=== PATIENT | female | born 1955 | race Caucasian/White ===

== ENCOUNTER 2017-02-26 08:13 | Observation (INO) | payer MEDICARE, BC, SELFPAY ==
[2017-02-26] VITALS (11 sets, daily range): BP systolic 95–157; BP diastolic 48–92; PULSE 65–83; RESP 18–22; TEMP 35.9–37.1; O2SAT 93–98; BMI 36.5; BMI 36.3
--- NOTE | 2017-02-26 | CT_ITS ---
CT angio chest COMPARISON: None HISTORY: Chest pain radiating to back TECHNIQUE: Multiple axial scans obtained from the thoracic inlet the hemidiaphragms and were performed after rapid injection of IV contrast. Sagittal and coronal reformats were evaluated as well. FINDINGS: The lung temple are well expanded. There is excellent vascular opacification and there is no CT evidence of pulmonary emboli. The lung tmeple are free of active infiltrate. There are calcified granulomata in both lung temple. There is no pleural fluid. There are calcified hilar nodes bilaterally. IMPRESSION: No CT evidence of pulmonary emboli and is no other acute chest pathology identified.
--- NOTE | 2017-02-26 08:29 | XR_ITS ---
XR chest 2V COMPARISON: Portable upright chest 09/11/2016 HISTORY: Chest pain TECHNIQUE: PA and lateral chest FINDINGS: The lung temple are well expanded and appear clear of infiltrate. There are multiple calcified hilar nodes bilaterally in the calcified granulomata in both lung temple. Cardiac size is normal and the vascularity is normal and is no pleural fluid. IMPRESSION: Old granulomatous disease, no acute chest pathology noted
--- NOTE | 2017-02-26 08:43 | CT_ITS ---
CT abdomen pelvis w con COMPARISON: CT scan abdomen pelvis 01/05/2015 HISTORY: Abdominal pain especially right upper quadrant, patient has known gallstones. TECHNIQUE: Multiaxial scans obtained from the hemidiaphragms the pelvic floor and were performed with IV contrast only. Sagittal and coronal reformats were evaluated as well. FINDINGS: The lower lung temple are clear. The liver spleen stomach and pancreas appear grossly normal. The gallbladder is normal in size and there are 2-3 calcified gallstones layering along the dependent wall. There is no pericholecystic fluid noted. The adrenal glands are normal. The kidneys are normal in size and show symmetrical function, there is a small benign-appearing cortical cyst upper pole left kidney measuring 1.8 cm in diameter. Small bowel is normal. I do not definite identify the appendix but there are no pericecal inflammatory changes. There is large amount stool in the cecum and ascending colon and proximal transverse colon. There is been previous hysterectomy. Urinary bladder is partially decompressed, there is no free fluid in the pelvis. IMPRESSION: Cholelithiasis with no obvious inflammatory changes involving the gallbladder, other nonacute findings as described above. There does appear to be some degree of constipation present
--- NOTE | 2017-02-26 08:46 | HMH.EDGENADL ---
ED Disposition Clinical Impression: Chest pain, Hypertension, Hyperlipidemia, Tobacco use Disposition: Still a Patient Condition on Discharge: Good - Critical Care Critical Care Time: No Attestation: On 02/26/17, the high probability of a clinically significant, sudden or life threatening deterioration of the following system(s) required my full and direct attention, intervention and personal management. The time I documented below is in addition to time spent performing reported procedures but includes the following listed in this critical care notation. Medical Decision Making Vital Signs: 02/26/17 08:13 02/26/17 08:15 02/26/17 08:40 Temperature 98.8 F 98.8 F Temperature Source Oral Oral Pulse Rate [Right Brachial] 83 83 81 Respiratory Rate 22 22 20 Blood Pressure [Right Arm] 157/92 157/92 123/76 Blood Pressure Mean [Right Arm] 113 113 91 Blood Pressure Source [Right Arm] Automatic Cuff Automatic Cuff Manual Cuff/ Doppler Blood Pressure Position [Right Arm] Sitting Sitting 02 Sat by Pulse Oximetry 98 98 94 L Oxygen Delivery Method Room Air Room Air Room Air 02/26/17 08:47 02/26/17 09:43 Temperature 98.8 F 98.0 F Temperature Source Oral Oral Pulse Rate [Right Brachial] 83 70 Respiratory Rate 22 18 Blood Pressure [Right Arm] 157/92 119/66 Blood Pressure Mean [Right Arm] 113 83 Blood Pressure Source [Right Arm] Automatic Cuff Automatic Cuff Blood Pressure Position [Right Arm] Sitting Sitting 02 Sat by Pulse Oximetry 98 93 L Oxygen Delivery Method Room Air Room Air - Lab Data Lab Results 02/26/17 08:20: WBC 12.5 H, RBC 4.09 L, Hgb 11.6 L, Hct 36.8 L, MCV 90.0, MCH 28.4, MCHC 31.6 L, RDW 13.2, Plt Count 399, MPV 7.8, Neut % (Auto) 60.8, Lymph % (Auto) 33.1, Maverick % (Auto) 4.0, Eos % (Auto) 1.4, Baso % (Auto) 0.7, Neut # (Auto) 7.6, Lymph # (Auto) 4.1, Maverick # (Auto) 0.5, Eos # (Auto) 0.2, Baso # (Auto) 0.1 02/26/17 08:20: Sodium 139, Potassium 3.7, Chloride 102, Carbon Dioxide 28, Anion Gap 12.7, BUN 15, Creatinine 1.05 H, Estimated Creat Clear 84, Estimated GFR 53 L, Est GFR ( Amer) 65, Glucose 100, Total Bilirubin 0.2, Direct Bilirubin 0.1, AST 17, ALT 21, Alkaline Phosphatase 87, Total Creatine Kinase 91, CK-MB (CK-2) < 0.5, CK-MB (CK-2) Rel Index 0.5, Troponin I < 0.02, Total Protein 7.8, Albumin 3.4, Amylase 65, Lipase 225 02/26/17 08:20: Lactic Acid 0.9 Result diagrams: 02/26/17 08:20 02/26/17 08:20 Orders (Tests/Meds): ED MEDICATIONS Generic Name Dose Route Start Last Admin Trade Name Freq PRN Reason Stop Dose Admin Acetaminophen 650 mg 02/26/17 12:13 02/28/17 02:51 Acetaminophen 325mg Tab PO 03/28/17 12:12 650 mg Q4HP PRN Administration As Needed for Fever or Pain Famotidine 20 mg 02/26/17 21:00 02/27/17 20:26 Pepcid 20mg/2ml Vial IV 03/28/17 20:59 20 mg Q12 HAROLDO Administration Fentanyl Citrate 50 mcg 02/28/17 07:39 Fentanyl 100mcg/2ml Vial IV 03/01/17 07:39 Q3MINP PRN Moderate to Severe Pain Fentanyl Citrate 25 mcg 02/28/17 07:39 Fentanyl 100mcg/2ml Vial IV 03/01/17 07:39 Q3MINP PRN Moderate to Severe Pain Flumazenil 0.2 mg 02/28/17 07:39 Romazicon 0.1mg/Ml 5ml Vial IV 02/28/17 23:00 NEEDED PRN Sedation Heparin Sodium (Porcine) 5,000 unit 02/28/17 07:39 Heparin Sodium 5,000 Units/Ml Vial IV 03/01/17 07:39 NEEDED PRN Emergency Box Claims Associate Lactated Ringer's 1,000 mls @ 50 mls/hr 02/26/17 13:30 02/27/17 18:56 Lactated Ringer's 1000 Ml Bag IV 03/28/17 13:29 50 mls/hr .Q20H HAROLDO Administration Sodium Chloride 1,000 mls @ 25 mls/hr 02/28/17 07:45 02/28/17 10:00 Sod Chloride 0.9% 1000ml Bag IV 03/01/17 07:39 25 mls/hr .Q25H HAROLDO Administration Midazolam HCl 1 mg 02/28/17 07:39 Midazolam 2mg/2ml Vial IV 03/01/17 07:40 Q3MINP PRN Sedation Midazolam HCl 1 mg 02/28/17 07:39 Midazolam 1mg/Ml 5ml Vial IV 03/01/17 07:39
--- NOTE | 2017-02-26 08:49 | ED_ITS ---
ED Disposition Clinical Impression: Chest pain, Hypertension, Hyperlipidemia, Tobacco use Disposition: Still a Patient Condition on Discharge: Good - Critical Care Critical Care Time: No Attestation: On 02/26/17, the high probability of a clinically significant, sudden or life threatening deterioration of the following system(s) required my full and direct attention, intervention and personal management. The time I documented below is in addition to time spent performing reported procedures but includes the following listed in this critical care notation. Medical Decision Making Vital Signs: 02/26/17 08:13 02/26/17 08:15 02/26/17 08:40 Temperature 98.8 F 98.8 F Temperature Source Oral Oral Pulse Rate [Right Brachial] 83 83 81 Respiratory Rate 22 22 20 Blood Pressure [Right Arm] 157/92 157/92 123/76 Blood Pressure Mean [Right Arm] 113 113 91 Blood Pressure Source [Right Arm] Automatic Cuff Automatic Cuff Manual Cuff/ Doppler Blood Pressure Position [Right Arm] Sitting Sitting 02 Sat by Pulse Oximetry 98 98 94 L Oxygen Delivery Method Room Air Room Air Room Air 02/26/17 08:47 02/26/17 09:43 Temperature 98.8 F 98.0 F Temperature Source Oral Oral Pulse Rate [Right Brachial] 83 70 Respiratory Rate 22 18 Blood Pressure [Right Arm] 157/92 119/66 Blood Pressure Mean [Right Arm] 113 83 Blood Pressure Source [Right Arm] Automatic Cuff Automatic Cuff Blood Pressure Position [Right Arm] Sitting Sitting 02 Sat by Pulse Oximetry 98 93 L Oxygen Delivery Method Room Air Room Air - Lab Data Lab Results 02/26/17 08:20: WBC 12.5 H, RBC 4.09 L, Hgb 11.6 L, Hct 36.8 L, MCV 90.0, MCH 28.4, MCHC 31.6 L, RDW 13.2, Plt Count 399, MPV 7.8, Neut % (Auto) 60.8, Lymph % (Auto) 33.1, Jerome % (Auto) 4.0, Eos % (Auto) 1.4, Baso % (Auto) 0.7, Neut # ( Auto) 7.6, Lymph # (Auto) 4.1, Jerome # (Auto) 0.5, Eos # (Auto) 0.2, Baso # (Auto ) 0.1 02/26/17 08:20: Sodium 139, Potassium 3.7, Chloride 102, Carbon Dioxide 28, Anion Gap 12.7, BUN 15, Creatinine 1.05 H, Estimated Creat Clear 84, Estimated GFR 53 L, Est GFR ( Amer) 65, Glucose 100, Total Bilirubin 0.2, Direct Bilirubin 0.1, AST 17, ALT 21, Alkaline Phosphatase 87, Total Creatine Kinase 91 , CK-MB (CK-2) < 0.5, CK-MB (CK-2) Rel Index 0.5, Troponin I < 0.02, Total Protein 7.8, Albumin 3.4, Amylase 65, Lipase 225 02/26/17 08:20: Lactic Acid 0.9 Result diagrams: 02/26/17 08:20 02/26/17 08:20 Orders (Tests/Meds): ED MEDICATIONS Generic Name Dose Route Start Last Admin Trade Name Freq PRN Reason Stop Dose Admin Acetaminophen 650 mg 02/26/17 12:13 02/28/17 02:51 Acetaminophen 325mg Tab PO 03/28/17 12:12 650 mg Q4HP PRN Administration As Needed for Fever or Pain Famotidine 20 mg 02/26/17 21:00 02/27/17 20:26 Pepcid 20mg/2ml Vial IV 03/28/17 20:59 20 mg Q12 HAROLDO Administration Fentanyl Citrate 50 mcg 02/28/17 07:39 Fentanyl 100mcg/2ml Vial IV 03/01/17 07:39 Q3MINP PRN Moderate to Severe Pain Fentanyl Citrate 25 mcg 02/28/17 07:39 Fentanyl 100mcg/2ml Vial IV 03/01/17 07:39 Q3MINP PRN Moderate to Severe Pain Flumazenil 0.2 mg 02/28/17 07:39 Romazicon 0.1mg/Ml 5ml Vial IV 02/28/17 23:00 NEEDED PRN Sedatio
[2017-02-26 08:56] LABS: Hematocrit 36.8 % (37.0-47.0); Hemoglobin 11.6 g/dL (12.2-16.2); Mean Corpuscular HGB Conc 31.6 g/dL (31.8-35.4); Mean Corpuscular Hemoglobin 28.4 pg (27.0-31.2); Red Blood Count 4.09 M/mm3 (4.20-5.40); Red Cell Distribution Width 13.2 % (11.5-17.5); White Blood Count 12.5 K/mm3 (4.8-10.8)
[2017-02-26 08:57] LABS: Basophils # 0.1 K/mm3 (0-0.2); Basophils % 0.7 % (0.1-2.0); Eosinophils # 0.2 K/mm3 (0.0-0.4); Eosinophils % 1.4 % (0.1-12.0); Lymphocytes # 4.1 K/mm3 (0.7-4.5); Lymphocytes % 33.1 K/mm3 (10-50); Mean Platelet Volume 7.8 fl (7.4-10.4); Monocytes # 0.5 K/mm3 (0.1-1.0); Neutrophils # 7.6 K/mm3 (1.8-7.8); Neutrophils % 60.8 % (37.0-80.0); Platelet Count 399 K/mm3 (142-424)
[2017-02-26 09:10] LABS: Amylase 65 U/L (25-125); Anion Gap 12.7 mEq/L (5-15); Blood Urea Nitrogen 15 mg/dL (7-18); CKMB Relative Index 0.5 U/L (0-4.0); Carbon Dioxide 28 mmol/L (21.0-32.0); Chloride 102 mmol/L (98-107); Creatine Kinase 91 U/L (26-192); Creatine Kinase MB < 0.5 mg/ml (0.0-3.6); Creatinine Clearance Estimated 84 mL/min (0-300); Creatinine,Serum 1.05 mg/dL (0.55-1.02); Estimated Glomerular Filt Rate 53 ml/min (>60); GFR (African American) 65 ML/MIN (>60); Glucose 100 mg/dL (74-106); Lipase 225 u/L (73-393); Potassium 3.7 mmoL/L (3.5-5.1); Sodium 139 mmol/L (136-145); Troponin I < 0.02 ng/ml (0.00-0.06)
[2017-02-26 09:43] LABS: Alanine Aminotransferase 21 U/L (12-78); Albumin Level 3.4 gm/dL (3.4-5.0); Alkaline Phosphatase 87 U/L (46-116); Aspartate Amino Transferase 17 U/L (15-37); Bilirubin,Direct 0.1 mg/dL (0.0-0.2); Bilirubin,Total 0.2 mg/dL (0.2-1.0); Total Protein,Serum 7.8 gm/dL (6.4-8.2)
[2017-02-26 10:15] LABS: Lactic Acid 0.9 mmol/L (0.4-2.0)
--- NOTE | 2017-02-26 17:08 | PC.NURSE ---
PATIENT IS A 61 YEAR OLD FEMALE ADMITTED TODAY FOR CHEST PAIN.SHE WAS GIVEN NITRO IN THE ER, AFTER COMING TO FLOOR SHE SAID HER CHEST WAS HURTING AGAIN, I GAVE HER ANOTHER NITRO AND SHE HAS NOT HAD ANY MORE CHEST PAIN. PATIENT IS RESTING IN BED AT THIS TIME , AT BEDSIDE. NO DISTRESS NOTED/ WILL CONTINUE TO MONITOR.
[2017-02-27] VITALS (10 sets, daily range): BP systolic 90–135; BP diastolic 48–72; PULSE 60–80; RESP 18–20; TEMP 36.4–36.8; O2SAT 90–96
[2017-02-27 04:43] LABS: Troponin I < 0.02 ng/ml (0.00-0.06)
--- NOTE | 2017-02-27 06:16 | PC.NURSE ---
pt has c/o chest pain, episgastric discomfort and stomach cramps this shift. she has been nsr on telemetry. v/s have remained stable. pt is c/o a headache this am. medications administered per apr. She is npo at this time for [facility] consult. no other concerns at this time. will continue to monitor.
--- NOTE | 2017-02-27 07:35 | HMH.PHAVTE ---
[facility] Pharmacy VTE Monitoring - Patient Demographics Admission date: 02/27/17 Report Date: 02/27/17 Time: 07:35 Allergies/Adverse Reactions: latex [LATEX] Allergy (Intermediate, Verified 02/26/17 08:49) I-RASH codeine [CODEINE] Allergy (Mild, Verified 02/26/17 08:49) NA-NAUSEA, CHEST PRESSURE tuberculin,PPD,multi-puncture [TUBERCULIN,PPD,MULTI-PUNCTURE] Allergy (Mild, Verified 02/26/17 08:49) POSITIVE REACTOR sulfamethoxazole [From BACTRIM] Allergy (Unknown, Verified 02/26/17 08:49) RASH,VOMITING trimethoprim [From BACTRIM] Allergy (Unknown, Verified 02/26/17 08:49) Height: 1.6 m Weight: 92.986 kg Patient Problems: Current Active Problems Chest pain (Acute) Hypertension (Acute) Hyperlipidemia (Acute) Tobacco use (Acute) - VTE Risk Labs: VTE Related Lab Results Hgb 11.6 g/dL (12.2-16.2) L 02/26/17 08:20 Hct 36.8 % (37.0-47.0) L 02/26/17 08:20 Plt Count 399 K/mm3 (142-424) 02/26/17 08:20 BUN 15 mg/dL (7-18) 02/26/17 08:20 Creatinine 1.05 mg/dL (0.55-1.02) H 02/26/17 08:20 Estimated Creat Clear 84 mL/min (0-300) 02/26/17 08:20 Was VTE Risk Assessment Performed: Yes VTE Risk Level: Very Low Risk - Prophylaxis VTE Prophylaxis Ordered?: Yes Types of VTE Prophylaxis: TEDS Knee High Location of Applied Device: Bilateral Lower Extremeties - VTE Diagnosis Confirmed Treatment or plan recommended: Continue Current Treatment
--- NOTE | 2017-02-27 08:03 | PC.NURSE ---
REPORT HANDED OF TO VICKIE
--- NOTE | 2017-02-27 08:25 | HMH.CARDCON2 ---
History of Present Illness Consult date: 02/27/17 Requesting physician: Luis Eckert Consult reason: chest pain Chief complaint: chest pain, palpitations History of present illness: 61-year-old white female with history of hypertension, hyperlipidemia and long-term tobacco use admitted to hospital through the ER for recurrent chest pain. Patient relates recent progressive episodes of chest discomfort and palpitations to the point that they are waking her from sleep at night. Last night symptoms were worse in intensity frequency and duration which prompted EMS call and transport to the hospital. Patient did receive nitroglycerin ?3 en route with questionable relief versus symptoms abating on their own. Patient does have exertional shortness of breath. She denies diaphoresis, nausea or vomiting. She does have known gallstones for many years without problems. Troponins have returned normal. EKG is sinus and unremarkable. Cardiology consulted for evaluation recommendations. She did receive an aspirin last evening. She does take PPI on a regular basis without evidence of reflux symptoms. Review of Systems - *Cardiovascular Reports chest pain, Reports shortness of breath with activity - *Respiratory Reports shortness of breath with activity [facility] History Medical History: Reports:: Atrial Fibrillation, Hyperlipidemia, Hypertension Denies:: Cancer, Diabetes Mellitus Type 1, Diabetes Mellitus Type 2, MRSA Laterality Cases: Left: Other Other Surgeries: Yes: Hysterectomy-Total, Tubal Ligation, Other. No: Pacemaker Amputation: No Fractures: Yes (ORIF left wrist) - *Social History Educational Level: Completed High School Smoking Status: Current every day smoker Tobacco Type: cigarettes # Packs/Day (cigarettes): 2 Alcohol Intake: never Occupational Status: other - Psychiatric History Expresses thoughts of harming self/others: None Suicide Plan Description: No Plan Meds Home Medications Medication Instructions Recorded Confirmed Type Carvedilol [Coreg 12.5mg 12.5 mg PO DAILY 02/26/17 02/26/17 History Tablet] Lisinopril [Lisinopril 20mg Tab] 20 mg PO DAILY 02/26/17 02/26/17 History Pantoprazole Sodium [Protonix 20mg 20 mg PO DAILY 02/26/17 02/26/17 History Tab] Allergies Allergy/AdvReac Type Severity Reaction Status Date / Time latex [LATEX] Allergy Intermediate I-RASH Verified 02/26/17 08:49 codeine [CODEINE] Allergy Mild NA-NAUSEA, Verified 02/26/17 08:49 CHEST PRESSURE tuberculin,PPD,multi-puncture Allergy Mild POSITIVE Verified 02/26/17 08:49 [TUBERCULIN,PPD,MULTI-PUNCTURE] REACTOR sulfamethoxazole Allergy Unknown RASH,VOMITI Verified 02/26/17 08:49 [From BACTRIM] NG trimethoprim [From BACTRIM] Allergy Unknown Verified 02/26/17 08:49 Exam Vital signs and Labs for Last 24 Hours: Temp Pulse Resp BP Pulse Ox 98.2 F 80 18 91/50 94 L 02/27/17 04:50 02/27/17 04:50 02/27/17 04:50 02/27/17 04:50 02/27/17 04:50 Laboratory Results - last 24 hr 02/27/17 04:10: Troponin I < 0.02 I & O for Last 24 hours: Intake & Output 02/24/17 02/25/17 02/26/17 02/27/17 11:59 11:59 11:59 11:59 Intake Total 660 / 660 Balance 660 / 660 Weight 205 lb - *Routine Neck Exam Absent: JVD, carotid bruit - *Routine Respiratory Exam Present: CTA bilaterally - *Routine Cardiovascular Exam Present: RRR. Absent: murmur, gallop, rubs - *Routine Extremities Exam Present: full ROM. Absent: edema - *Routine Neurological Exam Present: alert, oriented X3, moving all extremities Results 02/26/17 08:20 02/26/17 08:20 Cardiac Enzymes 02/27/17 Range/Units 04:10 Troponin I < 0.02 (0.00-0.06) ng/ml Intake and Output 02/26/17 02/27/17 02/27/17 19:59 03:59 11:59 Intake Total 660 / 660 Balance 660 / 660 Intake: Intake, Oral Amount 400 / 400 Intake, Total IV Amount 260 / 260 0.9 % Sodium Chloride 1,000 ml 2
--- NOTE | 2017-02-27 08:30 | P.CONS_ITS ---
History of Present Illness Consult date: 02/27/17 Requesting physician: Luis Eckert Consult reason: chest pain Chief complaint: chest pain, palpitations History of present illness: 61-year-old white female with history of hypertension, hyperlipidemia and long- term tobacco use admitted to hospital through the ER for recurrent chest pain. Patient relates recent progressive episodes of chest discomfort and palpitations to the point that they are waking her from sleep at night. Last night symptoms were worse in intensity frequency and duration which prompted EMS call and transport to the hospital. Patient did receive nitroglycerin ?3 en route with questionable relief versus symptoms abating on their own. Patient does have exertional shortness of breath. She denies diaphoresis, nausea or vomiting. She does have known gallstones for many years without problems. Troponins have returned normal. EKG is sinus and unremarkable. Cardiology consulted for evaluation recommendations. She did receive an aspirin last evening. She does take PPI on a regular basis without evidence of reflux symptoms. Review of Systems - *Cardiovascular Reports chest pain, Reports shortness of breath with activity - *Respiratory Reports shortness of breath with activity [facility] History Medical History: Reports:: Atrial Fibrillation, Hyperlipidemia, Hypertension Denies:: Cancer, Diabetes Mellitus Type 1, Diabetes Mellitus Type 2, MRSA Laterality Cases: Left: Other Other Surgeries: Yes: Hysterectomy-Total, Tubal Ligation, Other. No: Pacemaker Amputation: No Fractures: Yes (ORIF left wrist) - *Social History Educational Level: Completed High School Smoking Status: Current every day smoker Tobacco Type: cigarettes # Packs/Day (cigarettes): 2 Alcohol Intake: never Occupational Status: other - Psychiatric History Expresses thoughts of harming self/others: None Suicide Plan Description: No Plan Meds Home Medications Medication Instructions Recorded Confirmed Type Carvedilol [Coreg 12.5mg 12.5 mg PO DAILY 02/26/17 02/26/17 History Tablet] Lisinopril [Lisinopril 20mg Tab] 20 mg PO DAILY 02/26/17 02/26/17 History Pantoprazole Sodium [Protonix 20mg 20 mg PO DAILY 02/26/17 02/26/17 History Tab] Allergies Allergy/AdvReac Type Severity Reaction Status Date / Time latex [LATEX] Allergy Intermediate I-RASH Verified 02/26/17 08:49 codeine [CODEINE] Allergy Mild NA-NAUSEA, Verified 02/26/17 08:49 CHEST PRESSURE tuberculin,PPD,multi-puncture Allergy Mild POSITIVE Verified 02/26/17 08:49 [TUBERCULIN,PPD,MULTI-PUNCTURE] REACTOR sulfamethoxazole Allergy Unknown RASH,VOMITI Verified 02/26/17 08:49 [From BACTRIM] NG trimethoprim [From BACTRIM] Allergy Unknown Verified 02/26/17 08:49 Exam Vital signs and Labs for Last 24 Hours: Temp Pulse Resp BP Pulse Ox 98.2 F 80 18 91/50 94 L 02/27/17 04:50 02/27/17 04:50 02/27/17 04:50 02/27/17 04:50 02/27/17 04:50 Laboratory Results - last 24 hr 02/27/17 04:10: Troponin I < 0.02 I & O for Last 24 hours: Intake & Output 02/24/17 02/25/17 02/26/17 02/27/17 11:59 11:59 11:59 11:59 Intake Total 660 / 660 Balance 660 / 660 Weight 205 lb - *Routine Neck Exam Absent: JVD, carotid bruit - *Routine Respiratory Exam Present: CTA b
--- NOTE | 2017-02-27 09:05 | US_ITS ---
US gallbladder Ordering Physician: Luis Eckert MD Patient Age: 61 years: Female HISTORY: ITS.REASON: abd pain/abn ct chest pain. Abdominal pain. TECHNIQUE: Ultrasound right upper quadrant COMPARISON :Previous ultrasound 06/23/2014 RUQ FINDINGS . Pancreas unremarkable. Liver.. Mild fatty changes. No biliary ductal dilatation. No focal lesions. Gallbladder. Multiple gallstones. No gallstones are more evident with the largest measuring up to 1.1 cm. Other small gallstones are seen towards neck of gallbladder. No GB wall thickening. No inflammatory changes. Septation towards neck of gallbladder. Right kidney. 10.3 cm length with no hydronephrosis nor mass. Common duct upper normal diameter measuring 5.2 mm IMPRESSION: Cholelithiasis is again evident. Multiple gallstones. No gallbladder wall thickening. Common duct upper normal diameter
--- NOTE | 2017-02-27 09:09 | HMH.HP ---
*Admission Date: 02/27/17 *Chief complaint: chest pain *History of present illness: pt with acute chest pain with progressive sx over the last few days - pt was seen in the ed with chest pain and abn ct - 4:00 this morning she was awakened with retrosternal sharp chest pain radiating to the left costal margin area, she tried to go back to sleep and the pain intensified and started radiating to the right side subcostal area and the back. She is a smoker with chronic shortness of breath and cough, she denies worsening of the symptoms. He denies having fever or chills green sputum or hemoptysis. She denied having abdominal pain nausea vomiting or diarrhea.61-year-old white female with history of hypertension, hyperlipidemia and long-term tobacco use admitted to hospital through the ER for recurrent chest pain. Patient relates recent progressive episodes of chest discomfort and palpitations to the point that they are waking her from sleep at night. Last night symptoms were worse in intensity frequency and duration which prompted EMS call and transport to the hospital. Patient did receive nitroglycerin ?3 en route with questionable relief versus symptoms abating on their own. Patient does have exertional shortness of breath. She denies diaphoresis, nausea or vomiting. She does have known gallstones for many years without problems. Troponins have returned normal. EKG is sinus and unremarkable. Cardiology consulted for evaluation recommendations. She did receive an aspirin last evening. She does take PPI on a regular basis without evidence of reflux symptoms. Review of Systems [facility] History I have reviewed the patient's past medical history: Yes Medical History: Reports:: Atrial Fibrillation, Hyperlipidemia, Hypertension Denies:: Cancer, Diabetes Mellitus Type 1, Diabetes Mellitus Type 2, MRSA Laterality Cases: Left: Other Other Surgeries: Yes: Hysterectomy-Total, Tubal Ligation, Other. No: Pacemaker Amputation: No Fractures: Yes (ORIF left wrist) - *Social History Educational Level: Completed High School Smoking Status: Current every day smoker Tobacco Type: cigarettes # Packs/Day (cigarettes): 2 Alcohol Intake: never Occupational Status: other - Psychiatric History Expresses thoughts of harming self/others: None Suicide Plan Description: No Plan Review of Systems - Review of Systems Review of systems:: pertinent systems reviewed and negative unless documented below - Constitutional Denies headache(s), Denies weakness - Eyes Denies change in vision - ENT Denies neck pain, Denies sore throat - *Cardiovascular Reports chest pain at rest, Reports chest pain with activity, Reports shortness of breath, Denies rapid, pounding, or irregular heartbeat - *Respiratory Reports shortness of breath, Denies cough - *Gastrointestinal Reports nausea, Reports vomiting, Denies black, tarry stools - *Musculoskeletal Denies joint pain, Denies joint swelling - Integumentary/Breasts Denies rash - *Neurologic Denies seizure-like activity Meds Home Medications Medication Instructions Recorded Confirmed Type Carvedilol [Coreg 12.5mg 12.5 mg PO DAILY 02/26/17 02/26/17 History Tablet] Lisinopril [Lisinopril 20mg Tab] 20 mg PO DAILY 02/26/17 02/26/17 History Pantoprazole Sodium [Protonix 20mg 20 mg PO DAILY 02/26/17 02/26/17 History Tab] Allergies Allergy/AdvReac Type Severity Reaction Status Date / Time latex [LATEX] Allergy Intermediate I-RASH Verified 02/26/17 08:49 codeine [CODEINE] Allergy Mild NA-NAUSEA, Verified 02/26/17 08:49 CHEST PRESSURE tuberculin,PPD,multi-puncture Allergy Mild POSITIVE Verified 02/26/17 08:49 [TUBERCULIN,PPD,MULTI-PUNCTURE] REACTOR sulfamethoxazole Allergy Unknown RASH,VOMITI Verified 02/26/17 08:49 [From BACTRIM] NG trimethoprim [From BACTRIM] Allergy Unknown Verified 02/26/17 08:49 Exam Vital signs and Labs for Last 24 Hours: Temp Pulse Resp B
--- NOTE | 2017-02-27 09:12 | P.HP_ITS ---
*Admission Date: 02/27/17 *Chief complaint: chest pain *History of present illness: pt with acute chest pain with progressive sx over the last few days - pt was seen in the ed with chest pain and abn ct - 4:00 this morning she was awakened with retrosternal sharp chest pain radiating to the left costal margin area, she tried to go back to sleep and the pain intensified and started radiating to the right side subcostal area and the back. She is a smoker with chronic shortness of breath and cough, she denies worsening of the symptoms. He denies having fever or chills green sputum or hemoptysis. She denied having abdominal pain nausea vomiting or diarrhea.61-year-old white female with history of hypertension, hyperlipidemia and long-term tobacco use admitted to hospital through the ER for recurrent chest pain. Patient relates recent progressive episodes of chest discomfort and palpitations to the point that they are waking her from sleep at night. Last night symptoms were worse in intensity frequency and duration which prompted EMS call and transport to the hospital. Patient did receive nitroglycerin ?3 en route with questionable relief versus symptoms abating on their own. Patient does have exertional shortness of breath. She denies diaphoresis, nausea or vomiting. She does have known gallstones for many years without problems. Troponins have returned normal. EKG is sinus and unremarkable. Cardiology consulted for evaluation recommendations. She did receive an aspirin last evening. She does take PPI on a regular basis without evidence of reflux symptoms. Review of Systems [facility] History I have reviewed the patient's past medical history: Yes Medical History: Reports:: Atrial Fibrillation, Hyperlipidemia, Hypertension Denies:: Cancer, Diabetes Mellitus Type 1, Diabetes Mellitus Type 2, MRSA Laterality Cases: Left: Other Other Surgeries: Yes: Hysterectomy-Total, Tubal Ligation, Other. No: Pacemaker Amputation: No Fractures: Yes (ORIF left wrist) - *Social History Educational Level: Completed High School Smoking Status: Current every day smoker Tobacco Type: cigarettes # Packs/Day (cigarettes): 2 Alcohol Intake: never Occupational Status: other - Psychiatric History Expresses thoughts of harming self/others: None Suicide Plan Description: No Plan Review of Systems - Review of Systems Review of systems:: pertinent systems reviewed and negative unless documented below - Constitutional Denies headache(s), Denies weakness - Eyes Denies change in vision - ENT Denies neck pain, Denies sore throat - *Cardiovascular Reports chest pain at rest, Reports chest pain with activity, Reports shortness of breath, Denies rapid, pounding, or irregular heartbeat - *Respiratory Reports shortness of breath, Denies cough - *Gastrointestinal Reports nausea, Reports vomiting, Denies black, tarry stools - *Musculoskeletal Denies joint pain, Denies joint swelling - Integumentary/Breasts Denies rash - *Neurologic Denies seizure-like activity Meds Home Medications Medication Instructions Recorded Confirmed Type Carvedilol [Coreg 12.5mg 12.5 mg PO DAILY 02/26/17 02/26/17 History Tablet] Lisinopril [Lisinopril 20mg Tab] 20 mg PO DAILY 02/26/17 02/26/17 History Pantoprazole Sodium [Protonix 20mg 20 mg PO DAILY 02/26/17 02/26/17 History Tab] Allergies Allergy/AdvReac Type Severity Reaction Status Date / Time latex [LATEX] Allergy Intermediate I-RASH Verified 02/26/17 08:49
--- NOTE | 2017-02-27 09:45 | CA_ITS ---
PROCEDURE: 2-D M-mode and color Doppler study INDICATIONS FOR THE TEST: Chest painX COPDX Heart Murmur Tobacco SmokingX Palpitations Fatigue Syncope Edema Hypertension Diabetes Mellitus Rheumatic Fever SOB DOEXObesityXHyperlipidemia Family History HD Additional History PATIENT INFORMATION HEIGHT:63 WEIGHT:205 GENDER: Female B/P:91/51 2-D/M-MODE INTERPRETATION: 2-D MEASUREMENTS OBSERVED VALUES IN CMS Right Ventricular Dimension (RVDd) 2.0 Interventricular Septum (Thickness)(IVsd) .8 Left Ventricular Internal Dimensions(LVIDd) 5.7 Left Ventricular Posterior Wall (Thickness)(LVPWd) 1.0 Aortic Root 3.2 Aortic Cusp Separation 1.7 Left Atrial Dimensions (LAD) 3.3 2D 1. Technically difficult study because of the patient's factor and poor acrostic Windows. 2. Left atrium is mildly enlarged, left ventricle is normal size, there is mild concentric left ventricular hypertrophy, visually estimated ejection fraction 55% with no obvious regional wall motion abnormality. 3. The right atrium and right ventricle are normal size and contractility. 4. The aortic valve is minimally thickened and fibrosed. 5. The mitral and tricuspid valve are grossly normal. 6. The pulmonic valve is poorly visualized. 7. No significant pericardial effusion noted. DOPPLER INTERROGATION: Doppler interrogation of the aortic, mitral and tricuspid valvular presence of mild mitral and tricuspid regurgitation, calculated right ventricular systolic pressure 38 mmHg consistent with mild pulmonary hypertension, grade 1 diastolic dysfunction seen without tissue Doppler evidence of raised left atrial pressure. CONCLUSION: 1. Mildly enlarged left atrium, normal left ventricular size, mild concentric left ventricular hypertrophy, visually estimated ejection fraction 55% with no obvious regional wall motion abnormality, grade 1 diastolic dysfunction seen without tissue Doppler evidence of raised left atrial pressure. 2. Mild mitral and tricuspid regurgitation, calculated right ventricular systolic pressure is 38 mmHg consistent with mild pulmonary hypertension. 3. No significant pericardial effusion noted.
[2017-02-28] VITALS (21 sets, daily range): BP systolic 98–146; BP diastolic 46–73; PULSE 58–80; RESP 13–24; TEMP 36.1–36.9; O2SAT 90–99
--- NOTE | 2017-02-28 | IR_ITS ---
CARDIAC CATHETERIZATION DATE OF CATHETERIZATION:02/28/2017 11:48 AM PROCEDURES: 1. Left heart catheterization 2. Left ventriculogram 3. Selective coronary angiogram INDICATION FOR TEST: 1. OSMAN score III 2. Risk factors for coronary artery disease 3. Cholelithiasis with preoperative evaluation Informed consent was obtained prior to the procedure. COMPLICATIONS: None ESTIMATED BLOOD LOSS: Less than 10 ml. TECHNIQUE: One percent lidocaine used to anesthetize the right anterior aspect of the wrist. The right radial artery was accessed via the Seldinger technique. A 6 [place] sheath was placed in the right radial artery. 2.5 mg of verapamil, 800 mcg of nitroglycerin and 5000 U Heparin were given through the arterial sheath. The trap catheter was also used to perform left heart catheterization and left ventriculography. At the end of the procedure the patient was transferred to the post-op holding area in stable condition for arterial sheath removal. ANGIOGRAPHIC RESULTS: 1. The left main artery normal 2. The left anterior descending artery proximally and mid vessel is normal 3. The circumflex artery is a dominant vessel and has mid vessel 20 and 30% nonflow limiting stenoses 4. The right coronary artery is a nondominant yet still large vessel and has a mid vessel smooth 20-30% stenosis 5. The PHAM ventriculogram reveals hyperdynamic at 70% 6. The left ventricular end-diastolic pressure moderately to severely elevated at 30 mmHg IMPRESSION: 1. Mild nonflow limiting coronary artery disease 2. Slightly hyperdynamic ventricle consistent with hypertensive heart disease 3. Moderate to severely elevated LVEDP consistent with moderate to severe diastolic dysfunction PLAN: 1. Patient is a low risk from a cardiac standpoint to proceed with cholecystectomy 2. Patient's dyspnea stems from diastolic heart failure therefore she would benefit from negative inotropes such as diltiazem or verapamil combined with beta blockers. 3. Diuretics would also benefit patient's dyspnea by decreasing EDP 4. Risk factor modification
--- NOTE | 2017-02-28 07:36 | PC.NURSE ---
REPORT GIVEN TO Waldo PATEL
--- NOTE | 2017-02-28 08:07 | PC.NURSE ---
PT RESTING IN BED. V/S HAVE REMAINED STABLE. PT HAS REMAINED NSR ON TELEMETRY. SHE HAS C/O EPIGASTRIC PAIN AND A HEADACHE. SHE REMAINS NPO AT THIS TIME FOR HEART CATH THIS AM. PT HAS AMBULATED TO BATHROOM WITH ASSISTANCE. NO OTHER CONCERNS AT THIS TIME. WILL CONTINUE TO MONITOR.
--- NOTE | 2017-02-28 10:22 | HMH.ACPN ---
Internal Medicine - PN: Subj *Date: 02/28/17 *Time: 10:22 Interval history: still with episodes of pain - cath today and surg consult Exam Vital signs and Labs for Last 24 Hours: Temp Pulse Resp BP Pulse Ox 98.5 F 68 20 125/59 95 02/28/17 07:55 02/28/17 07:55 02/28/17 07:55 02/28/17 07:55 02/28/17 07:55 I & O for Last 24 hours: Intake & Output 02/25/17 02/26/17 02/27/17 02/28/17 11:59 11:59 11:59 11:59 Intake Total 1140 / 1140 360 / 360 Balance 1140 / 1140 360 / 360 Weight 205 lb 202 lb 6 oz - Constitutional no acute distress - *Routine HEENT Exam Head: Present: normocephalic Eye: Present: EOMI, PERRL. Absent: scleral injection ENT: Present: mucous membranes dry - *Routine Neck Exam Present: supple - *Routine Respiratory Exam Absent: respiratory distress - *Routine Cardiovascular Exam Present: RRR, murmur - *Routine Abdominal Exam Present: soft - *Routine Extremities Exam Absent: cyanosis - *Routine Skin Exam Present: intact - *Routine Neurological Exam Present: alert, oriented X3, CN II-XII intact - Routine Psychiatric Exam Present: normal affect Assessment and Plan (1) Cholelithiasis Current visit: Yes Status: Acute Qualifiers: Cholangitis presence: without cholangitis Biliary obstruction: without biliary obstruction Category: Medical Code(s): K80.20 - Calculus of gallbladder without cholecystitis without obstruction
[2017-02-28 11:45] LABS: Lipase 167 u/L (73-393)
--- NOTE | 2017-02-28 11:46 | PC.NURSE ---
PT RETURNED FROM [facility]ER LOOM CONTROL, STABLE, TRACELET IN PLACE NO SWELLING OR BLEEDING NOTED AT THIS TIME AT SITE. VSS, PT PLACED ON 2 L NC DUE TO 02 FALLING INTO THE UPPER 80S. ONCE O2 PLACED RECOVERED TO 94. WILL CONTINUE TO MONITOR
[2017-02-28 11:49] LABS: Alanine Aminotransferase 20 U/L (12-78); Albumin Level 2.9 gm/dL (3.4-5.0); Albumin/Globulin Ratio 0.7 (1.1-1.8); Alkaline Phosphatase 78 U/L (46-116); Amylase 50 U/L (25-125); Anion Gap 8.8 mEq/L (5-15); Aspartate Amino Transferase 20 U/L (15-37); Bilirubin,Total 0.2 mg/dL (0.2-1.0); Blood Urea Nitrogen 9 mg/dL (7-18); Calcium 8.7 mg/dL (8.5-10.1); Carbon Dioxide 29 mmol/L (21.0-32.0); Chloride 106 mmol/L (98-107); Creatinine Clearance Estimated 94 mL/min (0-300); Creatinine,Serum 0.92 mg/dL (0.55-1.02); Estimated Glomerular Filt Rate 62 ml/min (>60); GFR (African American) 75 ML/MIN (>60); Globulin 3.9 gm/dl (1.3-3.2); Glucose 89 mg/dL (74-106); Potassium 3.8 mmoL/L (3.5-5.1); Sodium 140 mmol/L (136-145); Total Protein,Serum 6.8 gm/dL (6.4-8.2)
--- NOTE | 2017-02-28 12:31 | HMH.GSCON ---
*Admission Date: 02/27/17 *Chief complaint: Atypical chest pain; epigastric pain *History of present illness: This is a 61-year-old female seen in consultation from Dr. Eckert for evaluation regarding possible gallbladder disease. She has recently been admitted for evaluation and management of chest pain. Earlier today she underwent cardiac catheterization. The patient did not require stents and she is deemed to be in need of medical management with regard to seemingly mild to moderate disease. She has a long history of gallstones and reevaluation with regard to this during this hospitalization confirmed multiple gallstones of multiple sizes. No evidence of inflammation or biliary obstruction was noted. She also has a history of gastritis and has been on a proton pump inhibitor with some improvement in her symptoms. She describes pain in the epigastric region. She describes this pain as sharp . Radiation to the back but no right or left-sided pain. No association with food. No jaundice. Review of Systems Review of Systems - Constitutional Denies anorexia - Eyes Denies change in vision - ENT Denies dizziness - *Cardiovascular Reports chest pain - *Respiratory Denies cough - *Gastrointestinal Reports abdominal pain (epigastric), Denies change in stools, Denies cramping, Denies vomiting - *Genitourinary Denies abnormal vaginal bleeding - *Musculoskeletal Denies deformity - *Neurologic Denies headache(s), Denies loss of vision, Denies seizure-like activity, Denies weakness - Psychiatric Denies anxiety - Endocrine Denies increased thirst - Hematologic/Lymphatic Denies easy bleeding - Allergic/Immunologic Denies throat swelling [facility] History Medical History: Reports:: Atrial Fibrillation, Hyperlipidemia, Hypertension Denies:: Cancer, Diabetes Mellitus Type 1, Diabetes Mellitus Type 2, MRSA Laterality Cases: Left: Other Other Surgeries: Yes: Hysterectomy-Total, Tubal Ligation, Other. No: Pacemaker Amputation: No Fractures: Yes (ORIF left wrist) - *Social History Educational Level: Attended High School Smoking Status: Current every day smoker Tobacco Type: cigarettes # Packs/Day (cigarettes): 2 Alcohol Intake: never Occupational Status: other - Psychiatric History Expresses thoughts of harming self/others: None Suicide Plan Description: No Plan Meds Home Medications Medication Instructions Recorded Confirmed Type Pantoprazole Sodium [Protonix 20mg 20 mg PO DAILY 02/26/17 02/26/17 History Tab] Black Cohosh 40 mg PO DAILY 02/27/17 02/27/17 History Calcium Carbonate 1,200 mg PO DAILY 02/27/17 02/27/17 History Carvedilol [Carvedilol 6.25mg Tab] 6.25 mg PO BID 02/27/17 02/27/17 History Lisinopril [Zestril 5mg 5 mg PO DAILY 02/27/17 02/27/17 History Tablet] Lovastatin 10 mg PO HS 02/27/17 02/27/17 History Allergies Allergy/AdvReac Type Severity Reaction Status Date / Time latex [LATEX] Allergy Intermediate I-RASH Verified 02/26/17 08:49 codeine [CODEINE] Allergy Mild NA-NAUSEA, Verified 02/26/17 08:49 CHEST PRESSURE tuberculin,PPD,multi-puncture Allergy Mild POSITIVE Verified 02/26/17 08:49 [TUBERCULIN,PPD,MULTI-PUNCTURE] REACTOR sulfamethoxazole Allergy Unknown RASH,VOMITI Verified 02/26/17 08:49 [From BACTRIM] NG trimethoprim [From BACTRIM] Allergy Unknown Verified 02/26/17 08:49 Exam Vital signs and Labs for Last 24 Hours: Temp Pulse Resp BP Pulse Ox 97.2 F L 61 20 119/59 98 02/28/17 12:00 02/28/17 12:00 02/28/17 12:00 02/28/17 12:00 02/28/17 12:00 Laboratory Results - last 24 hr 02/28/17 11:30: Sodium 140, Potassium 3.8, Chloride 106, Carbon Dioxide 29, Anion Gap 8.8, BUN 9 D, Creatinine 0.92, Estimated Creat Clear 94, Estimated GFR 62, Est GFR ( Amer) 75, Glucose 89, Calcium 8.7, Total Bilirubin 0.2, AST 20, ALT 20, Alkaline Phosphatase 78, Total Protein 6.8, Albumin 2.9 L, Globulin 3.9 H, Albumin/Globuli
--- NOTE | 2017-02-28 12:34 | P.CONS_ITS ---
*Admission Date: 02/27/17 *Chief complaint: Atypical chest pain; epigastric pain *History of present illness: This is a 61-year-old female seen in consultation from Dr. Eckert for evaluation regarding possible gallbladder disease. She has recently been admitted for evaluation and management of chest pain. Earlier today she underwent cardiac catheterization. The patient did not require stents and she is deemed to be in need of medical management with regard to seemingly mild to moderate disease. She has a long history of gallstones and reevaluation with regard to this during this hospitalization confirmed multiple gallstones of multiple sizes. No evidence of inflammation or biliary obstruction was noted. She also has a history of gastritis and has been on a proton pump inhibitor with some improvement in her symptoms. She describes pain in the epigastric region. She describes this pain as sharp . Radiation to the back but no right or left-sided pain. No association with food. No jaundice. Review of Systems Review of Systems - Constitutional Denies anorexia - Eyes Denies change in vision - ENT Denies dizziness - *Cardiovascular Reports chest pain - *Respiratory Denies cough - *Gastrointestinal Reports abdominal pain (epigastric), Denies change in stools, Denies cramping, Denies vomiting - *Genitourinary Denies abnormal vaginal bleeding - *Musculoskeletal Denies deformity - *Neurologic Denies headache(s), Denies loss of vision, Denies seizure-like activity, Denies weakness - Psychiatric Denies anxiety - Endocrine Denies increased thirst - Hematologic/Lymphatic Denies easy bleeding - Allergic/Immunologic Denies throat swelling [facility] History Medical History: Reports:: Atrial Fibrillation, Hyperlipidemia, Hypertension Denies:: Cancer, Diabetes Mellitus Type 1, Diabetes Mellitus Type 2, MRSA Laterality Cases: Left: Other Other Surgeries: Yes: Hysterectomy-Total, Tubal Ligation, Other. No: Pacemaker Amputation: No Fractures: Yes (ORIF left wrist) - *Social History Educational Level: Attended High School Smoking Status: Current every day smoker Tobacco Type: cigarettes # Packs/Day (cigarettes): 2 Alcohol Intake: never Occupational Status: other - Psychiatric History Expresses thoughts of harming self/others: None Suicide Plan Description: No Plan Meds Home Medications Medication Instructions Recorded Confirmed Type Pantoprazole Sodium [Protonix 20mg 20 mg PO DAILY 02/26/17 02/26/17 History Tab] Black Cohosh 40 mg PO DAILY 02/27/17 02/27/17 History Calcium Carbonate 1,200 mg PO DAILY 02/27/17 02/27/17 History Carvedilol [Carvedilol 6.25mg Tab] 6.25 mg PO BID 02/27/17 02/27/17 History Lisinopril [Zestril 5mg 5 mg PO DAILY 02/27/17 02/27/17 History Tablet] Lovastatin 10 mg PO HS 02/27/17 02/27/17 History Allergies Allergy/AdvReac Type Severity Reaction Status Date / Time latex [LATEX] Allergy Intermediate I-RASH Verified 02/26/17 08:49 codeine [CODEINE] Allergy Mild NA-NAUSEA, Verified 02/26/17 08:49 CHEST PRESSURE tuberculin,PPD,multi-puncture Allergy Mild POSITIVE Verified 02/26/17 08:49 [TUBERCULIN,PPD,MULTI-PUNCTURE] REACTOR sulfamethoxazole Allergy Unknown RASH,VOMITI Verified 02/26/17 08:49 [From BACTRIM] NG trimethoprim [From BACTRIM] Allergy Unknown Verified
--- NOTE | 2017-02-28 14:02 | HMH.CARDPN2 ---
Subjective PN (PG) Date: 02/28/17 Time: 14:02 Interval history: Pt scheduled for cardiac cath today. PN Exam ([facility]) Vital signs: Temp Pulse Resp BP Pulse Ox 97.0 F L 80 20 120/69 98 02/28/17 13:45 02/28/17 13:45 02/28/17 13:45 02/28/17 13:45 02/28/17 13:45 A/P Progress Note ([facility]) (1) Chest pain Status: Acute Assessment and plan: Cardiac cath showed non-flow limiting CAD with hyperdynamic EF. BP is controlled on home coreg and lisinopril meds and would continue that regimen. OK for cholecystectomy from cardiology standpoint if needed. Current Visit: Yes (2) Hyperlipidemia Status: Acute Current Visit: Yes (3) Hypertension Status: Acute Current Visit: Yes (4) Tobacco use Status: Acute Current Visit: Yes
--- NOTE | 2017-02-28 14:05 | P.PN_ITS ---
Subjective PN (PG) Date: 02/28/17 Time: 14:02 Interval history: Pt scheduled for cardiac cath today. PN Exam ([facility]) Vital signs: Temp Pulse Resp BP Pulse Ox 97.0 F L 80 20 120/69 98 02/28/17 13:45 02/28/17 13:45 02/28/17 13:45 02/28/17 13:45 02/28/17 13:45 A/P Progress Note ([facility]) (1) Chest pain Status: Acute Assessment and plan: Cardiac cath showed non-flow limiting CAD with hyperdynamic EF. BP is controlled on home coreg and lisinopril meds and would continue that regimen. OK for cholecystectomy from cardiology standpoint if needed. Current Visit: Yes (2) Hyperlipidemia Status: Acute Current Visit: Yes (3) Hypertension Status: Acute Current Visit: Yes (4) Tobacco use Status: Acute Current Visit: Yes
--- NOTE | 2017-02-28 15:12 | PC.NURSE ---
Pt resting in bed, vss, traclet removed, no swelling or bleeding noted at site, 2x2 and tegederm placed over site, n/v noted, MD aware, pt states she has pain in back as before, MD aware, no new orders at this time. vss, plan for scope tomorrow. will continue to monitor
--- NOTE | 2017-02-28 15:58 | HMH.DCSUM ---
General - General Admission date: 02/27/17 Discharge date: 02/28/17 HPI HPI: This is a 61-year-old female seen in consultation from Dr. Eckert for evaluation regarding possible gallbladder disease. She has recently been admitted for evaluation and management of chest pain. Earlier today she underwent cardiac catheterization. The patient did not require stents and she is deemed to be in need of medical management with regard to seemingly mild to moderate disease. She has a long history of gallstones and reevaluation with regard to this during this hospitalization confirmed multiple gallstones of multiple sizes. No evidence of inflammation or biliary obstruction was noted. She also has a history of gastritis and has been on a proton pump inhibitor with some improvement in her symptoms. She describes pain in the epigastric region. She describes this pain as sharp . Radiation to the back but no right or left-sided pain. No association with food. No jaundice. Review of Systems Objective Vital signs: Temp Pulse Resp BP Pulse Ox 97.2 F L 61 13 122/67 95 02/28/17 15:15 02/28/17 15:15 02/28/17 15:15 02/28/17 15:15 02/28/17 14:15 no acute distress - *Routine HEENT Exam Head: Present: normocephalic Eye: Present: EOMI, PERRL ENT: Present: mucous membranes moist - *Routine Neck Exam Present: supple - *Routine Respiratory Exam Absent: respiratory distress - *Routine Cardiovascular Exam Present: murmur - *Routine Abdominal Exam Present: soft, tenderness. Absent: rebound, guarding, organomegaly - *Routine Extremities Exam Absent: cyanosis - *Routine Skin Exam Present: intact - *Routine Neurological Exam Present: alert, oriented X3, CN II-XII intact - Routine Psychiatric Exam Present: normal affect Hospital Course Hospital Course: pt with card consult with possible angina - see report and had cath which showed no stents needed at this time and she has abd pain with gall stones and seen by surg and will be followed as op Results Labs on day of discharge: Labs from last 24 hours 02/28/17 02/28/17 11:30 11:30 Sodium 140 Potassium 3.8 Chloride 106 Carbon Dioxide 29 Anion Gap 8.8 BUN 9 D Creatinine 0.92 Estimated Creat Clear 94 Estimated GFR 62 Est GFR ( Amer) 75 Glucose 89 Calcium 8.7 Total Bilirubin 0.2 AST 20 ALT 20 Alkaline Phosphatase 78 Total Protein 6.8 Albumin 2.9 L Globulin 3.9 H Albumin/Globulin Ratio 0.7 L Amylase 50 Lipase 167 DS: Diagnosis - Discharge Diagnosis (1) Cholelithiasis Status: Deleted (2) Chest pain Status: Acute (3) Hypertension Status: Acute (4) Hyperlipidemia Status: Acute (5) Tobacco use Status: Acute Meds Home Medications Medication Instructions Recorded Confirmed Type Pantoprazole Sodium [Protonix 20mg 20 mg PO DAILY 02/26/17 02/26/17 History Tab] Black Cohosh 40 mg PO DAILY 02/27/17 02/27/17 History Calcium Carbonate 1,200 mg PO DAILY 02/27/17 02/27/17 History Carvedilol [Carvedilol 6.25mg Tab] 6.25 mg PO BID 02/27/17 02/27/17 History Lisinopril [Zestril 5mg 5 mg PO DAILY 02/27/17 02/27/17 History Tablet] Lovastatin 10 mg PO HS 02/27/17 02/27/17 History Allergies Allergy/AdvReac Type Severity Reaction Status Date / Time latex [LATEX] Allergy Intermediate I-RASH Verified 02/26/17 08:49 codeine [CODEINE] Allergy Mild NA-NAUSEA, Verified 02/26/17 08:49 CHEST PRESSURE tuberculin,PPD,multi-puncture Allergy Mild POSITIVE Verified 02/26/17 08:49 [TUBERCULIN,PPD,MULTI-PUNCTURE] REACTOR sulfamethoxazole Allergy Unknown RASH,VOMITI Verified 02/26/17 08:49 [From BACTRIM] NG trimethoprim [From BACTRIM] Allergy Unknown Verified 02/26/17 08:49 Discharge Plan - Patient Discharge Instructions ACTIVITY: Continue current activity DIET: continue same diet Additional Instructions: see dr larsen
--- NOTE | 2017-02-28 16:02 | P.DS_ITS ---
General - General Admission date: 02/27/17 Discharge date: 02/28/17 HPI HPI: This is a 61-year-old female seen in consultation from Dr. Eckert for evaluation regarding possible gallbladder disease. She has recently been admitted for evaluation and management of chest pain. Earlier today she underwent cardiac catheterization. The patient did not require stents and she is deemed to be in need of medical management with regard to seemingly mild to moderate disease. She has a long history of gallstones and reevaluation with regard to this during this hospitalization confirmed multiple gallstones of multiple sizes. No evidence of inflammation or biliary obstruction was noted. She also has a history of gastritis and has been on a proton pump inhibitor with some improvement in her symptoms. She describes pain in the epigastric region. She describes this pain as sharp . Radiation to the back but no right or left-sided pain. No association with food. No jaundice. Review of Systems Objective Vital signs: Temp Pulse Resp BP Pulse Ox 97.2 F L 61 13 122/67 95 02/28/17 15:15 02/28/17 15:15 02/28/17 15:15 02/28/17 15:15 02/28/17 14:15 no acute distress - *Routine HEENT Exam Head: Present: normocephalic Eye: Present: EOMI, PERRL ENT: Present: mucous membranes moist - *Routine Neck Exam Present: supple - *Routine Respiratory Exam Absent: respiratory distress - *Routine Cardiovascular Exam Present: murmur - *Routine Abdominal Exam Present: soft, tenderness. Absent: rebound, guarding, organomegaly - *Routine Extremities Exam Absent: cyanosis - *Routine Skin Exam Present: intact - *Routine Neurological Exam Present: alert, oriented X3, CN II-XII intact - Routine Psychiatric Exam Present: normal affect Hospital Course Hospital Course: pt with card consult with possible angina - see report and had cath which showed no stents needed at this time and she has abd pain with gall stones and seen by surg and will be followed as op Results Labs on day of discharge: Labs from last 24 hours 02/28/17 02/28/17 11:30 11:30 Sodium 140 Potassium 3.8 Chloride 106 Carbon Dioxide 29 Anion Gap 8.8 BUN 9 D Creatinine 0.92 Estimated Creat Clear 94 Estimated GFR 62 Est GFR ( Amer) 75 Glucose 89 Calcium 8.7 Total Bilirubin 0.2 AST 20 ALT 20 Alkaline Phosphatase 78 Total Protein 6.8 Albumin 2.9 L Globulin 3.9 H Albumin/Globulin Ratio 0.7 L Amylase 50 Lipase 167 DS: Diagnosis - Discharge Diagnosis (1) Cholelithiasis Status: Deleted (2) Chest pain Status: Acute (3) Hypertension Status: Acute (4) Hyperlipidemia Status: Acute (5) Tobacco use Status: Acute Meds Home Medications Medication Instructions Recorded Confirmed Type Pantoprazole Sodium [Protonix 20mg 20 mg PO DAILY 02/26/17 02/26/17 History Tab] Black Cohosh 40 mg PO DAILY 02/27/17 02/27/17 History Calcium Carbonate 1,200 mg PO DAILY 02/27/17 02/27/17 History Carvedilol [Carvedilol 6.25mg Tab] 6.25 mg PO BID 02/27/17 02/27/17 History
--- NOTE | 2017-03-02 10:52 | PC.NURSE ---
post procedure call made, pt states she is doing well, has f/u appt. denies any questions/concerns at this time
== END 2017-02-28 16:42 | disposition home or self-care (01) ==
LOC: ER 11:08 → 2ND 13:11
PROVIDERS: Internal Medicine; Admitting Provider Family Medicine; Emergency Provider Emergency Medicine; Visit Provider Emergency Medicine
DX: E78.5 Hyperlipidemia, unspecified; Z72.0 Tobacco use; I11.9 Hypertensive heart disease without heart failure; K80.20 Calculus of gallbladder without cholecystitis without obstruction; I25.10 Atherosclerotic heart disease of native coronary artery without angina pectoris; I48.91 Unspecified atrial fibrillation
CPT/HCPCS: 36415; 71046; 71275; 74177; 76705; 80048; 80053; 80076; 82150; 82550; 82553; 83605; 83690; 84484; 85025; 87040; 93005; 93041; 93306; 93458; 96365; 96366; 96375; 99152; 99283; C1725; C1760; C1769; G0378; J1644; J2270; J2405; Q9967

== ENCOUNTER 2017-03-05 03:03 | Emergency (ER) | payer MEDICARE, BC, SELFPAY ==
[2017-03-05 03:05] VITALS: BP 137/80; PULSE 69; RESP 18; TEMP 36.7; O2SAT 93; BMI 36.3
--- NOTE | 2017-03-05 03:36 | HMH.EDEAR ---
ED Disposition Clinical Impression: Tinnitus Qualifiers: Laterality: left Qualified Code(s): H93.12 - Tinnitus, left ear Disposition: Home, Self-Care Condition on Discharge: Fair Instructions: DI for Tinnitus Additional Instructions: Call your primary care provider and your ears nose throat physician on Monday to arrange further evaluation and treatment. Prescriptions: Nortriptyline HCl [Pamelor] 50 mg PO HS #10 cap Referrals: Luis Eckert MD [Primary Care Provider] - - Critical Care Critical Care Time: No Attestation: On , the high probability of a clinically significant, sudden or life threatening deterioration of the following system(s) required my full and direct attention, intervention and personal management. The time I documented below is in addition to time spent performing reported procedures but includes the following listed in this critical care notation. Medical Decision Making Vital Signs: 03/05/17 03:05 Temperature 98.1 F Temperature Source Oral Pulse Rate [Left Radial] 69 Respiratory Rate 18 Blood Pressure [Right Arm] 137/80 Blood Pressure Mean [Right Arm] 99 Blood Pressure Source [Right Arm] Automatic Cuff Blood Pressure Position [Right Arm] Sitting 02 Sat by Pulse Oximetry 93 L Oxygen Delivery Method Room Air - John Inquiry Pt receiving controlled substance: No Medical Decision Making Narrative: My reading indicates that nortriptyline is the most effective pharmacologic treatment, 50 mg nightly. The patient is agreeable to trying this. I have strongly advised her to follow-up with her primary care provider and her ear nose and throat physician for further evaluation and treatment. Ear HPI - General Chief complaint: Ear Stated complaint: Ringing in left ear Mode of Arrival: Ambulatory Limitations: No Limitations Description of Symptoms (Recalled from ER Triage Doc. by RN): left ear ringing - History of Present Illness HPI Narrative: The patient complains of tinnitus in her left ear. It has been going on for 5 months. It has been constant for at least 2 months. She says after going to bed tonight it got worse and awaken her from sleep and therefore she comes to the emergency room. She denies ear pain, vertigo, vomiting, numbness or weakness, headaches, visual disturbance, or pulsatile tinnitus. She is chronically dizzy at all times, but it does not sound vertiginous. No ear discharge. No fever. No current URI symptoms. She does not take aspirin. She has seen an ear nose and throat doctor about this a couple of months ago. She says she had her hearing tested. She says that he told her it was due to her jaw dislocating and recommended that she have treatment for that. - Related Data Home Medications Medication Instructions Recorded Confirmed Pantoprazole Sodium [Protonix 20mg 20 mg PO DAILY 02/26/17 03/05/17 Tab] Black Cohosh 40 mg PO DAILY 02/27/17 03/05/17 Calcium Carbonate 1,200 mg PO DAILY 02/27/17 03/05/17 Carvedilol [Carvedilol 6.25mg Tab] 6.25 mg PO BID 02/27/17 03/05/17 Lisinopril [Zestril 5mg 5 mg PO DAILY 02/27/17 03/05/17 Tablet] Lovastatin 10 mg PO HS 02/27/17 03/05/17 Albuterol Sulfate [Albuterol 1 each INHALATION Q4HP PRN 03/05/17 03/05/17 0.083% 2.5mg/3mL neb] Hydrocodone/Acetaminophen [Lorcet 1 each PO Q6HP PRN 03/05/17 03/05/17 5-325 mg Tablet] Previous Rx's Medication Instructions Recorded ondansetron HCl 4 mg tablet 4 mg PO Q8H PRN 5 Days #15 tab 03/03/17 Nortriptyline HCl [Pamelor] 50 mg PO HS #10 cap 03/05/17 Allergies Allergy/AdvReac Type Severity Reaction Status Date / Time latex [LATEX] Allergy Intermediate I-RASH Verified 03/05/17 03:18 codeine [CODEINE] Allergy Mild NA-NAUSEA, Verified 03/05/17 03:18 CHEST PRESSURE tuberculin,PPD,multi-puncture Allergy Mild POSITIVE Verified 03/05/17 03:18 [TUBERCULIN,PPD,MULTI-PUNCTURE] REACTOR sulfamethoxazole Allergy Unknown RASH,VOMITI Moose
[2017-03-05 04:27] VITALS: BP 137/78; PULSE 82; RESP 16; TEMP 36.7; O2SAT 98
== END 2017-03-05 04:27 | disposition home or self-care (01) ==
PROVIDERS: Emergency Provider Emergency Medicine; PCP Emergency Medicine
DX: H93.12 Tinnitus, left ear (principal); I48.2 Chronic atrial fibrillation; F17.210 Nicotine dependence, cigarettes, uncomplicated; I10 Essential (primary) hypertension; Z86.14 Personal history of Methicillin resistant Staphylococcus aureus infection; Z95.0 Presence of cardiac pacemaker; Z88.6 Allergy status to analgesic agent; Z88.7 Allergy status to serum and vaccine; Z91.040 Latex allergy status
CPT/HCPCS: 99282

== ENCOUNTER → 2017-03-06 11:58 | Outpatient (CLI) | payer MEDICARE, SELFPAY ==
--- NOTE | 2017-03-06 12:04 | CT_ITS ---
EXAM: CT LUNG LOW DOSE WO CONTRAST ORDERING PHYSICIAN: Ke Lafleur MD ------ COMPARISON: EXAM: CT LUNG LOW DOSE WO CONTRAST COMPARISON: Recent CTA chest 02/26/2017 performed through the ER HISTORY: 61-year-old Currently smoker. Smokes 2 packs a days for 32 years = 64 pack-year history smoking No current symptoms. Diagnosis code z 71.6 RADIATION DOSE: CTDI vol(CT dose Index-volume) = 2.94mGy DLP (Dose Length Product) = 101.74 mGy-cm FINDINGS: Lung nodules survey: No suspicious or significant appearing lung nodules are identified Indeterminate/Non-actionable Nodules(Category2): Linear Density related to linear atelectasis and/or scarring the region of minor fissure is seen best on sagittal image [id number] with this there is slight additional 15 and nodularity were it abuts the pleura & mediastinum, medially is seen on image 41. It since this was not evident on 02/26/2017 it appears reflect a recent process or. The airways leading to this area unremarkable. Follow-up in one year would be adequate Benign nodules(Category1). . There are scattered calcified granuloma seen throughout the lung temple bilaterally which are clearly benign features. These all measure less than 7 mm in size. LUNG PARENCHYMA Emphysema: Only scant scant centrilobular emphysematous changes. Only question some minor interstitial coarsening which could reflect extremely early fibrotic changes but unimpressive. Negligible At this point Airways disease: Central airways upper normal thickness . No significant pleural findings nor lesions. . Mild Degenerative changes in the spine with degenerative disc space narrowing of the mid T-spine. OTHER ANATOMIC REGIONS Lymph Nodes: Numerous densely calcified hilar nodes reflecting granulomatous disease. These Most evident at left long. No significant hilar no mediastinal adenopathy otherwise. [id number] precarinal lymph node largest measuring 13.5 mm x 7.5 mm. Not of concern. Heart appears normal in size otherwise unremarkable. No significant coronary artery artery calcification. It minor mild atherosclerotic calcification at the lateral margin of the normal caliber aortic arch.. Uppermost abdomen unremarkable. Adrenals normal -------- IMPRESSION:--------- 1. Lung RADS Category: 1 Benign-appearing features.. Follow-up LDCT in 1 year adequate ... Scattered benign calcified granulomas throughout the lung. ... Only other change is Linear atelectasis, and possible linear scarring scarring mid right lung,, near course of minor fissure which has become apparent since a CTA chest from last week 02/26/2017.. Follow-up one year adequate here RECOMMENDATIONS:*12 month LDCT follow-up TECHNIQUE: The exam was performed on a [employer] [address] scanner using 3.0 mGy CTDI. A low dose helical CT CHEST was performed on a multi-detector scanner The LDCT was performed in a facility that meets the criteria for the screening program. Data regarding this exam was submitted to ACR which is an approved registry. The order for this exam indicates that it came as a result of a lung cancer screening counseling shard decision-making visit that included all the elements required of such a visit including smoking cessation. The radiologist interpreting this exam meets the CMS criteria for the LDCT lung cancer screening program. The exam is reported using the Lung-RADS classification scale and reported to the ACR registry. NOTE: This study was performed for the specific purposes of lung cancer screening and is not an alternative to diagnostic chest CT.
== END ==
PROVIDERS: PCP Emergency Medicine; Visit Provider Internal Medicine
DX: F17.210 Nicotine dependence, cigarettes, uncomplicated (principal)

== ENCOUNTER → 2017-07-18 10:10 | Outpatient (POV) | payer MEDICARE, BC, SELFPAY | PROVIDERS: Visit Provider Otolaryngology | DX: Z00.00 Encounter for general adult medical examination without abnormal findings (principal) ==

== ENCOUNTER → 2017-08-10 14:00 | Outpatient (CLI) | payer MEDICARE, BC, SELFPAY ==
[2017-08-10 15:01] VITALS: PULSE 70
[2017-08-10 15:20] VITALS: BP 103/71; PULSE 85; RESP 16; O2SAT 92
[2017-08-10 15:35] VITALS: BP 137/74; PULSE 118; RESP 26; O2SAT 93
== END ==
PROVIDERS: PCP Emergency Medicine; Visit Provider Internal Medicine
DX: R06.09 Other forms of dyspnea (principal); J42 Unspecified chronic bronchitis
CPT/HCPCS: 94060; 94618; 94640; 94726; 94729

== ENCOUNTER → 2017-10-10 13:17 | Outpatient (POV) | payer MEDICARE, BC, SELFPAY | PROVIDERS: PCP Emergency Medicine; Visit Provider Internal Medicine | DX: Z00.00 Encounter for general adult medical examination without abnormal findings (principal) ==

== ENCOUNTER → 2018-06-14 16:40 | Outpatient (CLI) | payer MEDICARE, BC, SELFPAY ==
[2018-06-14 17:28] LABS: Basophils # 0.1 K/mm3 (0-0.2); Basophils % 0.6 % (0.1-2.0); Eosinophils # 0.2 K/mm3 (0.0-0.4); Eosinophils % 2.2 % (0.1-12.0); Hematocrit 34.7 % (37.0-47.0); Hemoglobin 11.3 g/dL (12.2-16.2); Lymphocytes # 2.6 K/mm3 (0.7-4.5); Lymphocytes % 30.8 % (10-50); Mean Corpuscular HGB Conc 32.4 g/dL (31.8-35.4); Mean Corpuscular Hemoglobin 28.5 pg (27.0-31.2); Mean Corpuscular Volume 87.9 fl (81-99); Mean Platelet Volume 7.9 fl (7.4-10.4); Monocytes # 0.4 K/mm3 (0.1-1.0); Monocytes % 4.9 % (1.7-9.3); Neutrophils # 5.1 K/mm3 (1.8-7.8); Neutrophils % 61.6 % (37.0-80.0); Platelet Count 451 K/mm3 (142-424); Red Blood Count 3.95 M/mm3 (4.20-5.40); Red Cell Distribution Width 13.6 % (11.5-17.5); White Blood Count 8.4 K/mm3 (4.8-10.8)
[2018-06-14 19:34] LABS: Alanine Aminotransferase 31 U/L (12-78); Albumin Level 3.3 gm/dL (3.4-5.0); Albumin/Globulin Ratio 0.8 (1.1-1.8); Alkaline Phosphatase 84 U/L (46-116); Anion Gap 14.9 mEq/L (5-15); Aspartate Amino Transferase 18 U/L (15-37); Bilirubin,Total 0.3 mg/dL (0.2-1.0); Blood Urea Nitrogen 7 mg/dL (7-18); Carbon Dioxide 25 mmol/L (21.0-32.0); Chloride 106 mmol/L (98-107); Chol/HDL Ratio 5.8 (1-3.5); Cholesterol 185 mg/dL (140-200); Creatinine,Serum 0.81 mg/dL (0.55-1.02); Estimated Glomerular Filt Rate 72 ml/min (>60); Free T4 (Free Thyroxine) 1.17 ng/dl (0.76-1.46); GFR (African American) 87 ML/MIN (>60); Globulin 4.1 gm/dl (1.3-3.2); Glucose 96 mg/dL (74-106); HDL Cholesterol 32 mg/dL (29-89); LDL Cholesterol 110 mg/dL (0-130); Potassium 3.9 mmoL/L (3.5-5.1); Sodium 142 mmol/L (136-145); Thyroid Stimulating Hormone 0.76 uIU/ml (0.358-3.740); Total Protein,Serum 7.4 gm/dL (6.4-8.2); Triglycerides 215 mg/dL (30-200); VLDL Cholesterol 43 mg/dL (0-40)
[2018-06-16 20:40] LABS: Vitamin D 25 Hydroxy 29.4 ng/mL (30.0-100.0)
== END ==
PROVIDERS: Visit Provider Nurse Practitioner Family
DX: I10 Essential (primary) hypertension (principal); E55.9 Vitamin D deficiency, unspecified; F17.210 Nicotine dependence, cigarettes, uncomplicated
CPT/HCPCS: 80053; 80061; 82652; 84439; 84443; 85025

== ENCOUNTER 2018-07-26 11:21 | Inpatient (IN) ==
--- NOTE | 2018-07-26 11:28 | Emergency Department Note ---
ED Disposition Clinical Impression: Sick sinus syndrome, Syncope and collapse Disposition: Still a Patient Condition on Discharge: Serious Referrals: Luis Eckert MD [Primary Care Provider] - Time of Disposition: 11:59 - Critical Care Critical Care Time: No Attestation: On , the high probability of a clinically significant, sudden or life threatening deterioration of the following system(s) required my full and direct attention, intervention and personal management. The time I documented below is in addition to time spent performing reported procedures but includes the following listed in this critical care notation. Medical Decision Making - Medical Records Medical records reviewed: Yes: I reviewed the patient's medical records. - John Inquiry Pt receiving controlled substance: No John was queried for this patient: No Vital Signs: 07/26/18 11:31 Temperature 98.4 F Temperature Source Oral Pulse Rate [Right Radial] 75 Respiratory Rate 18 Blood Pressure [Right Arm] 110/49 L Blood Pressure Mean [Right Arm] 69 Blood Pressure Source [Right Arm] Automatic Cuff Blood Pressure Position [Right Arm] Sitting 02 Sat by Pulse Oximetry 96 Oxygen Delivery Method Room Air - Lab Data Lab results reviewed: Yes: I reviewed the patient's lab results. Lab Results 07/26/18 11:50: WBC 10.1, RBC 4.21, Hgb 11.2 L, Hct 36.3 L, MCV 86.3, MCH 26.6 L , MCHC 30.8 L, RDW 13.5, Plt Count 463 H, MPV 7.0 L, Neut % (Auto) 58.6, Lymph % (Auto) 34.4, [place] % (Auto) 5.0, Eos % (Auto) 1.5, Baso % (Auto) 0.6, Neut # (Auto) 5.9, Lymph # (Auto) 3.5, [place] # (Auto) 0.5, Eos # (Auto) 0.2, Baso # (Auto) 0.1 07/26/18 11:50: Sodium 139, Potassium 4.3, Chloride 103, Carbon Dioxide 29, Anion Gap 11.3, BUN 10, Creatinine 1.05 H, Estimated Creat Clear 85, Estimated GFR 53 L, Est GFR ( Amer) 64, Glucose 95, Calcium 9.5, Total Bilirubin 0.3, AST 22, ALT 30, Alkaline Phosphatase 91, Troponin I < 0.02, Total Protein 8.2, Albumin 3.3 L, Globulin 4.9 H, Albumin/Globulin Ratio 0.7 L Result diagrams: 07/26/18 11:50 07/26/18 11:50 Orders (Tests/Meds): ED MEDICATIONS Generic Name Dose Route Start Last Admin Trade Name Freq PRN Reason Stop Dose Admin Sodium Chloride 1,000 mls @ 999 mls/hr 07/26/18 13:10 07/26/18 13:11 Sod Chlor 0.9% 1000ml Bag IV 07/26/18 14:10 999 mls/hr .Q1H1M ONE Administration Discontinued Medications Generic Name Dose Route Start Last Admin Trade Name Freq PRN Reason Stop Dose Admin Sodium Chloride 1,000 mls @ 500 mls/hr 07/26/18 11:45 Sod Chlor 0.9% 1000ml Bag IV 07/26/18 13:44 .Q2H HAROLDO ORDERS Category Date Time Status Consult to Cardiology [CONS] Routine Cons 07/26/18 11:38 Active - ECG Data Tracing #1 normal, though displayed marked sri on monitor... Cards came to see her immediately ECG initial impression date: 07/26/18 ECG initial impression time: 11:55 ECG normal with no acute: arrhythmias, ischemia, conduction abnormalities, chamber hypertrophy Normal Sinus Rhythm: Yes - Physician Consults Physician Consulted: ana laura/alec Time: 11:30 Comment/Response: loop recorder was interrogated. 8 second pauses. Needs pacemaker General Adult HPI - General Stated complaint: fainted and hit head Time Seen by Provider: 07/26/18 11:26 Mode of Arrival: Ambulatory Source of Information: Patient Limitations: No Limitations - History of Present Illness HPI narrative: syncope reported - Related Data Home Medications Medication Instructions Recorded Confirmed Black Cohosh 40 mg PO DAILY 02/27/17 07/26/18 Calcium Carbonate 1,200 mg PO DAILY 02/27/17 07/26/18 Previous Rx's Medication Instructions Recorded fluticasone propionate 50 1 spray INTRANASAL DAILY #9.9 g 06/14/18 mcg/actuation nasal spray,suspension lisinopril 5 mg tablet 5 mg PO DAILY #90 tab 06/14/18 lovastatin 10 mg tablet 10 mg PO HS #90 tab 06/14/18 meclizine 25 mg tablet 25 mg PO TID #90 tab 06/14/18 pantoprazole 40 mg tablet,delayed 40 mg PO DAILY #90 tab 06/14/18 release Promethazine HCl [Phenergan 25mg 25 mg PO Q6H PRN #20 tab 07/11/18 tab] metoprolol succinate ER 50 mg 50 mg PO .Night #30 tab 07/26/18 tablet,extended release 24 hr Allergies Allergy/AdvReac Type Severity Reaction Status Date / Time latex [LATEX] Allergy Intermediate I-RASH Verified 07/26/18 10:21 codeine [CODEINE] Allergy Mild NA-NAUSEA, Verified 07/26/18 10:21 CHEST PRESSURE tuberculin,PPD,multi-puncture Allergy Mild POSITIVE Verified 07/26/18 10:21 [TUBERCULIN,PPD,MULTI-PUNCTURE] REACTOR sulfamethoxazole Allergy Unknown RASH,VOMITI Verified 07/26/18 10:21 [From BACTRIM] NG trimethoprim [From BACTRIM] Allergy Unknown Verified 07/26/18 10:21 [facility] History - Hepatitis A Screen Attestation statement:: This patient has been screened for Hepatitis A risk factors. I have reviewed the patient's past medical history: Yes Medical History: Reports:: Atrial Fibrillation, Chronic Obstructive Pulmonary Disease (COPD), Gastroesophageal Reflux Disease(GERD), Hyperlipidemia, Hypertension Denies:: Cancer, Diabetes Mellitus Type 1, Diabetes Mellitus Type 2, Internal Pacemaker, Lung Disease, MRSA, Seizures Laterality Cases: Other Surgeries: Yes: Colonoscopy, Hysterectomy-Total, Tubal Ligation, Other. No: Pacemaker Amputation: No Fractures: Yes (ORIF left wrist) Comment: loop recorder placement, 2019 - Social History Smoking Status: Current every day smoker Tobacco Type: cigarettes # Packs/Day (cigarettes): 1 Alcohol Intake: never Alcohol Intake Frequency:: other Substance Use Type: denies use Occupational Status: other Housing: house Household Members: spouse Family Hx:: Coronary Artery Disease ROS Obtained: Yes All systems reviewed & no additional complaints - Constitutional Constitutional: Denies fever(s) - Eyes Eyes: Reports blurry vision, Reports change in vision - Cardiovascular Cardiovascular: Denies chest pain, Denies chest pain at rest, Denies diaphoresis, Denies dyspnea, Reports lightheadedness - Respiratory Respiratory: No chest congestion, No cough, No dyspnea - Gastrointestinal Gastrointestingal: Denies: abdominal pain - Musculoskeletal Musculoskeletal: Denies joint pain, Denies joint stiffness, Denies joint swelling - Integumentary/Breasts Skin/Breast: Denies rash, Denies skin pain - Neurologic Neurologic: Denies abnormal gait, Denies numbness, Denies tingling/numbness/burning sensations, Reports syncope, Denies vertigo - Hematologic/Lymphatic Henatologic/Lymphatic: Denies easy bleeding Physical Exam - General General appearance: alert, in no apparent distress - Head Head exam: atraumatic, normocephalic, normal inspection - Eye Eye exam: Present: normal appearance, PERRL, EOMI - ENT ENT exam: Present: normal exam, normal oropharynx, mucous membranes moist, TM's normal bilaterally, normal external ear exam - Neck Neck exam: Present: normal inspection, full ROM, trachea midline. Absent: meningismus, lymphadenopathy - Chest Chest inspection: Present: normal inspection, symmetric chest wall rise. Absent: tenderness - Respiratory Respiratory exam: Present: normal lung sounds bilaterally. Absent: respiratory distress - Cardiovascular Cardiovascular exam: Present: regular rate, normal rhythm. Absent: JVD - Abdominal Exam Abdominal exam: Present: soft, normal bowel sounds. Absent: distention, tenderness, guarding - Extremities Exam Extremities exam: Present: normal inspection, full ROM, normal capillary refill. Absent: calf tenderness - Back Exam Back exam: Present: normal inspection - Neurological Exam Neurological exam: Present: alert, oriented X3, CN II-XII intact - Psychiatric Psychiatric exam: Present: normal affect, normal mood - Skin Skin exam: Present: warm, dry, intact, normal color
[2018-07-26 12:12] LABS: Basophils # 0.1 K/mm3 (0-0.2); Basophils % 0.6 % (0.1-2.0); Eosinophils # 0.2 K/mm3 (0.0-0.4); Eosinophils % 1.5 % (0.1-12.0); Hematocrit 36.3 % (37.0-47.0); Hemoglobin 11.2 g/dL (12.2-16.2); Lymphocytes # 3.5 K/mm3 (0.7-4.5); Lymphocytes % 34.4 % (10-50); Mean Corpuscular HGB Conc 30.8 g/dL (31.8-35.4); Mean Corpuscular Volume 86.3 fl (81-99); Monocytes # 0.5 K/mm3 (0.1-1.0); Neutrophils # 5.9 K/mm3 (1.8-7.8); Neutrophils % 58.6 % (37.0-80.0); Platelet Count 463 K/mm3 (142-424); Red Blood Count 4.21 M/mm3 (4.20-5.40); Red Cell Distribution Width 13.5 % (11.5-17.5); White Blood Count 10.1 K/mm3 (4.8-10.8)
[2018-07-26 12:26] LABS: Alanine Aminotransferase 30 U/L (12-78); Albumin Level 3.3 gm/dL (3.4-5.0); Albumin/Globulin Ratio 0.7 (1.1-1.8); Alkaline Phosphatase 91 U/L (46-116); Anion Gap 11.3 mEq/L (5-15); Aspartate Amino Transferase 22 U/L (15-37); Bilirubin,Total 0.3 mg/dL (0.2-1.0); Blood Urea Nitrogen 10 mg/dL (7-18); Calcium 9.5 mg/dL (8.5-10.1); Carbon Dioxide 29 mmol/L (21.0-32.0); Chloride 103 mmol/L (98-107); Globulin 4.9 gm/dl (1.3-3.2); Glucose 95 mg/dL (74-106); Sodium 139 mmol/L (136-145); Total Protein,Serum 8.2 gm/dL (6.4-8.2)
--- NOTE | 2018-07-26 13:09 | Consult Report ---
History of Present Illness Consult date: 07/26/18 Requesting physician: Luis Eckert Chief complaint: Syncope Additional Medical History:: 1. Hypertension A. Echo, 02/2017, difficult study, mild LAE, normal LV size with mild concentric LVH and LVEF of 55% without regional wall motion abnormality. Aortic valve minimally thickened and fibrosed, mitral and tricuspid valve normal, pulmonic valve poorly visualized with RVSP of 38 mmHg. No significant pe ricardial effusion. 2. Hyperlipidemia 3. Coronary artery disease A. Left heart catheterization, 02/2017 for progressive angina ANGIOGRAPHIC RESULTS: 1. The left main artery normal 2. The left anterior descending artery proximally and mid vessel is normal 3. The circumflex artery is a dominant vessel and has mid vessel 20 and 30% nonflow limiting stenoses 4. The right coronary artery is a nondominant yet still large vessel and has a mid vessel smooth 20-30% stenosis 5. The PHAM ventriculogram reveals hyperdynamic at 70% 6. The left ventricular end-diastolic pressure moderately to severely elevated at 30 mmHg IMPRESSION: 1. Mild nonflow limiting coronary artery disease 2. Slightly hyperdynamic ventricle consistent with hypertensive heart disea se 3. Moderate to severely elevated LVEDP consistent with moderate to severe diastolic dysfunction PLAN: 1. Patient is a low risk from a cardiac standpoint to proceed with cholecystectomy 2. Patient's dyspnea stems from diastolic heart failure therefore she would benefit from negative inotropes such as diltiazem or verapamil combined with beta blockers. 3. Diuretics would also benefit patient's dyspnea by decreasing EDP 4. Risk factor modification 4. History of palpitations/tachycardia A. Medtronic loop recorder previously showing episodes of PVCs 5. Syncope with ILR interrogation showing pauses up to 9 seconds, 07/2018 6. Tobacco use/COPD History of present illness: 62-year-old white female with history as noted above was seen in the office earlier today. Patient had complained of palpitations and weakness for which she was on beta-lonny therapy. Symptoms had persisted despite carvedilol therapy and it was elected to try and switch her to metoprolol therapy today. After the patient left the office she went to the pharmacy to obtain the new medication and passed out. She had symptoms of weakness and ringing in her ears prior to passing out. She did not suffer any lacerations. She was brought to the ER for further evaluation. Interrogation of her Medtronic loop recorder showed several episodes of pauses in the last couple of weeks up to 9 seconds, including today. Pt has a home transmitter but the device has not been connected to the system since her last download in 07/06/2018. Patient will be admitted with plans for permanent pacemaker insertion tomorrow. Beta-lonny therapy will be held. [facility] History Medical History: Reports:: Atrial Fibrillation, Chronic Obstructive Pulmonary Disease (COPD), Gastroesophageal Reflux Disease(GERD), Hyperlipidemia, Hypertension Denies:: Cancer, Diabetes Mellitus Type 1, Diabetes Mellitus Type 2, Internal Pacemaker, Lung Disease, MRSA, Seizures *Have you ever received a pneumonia vaccine?: Yes *Have you received a flu vaccine this season?: Yes Laterality Cases: Left: Other Other Surgeries: Yes: Colonoscopy, Hysterectomy-Total, Tubal Ligation, Other. No: Pacemaker Amputation: No Fractures: Yes (ORIF left wrist) - *Social History Smoking Status: Current every day smoker Tobacco Type: cigarettes # Packs/Day (cigarettes): 1 Alcohol Intake: never Alcohol Intake Frequency:: other Substance Use Type: denies use *Occupational Status:: other Housing: house Household Members: spouse *Travel in the last 8 weeks: None - Psychiatric History Expresses thoughts of harming self/others: None Suicide Plan Description: No Plan Family Hx:: Coronary Artery Disease Meds Home Medications Medication Instructions Recorded Confirmed Type Black Cohosh 40 mg PO DAILY 02/27/17 07/26/18 History Calcium Carbonate 1,200 mg PO DAILY 02/27/17 07/26/18 History fluticasone propionate 50 1 spray INTRANASAL DAILY #9.9 g 06/14/18 07/26/18 Rx mcg/actuation nasal spray,suspension lisinopril 5 mg tablet 5 mg PO DAILY #90 tab 06/14/18 07/26/18 Rx lovastatin 10 mg tablet 10 mg PO HS #90 tab 06/14/18 07/26/18 Rx meclizine 25 mg tablet 25 mg PO TID #90 tab 06/14/18 07/26/18 Rx pantoprazole 40 mg tablet,delayed 40 mg PO DAILY #90 tab 06/14/18 07/26/18 Rx release Promethazine HCl [Phenergan 25mg 25 mg PO Q6H PRN #20 tab 07/11/18 07/26/18 Rx tab] metoprolol succinate ER 50 mg 50 mg PO .Night #30 tab 07/26/18 07/26/18 Rx tablet,extended release 24 hr Allergies Allergy/AdvReac Type Severity Reaction Status Date / Time latex [LATEX] Allergy Intermediate I-RASH Verified 07/26/18 10:21 codeine [CODEINE] Allergy Mild NA-NAUSEA, Verified 07/26/18 10:21 CHEST PRESSURE tuberculin,PPD,multi-puncture Allergy Mild POSITIVE Verified 07/26/18 10:21 [TUBERCULIN,PPD,MULTI-PUNCTURE] REACTOR sulfamethoxazole Allergy Unknown RASH,VOMITI Verified 07/26/18 10:21 [From BACTRIM] NG trimethoprim [From BACTRIM] Allergy Unknown Verified 07/26/18 10:21 Review of Systems - *Cardiovascular Reports fainting, Denies chest pain, Denies shortness of breath with activity - *Respiratory Denies shortness of breath, Denies shortness of breath with activity - *Gastrointestinal Denies abdominal pain, Denies nausea, Denies vomiting - *Genitourinary Denies blood in urine - *Musculoskeletal Denies joint pain, Denies back pain - *Neurologic Reports dizziness, Reports fainting, Reports weakness Exam Vital signs and Labs for Last 24 Hours: Temp Pulse Resp BP Pulse Ox 98.4 F 75 18 110/49 L 96 07/26/18 11:31 07/26/18 11:31 07/26/18 11:31 07/26/18 11:31 07/26/18 11:31 Laboratory Results - last 24 hr 07/26/18 11:50: WBC 10.1, RBC 4.21, Hgb 11.2 L, Hct 36.3 L, MCV 86.3, MCH 26.6 L , MCHC 30.8 L, RDW 13.5, Plt Count 463 H, MPV 7.0 L, Neut % (Auto) 58.6, Lymph % (Auto) 34.4, [place] % (Auto) 5.0, Eos % (Auto) 1.5, Baso % (Auto) 0.6, Neut # (Auto) 5.9, Lymph # (Auto) 3.5, [place] # (Auto) 0.5, Eos # (Auto) 0.2, Baso # (Auto) 0.1 07/26/18 11:50: Sodium 139, Potassium 4.3, Chloride 103, Carbon Dioxide 29, Anion Gap 11.3, BUN 10, Creatinine 1.05 H, Estimated Creat Clear 85, Estimated GFR 53 L, Est GFR ( Amer) 64, Glucose 95, Calcium 9.5, Total Bilirubin 0.3, AST 22, ALT 30, Alkaline Phosphatase 91, Troponin I < 0.02, Total Protein 8.2, Albumin 3.3 L, Globulin 4.9 H, Albumin/Globulin Ratio 0.7 L I & O for Last 24 hours: Intake & Output 07/24/18 07/25/18 07/26/18 07/27/18 11:59 11:59 11:59 11:59 Weight 211 lb - *Routine HEENT Exam Head: Present: normocephalic Eye: Present: EOMI, PERRL ENT: Present: mucous membranes moist - *Routine Neck Exam Present: supple. Absent: JVD, carotid bruit - *Routine Respiratory Exam Present: CTA bilaterally. Absent: accessory muscle use, rales, rhonchi, wheezes - *Routine Cardiovascular Exam Present: RRR. Absent: murmur, gallop, rubs - *Routine Abdominal Exam Present: soft. Absent: tenderness, distended, guarding - *Routine Extremities Exam Absent: edema, calf tenderness - *Routine Neurological Exam Present: alert, oriented X3, moving all extremities Assessment and Plan (1) Sick sinus syndrome Current visit: Yes Status: Acute Category: Medical Code(s): I49.5 - Sick sinus syndrome (2) Syncope and collapse Current visit: Yes Status: Acute Category: Medical Code(s): R55 - Syncope and collapse (3) Hyperlipidemia Current visit: No Status: Chronic Qualifiers: Hyperlipidemia type: mixed hyperlipidemia Qualified Code(s): E78.2 - Mixed hyperlipidemia Category: Medical Code(s): E78.5 - Hyperlipidemia, unspecified (4) Hypertension Current visit: No Status: Chronic Qualifiers: Hypertension type: essential hypertension Qualified Code(s): I10 - Essential (primary) hypertension Category: Medical Code(s): I10 - Essential (primary) hypertension (5) Tobacco use Current visit: No Status: Chronic Category: Medical Code(s): Z72.0 - Tobacco use - Assessment and plan all Dx Assessment and Plan for all problems:: 1. Hold beta-lonny for now with plans to reinstitute after pacer insertion due to palpitations and history of tachycardia (?paroxysmal atrial fibrillation) 2. Plan for permanent pacemaker insertion tomorrow or sooner if needed. 3. Recommend bed rest and PRN atropine or dobutamine gtt for sustained bradycardia/recurrent pauses.
--- NOTE | 2018-07-26 20:02 | History & Physical Report ---
*Admission Date: 07/26/18 *Chief complaint: syncope *History of present illness: this pt presented to the ed -pt had syncopal episode - and had loop recorder which showed significant pauses and pt will need pacemaker and was admitted pt was seen by card 2-year-old white female with history as noted above was seen in the office earlier today. Patient had complained of palpitations and weakness for which she was on beta-lonny therapy. Symptoms had persisted despite carvedilol therapy and it was elected to try and switch her to metoprolol therapy today. After the patient left the office she went to the pharmacy to obtain the new medication and passed out. She had symptoms of weakness and ringing in her ears prior to passing out. She did not suffer any lacerations. She was brought to the ER for further evaluation. Interrogation of her Medtronic loop recorder showed several episodes of pauses in the last couple of weeks up to 9 seconds, including today. Pt has a home transmitter but the device has not been connected to the system since her last download in 07/06/2018. Patient will be admitted with plans for permanent pacemaker insertion tomorrow. Beta-lonny therapy will be held. [facility] History I have reviewed the patient's past medical history: Yes Medical History: Reports:: Atrial Fibrillation, Chronic Obstructive Pulmonary Disease (COPD), Gastroesophageal Reflux Disease(GERD), Hyperlipidemia, Hypertension Denies:: Cancer, Diabetes Mellitus Type 1, Diabetes Mellitus Type 2, Internal Pacemaker, Lung Disease, MRSA, Seizures *Have you ever received a pneumonia vaccine?: Yes *Have you received a flu vaccine this season?: Yes Other Medical History: Reports: Arthritis Laterality Cases: Left: Other Other Surgeries: Yes: Colonoscopy, Hysterectomy-Total, Tubal Ligation, Other. No: Pacemaker Amputation: No Fractures: Yes (ORIF left wrist) - *Social History Educational Level: Attended High School Smoking Status: Current every day smoker Tobacco Type: cigarettes # Packs/Day (cigarettes): 2 Alcohol Intake: never Alcohol Intake Frequency:: other Substance Use Type: denies use *Occupational Status:: disabled Housing: house Household Members: spouse *Travel in the last 8 weeks: None - Psychiatric History Expresses thoughts of harming self/others: None Suicide Plan Description: No Plan Family Hx:: Cancer, Diabetes, Heart Attack, Hypertension Review of Systems - Review of Systems Review of systems:: pertinent systems reviewed and negative unless documented below - Constitutional Denies fever(s) - Eyes Denies change in vision - ENT Denies sore throat - *Cardiovascular Reports slow heart rate, Reports other (syncope), Denies chest pain at rest - *Respiratory Denies cough - *Gastrointestinal Denies abdominal pain - *Genitourinary Denies blood in urine - *Musculoskeletal Denies joint pain - Integumentary/Breasts Denies rash - *Neurologic Reports dizziness, Reports fainting, Reports weakness, Denies abnormal walking, Denies numbness, Denies tingling/numbness/burning sensations, Denies dizziness - Psychiatric Denies anxiety Meds Home Medications Medication Instructions Recorded Confirmed Type Black Cohosh 40 mg PO DAILY 02/27/17 07/26/18 History Calcium Carbonate 1,200 mg PO DAILY 02/27/17 07/26/18 History fluticasone propionate 50 1 spray INTRANASAL DAILY #9.9 g 06/14/18 07/26/18 Rx mcg/actuation nasal spray,suspension lisinopril 5 mg tablet 5 mg PO DAILY #90 tab 06/14/18 07/26/18 Rx lovastatin 10 mg tablet 10 mg PO HS #90 tab 06/14/18 07/26/18 Rx meclizine 25 mg tablet 25 mg PO TID #90 tab 06/14/18 07/26/18 Rx pantoprazole 40 mg tablet,delayed 40 mg PO DAILY #90 tab 06/14/18 07/26/18 Rx release Promethazine HCl [Phenergan 25mg 25 mg PO Q6H PRN #20 tab 07/11/18 07/26/18 Rx tab] metoprolol succinate ER 50 mg 50 mg PO .Night #30 tab 07/26/18 07/26/18 Rx tablet,extended release 24 hr Allergies Allergy/AdvReac Type Severity Reaction Status Date / Time latex [LATEX] Allergy Intermediate I-RASH Verified 07/26/18 10:21 codeine [CODEINE] Allergy Mild NA-NAUSEA, Verified 07/26/18 10:21 CHEST PRESSURE tuberculin,PPD,multi-puncture Allergy Mild POSITIVE Verified 07/26/18 10:21 [TUBERCULIN,PPD,MULTI-PUNCTURE] REACTOR sulfamethoxazole Allergy Unknown RASH,VOMITI Verified 07/26/18 10:21 [From BACTRIM] NG trimethoprim [From BACTRIM] Allergy Unknown Verified 07/26/18 10:21 Exam Vital signs and Labs for Last 24 Hours: Temp Pulse Resp BP Pulse Ox 98.2 F 67 18 96/46 L 96 07/26/18 15:14 07/26/18 19:58 07/26/18 19:00 07/26/18 19:00 07/26/18 19:58 Laboratory Results - last 24 hr 07/26/18 11:50: WBC 10.1, RBC 4.21, Hgb 11.2 L, Hct 36.3 L, MCV 86.3, MCH 26.6 L , MCHC 30.8 L, RDW 13.5, Plt Count 463 H, MPV 7.0 L, Neut % (Auto) 58.6, Lymph % (Auto) 34.4, [place] % (Auto) 5.0, Eos % (Auto) 1.5, Baso % (Auto) 0.6, Neut # (Auto) 5.9, Lymph # (Auto) 3.5, [place] # (Auto) 0.5, Eos # (Auto) 0.2, Baso # (Auto) 0.1 07/26/18 11:50: Sodium 139, Potassium 4.3, Chloride 103, Carbon Dioxide 29, Anion Gap 11.3, BUN 10, Creatinine 1.05 H, Estimated Creat Clear 85, Estimated GFR 53 L, Est GFR ( Amer) 64, Glucose 95, Calcium 9.5, Total Bilirubin 0.3, AST 22, ALT 30, Alkaline Phosphatase 91, Troponin I < 0.02, Total Protein 8.2, Albumin 3.3 L, Globulin 4.9 H, Albumin/Globulin Ratio 0.7 L 07/26/18 14:21: Troponin I < 0.02 07/26/18 16:55: Troponin I < 0.02 I & O for Last 24 hours: Intake & Output 07/24/18 07/25/18 07/26/18 07/27/18 11:59 11:59 11:59 11:59 Intake Total 240 / 240 Balance 240 / 240 Weight 211 lb 215 lb 4 oz - Constitutional no acute distress, obese - *Routine HEENT Exam Head: Present: normocephalic Eye: Present: EOMI, PERRL ENT: Present: mucous membranes dry - *Routine Neck Exam Absent: JVD - *Routine Respiratory Exam Present: CTA bilaterally - *Routine Cardiovascular Exam Present: RRR, murmur - *Routine Abdominal Exam Present: soft - *Routine Extremities Exam Absent: calf tenderness - *Routine Skin Exam Present: intact - *Routine Neurological Exam Present: alert, oriented X3, CN II-XII intact - Routine Psychiatric Exam Present: normal affect Assessment and Plan (1) Sick sinus syndrome Current visit: Yes Status: Acute Category: Medical Code(s): I49.5 - Sick sinus syndrome (2) Syncope and collapse Current visit: Yes Status: Acute Category: Medical Code(s): R55 - Syncope and collapse (3) Hyperlipidemia Current visit: No Status: Chronic Qualifiers: Hyperlipidemia type: mixed hyperlipidemia Qualified Code(s): E78.2 - Mixed hyperlipidemia Category: Medical Code(s): E78.5 - Hyperlipidemia, unspecified (4) Hypertension Current visit: No Status: Chronic Qualifiers: Hypertension type: essential hypertension Qualified Code(s): I10 - Essential (primary) hypertension Category: Medical Code(s): I10 - Essential (primary) hypertension (5) Tobacco use Current visit: No Status: Chronic Category: Medical Code(s): Z72.0 - Tobacco use (6) Obesity (BMI 30-39.9) Current visit: Yes Status: Acute Category: Medical Code(s): E66.9 - Obesity, unspecified (7) Anemia Current visit: Yes Status: Acute Qualifiers: Anemia type: unspecified type Qualified Code(s): D64.9 - Anemia, unspecified Category: Medical Code(s): D64.9 - Anemia, unspecified
[2018-07-27 06:11] LABS: Anion Gap 8.7 mEq/L (5-15); Calcium 8.7 mg/dL (8.5-10.1)
[2018-07-27 06:13] LABS: Basophils % 0.4 % (0.1-2.0); Eosinophils # 0.1 K/mm3 (0.0-0.4); Eosinophils % 1.4 % (0.1-12.0); Hematocrit 32.4 % (37.0-47.0); Lymphocytes # 2.3 K/mm3 (0.7-4.5); Mean Corpuscular HGB Conc 30.2 g/dL (31.8-35.4); Mean Corpuscular Volume 87.8 fl (81-99); Mean Platelet Volume 7.1 fl (7.4-10.4); Monocytes # 0.3 K/mm3 (0.1-1.0); Monocytes % 4.3 % (1.7-9.3); Neutrophils # 4.6 K/mm3 (1.8-7.8); Platelet Count 369 K/mm3 (142-424); Red Blood Count 3.69 M/mm3 (4.20-5.40); Red Cell Distribution Width 13.5 % (11.5-17.5); White Blood Count 7.3 K/mm3 (4.8-10.8)
[2018-07-27 06:23] LABS: Hemoglobin 9.8 g/dL (12.2-16.2)
--- NOTE | 2018-07-27 07:41 | Pharmacy Consult Notes ---
[facility] Pharmacy VTE Monitoring - Patient Demographics Admission date: 07/26/18 Report Date: 07/27/18 Time: 07:40 Allergies/Adverse Reactions: Patient Allergies latex [LATEX] Allergy (Intermediate, Verified 07/26/18 10:21) I-RASH codeine [CODEINE] Allergy (Mild, Verified 07/26/18 10:21) NA-NAUSEA, CHEST PRESSURE tuberculin,PPD,multi-puncture [TUBERCULIN,PPD,MULTI-PUNCTURE] Allergy (Mild, Verified 07/26/18 10:21) POSITIVE REACTOR sulfamethoxazole [From BACTRIM] Allergy (Unknown, Verified 07/26/18 10:21) RASH,VOMITING trimethoprim [From BACTRIM] Allergy (Unknown, Verified 07/26/18 10:21) Height: 1.63 m Weight: 98.004 kg Patient Problems: Current Active Problems (Updated 07/26/18 @ 13:12 by PARI Pham) Sick sinus syndrome (Acute) Syncope and collapse (Acute) - VTE Risk Labs: VTE Related Lab Results Hgb 9.8 g/dL (12.2-16.2) L D 07/27/18 05:36 Hct 32.4 % (37.0-47.0) L 07/27/18 05:36 Plt Count 369 K/mm3 (142-424) 07/27/18 05:36 BUN 8 mg/dL (7-18) 07/27/18 05:36 Creatinine 0.89 mg/dL (0.55-1.02) 07/27/18 05:36 Estimated Creat Clear 91 mL/min (50-200) 07/27/18 05:36 Was VTE Risk Assessment Performed: Yes VTE Score: 4 VTE Risk Level: Low Risk Clinical Trial Participant: No - Prophylaxis VTE Prophylaxis Ordered?: Yes Types of VTE Prophylaxis: TEDS Knee High Location of Applied Device: Bilateral Lower Extremeties
--- NOTE | 2018-07-27 08:40 | Progress Note ---
Internal Medicine - PN: Subj *Date: 07/27/18 *Time: 08:39 Interval history: doing ok and will have pacemaker today Exam Vital signs and Labs for Last 24 Hours: Temp Pulse Resp BP Pulse Ox 97.9 F 65 20 108/40 L 97 07/27/18 07:59 07/27/18 07:00 07/27/18 07:00 07/27/18 07:00 07/27/18 07:00 Laboratory Results - last 24 hr 07/26/18 11:50: WBC 10.1, RBC 4.21, Hgb 11.2 L, Hct 36.3 L, MCV 86.3, MCH 26.6 L , MCHC 30.8 L, RDW 13.5, Plt Count 463 H, MPV 7.0 L, Neut % (Auto) 58.6, Lymph % (Auto) 34.4, [place] % (Auto) 5.0, Eos % (Auto) 1.5, Baso % (Auto) 0.6, Neut # (Auto) 5.9, Lymph # (Auto) 3.5, [place] # (Auto) 0.5, Eos # (Auto) 0.2, Baso # (Auto) 0.1 07/26/18 11:50: Sodium 139, Potassium 4.3, Chloride 103, Carbon Dioxide 29, Anion Gap 11.3, BUN 10, Creatinine 1.05 H, Estimated Creat Clear 85, Estimated GFR 53 L, Est GFR ( Amer) 64, Glucose 95, Calcium 9.5, Total Bilirubin 0.3, AST 22, ALT 30, Alkaline Phosphatase 91, Troponin I < 0.02, Total Protein 8.2, Albumin 3.3 L, Globulin 4.9 H, Albumin/Globulin Ratio 0.7 L 07/26/18 14:21: Troponin I < 0.02 07/26/18 16:55: Troponin I < 0.02 07/27/18 05:36: WBC 7.3 D, RBC 3.69 L, Hgb 9.8 L D, Hct 32.4 L, MCV 87.8, MCH 26.5 L, MCHC 30.2 L, RDW 13.5, Plt Count 369, MPV 7.1 L, Neut % (Auto) 63.0, Lymph % (Auto) 31.0, [place] % (Auto) 4.3, Eos % (Auto) 1.4, Baso % (Auto) 0.4, Neut # (Auto) 4.6, Lymph # (Auto) 2.3, [place] # (Auto) 0.3, Eos # (Auto) 0.1, Baso # (Auto) 0.0 07/27/18 05:36: Sodium 144, Potassium 3.7, Chloride 110 H, Carbon Dioxide 29, Anion Gap 8.7, BUN 8, Creatinine 0.89, Estimated Creat Clear 91, Estimated GFR 64, Est GFR ( Amer) 78 D, Glucose 94, Calcium 8.7 I & O for Last 24 hours: Intake & Output 07/24/18 07/25/18 07/26/18 07/27/18 11:59 11:59 11:59 11:59 Intake Total 2339 / 2339 Output Total 650 / 650 Balance 1689 / 1689 Weight 211 lb 216 lb 1 oz - Constitutional no acute distress - *Routine HEENT Exam Head: Present: normocephalic Eye: Present: EOMI, PERRL ENT: Present: mucous membranes dry - *Routine Neck Exam Absent: JVD - *Routine Respiratory Exam Absent: respiratory distress - *Routine Cardiovascular Exam Present: bradycardia - *Routine Abdominal Exam Present: soft - *Routine Extremities Exam Absent: edema - *Routine Skin Exam Present: intact - *Routine Neurological Exam Present: alert - Routine Psychiatric Exam Present: normal affect Assessment and Plan (1) Sick sinus syndrome Current visit: Yes Status: Acute Category: Medical Code(s): I49.5 - Sick sinus syndrome (2) Syncope and collapse Current visit: Yes Status: Acute Category: Medical Code(s): R55 - Syncope and collapse (3) Hyperlipidemia Current visit: No Status: Chronic Qualifiers: Hyperlipidemia type: mixed hyperlipidemia Qualified Code(s): E78.2 - Mixed hyperlipidemia Category: Medical Code(s): E78.5 - Hyperlipidemia, unspecified (4) Hypertension Current visit: No Status: Chronic Qualifiers: Hypertension type: essential hypertension Qualified Code(s): I10 - Essential (primary) hypertension Category: Medical Code(s): I10 - Essential (primary) hypertension (5) Tobacco use Current visit: No Status: Chronic Category: Medical Code(s): Z72.0 - Tobacco use (6) Obesity (BMI 30-39.9) Current visit: Yes Status: Acute Category: Medical Code(s): E66.9 - Obesity, unspecified (7) Anemia Current visit: Yes Status: Acute Qualifiers: Anemia type: unspecified type Qualified Code(s): D64.9 - Anemia, unspecified Category: Medical Code(s): D64.9 - Anemia, unspecified
--- NOTE | 2018-07-27 08:55 | Progress Note ---
Subjective Date: 07/27/18 Time: 08:51 Principal diagnosis: SSS, Syncope Interval history: 62 yo WF in bed in NAD. No chest pain, pressure or tightness. Telemetry shows sinus rhythm with near 3 second episode of complete heart block. Pt was asymptomatic Exam Vital signs and Labs for Last 24 Hours: Temp Pulse Resp BP Pulse Ox 97.9 F 65 20 108/40 L 97 07/27/18 07:59 07/27/18 07:00 07/27/18 07:00 07/27/18 07:00 07/27/18 07:00 Laboratory Results - last 24 hr 07/26/18 11:50: WBC 10.1, RBC 4.21, Hgb 11.2 L, Hct 36.3 L, MCV 86.3, MCH 26.6 L , MCHC 30.8 L, RDW 13.5, Plt Count 463 H, MPV 7.0 L, Neut % (Auto) 58.6, Lymph % (Auto) 34.4, [place] % (Auto) 5.0, Eos % (Auto) 1.5, Baso % (Auto) 0.6, Neut # (Auto) 5.9, Lymph # (Auto) 3.5, [place] # (Auto) 0.5, Eos # (Auto) 0.2, Baso # (Auto) 0.1 07/26/18 11:50: Sodium 139, Potassium 4.3, Chloride 103, Carbon Dioxide 29, Anion Gap 11.3, BUN 10, Creatinine 1.05 H, Estimated Creat Clear 85, Estimated GFR 53 L, Est GFR ( Amer) 64, Glucose 95, Calcium 9.5, Total Bilirubin 0.3, AST 22, ALT 30, Alkaline Phosphatase 91, Troponin I < 0.02, Total Protein 8.2, Albumin 3.3 L, Globulin 4.9 H, Albumin/Globulin Ratio 0.7 L 07/26/18 14:21: Troponin I < 0.02 07/26/18 16:55: Troponin I < 0.02 07/27/18 05:36: WBC 7.3 D, RBC 3.69 L, Hgb 9.8 L D, Hct 32.4 L, MCV 87.8, MCH 26.5 L, MCHC 30.2 L, RDW 13.5, Plt Count 369, MPV 7.1 L, Neut % (Auto) 63.0, Lymph % (Auto) 31.0, [place] % (Auto) 4.3, Eos % (Auto) 1.4, Baso % (Auto) 0.4, Neut # (Auto) 4.6, Lymph # (Auto) 2.3, [place] # (Auto) 0.3, Eos # (Auto) 0.1, Baso # (Auto) 0.0 07/27/18 05:36: Sodium 144, Potassium 3.7, Chloride 110 H, Carbon Dioxide 29, Anion Gap 8.7, BUN 8, Creatinine 0.89, Estimated Creat Clear 91, Estimated GFR 64, Est GFR ( Amer) 78 D, Glucose 94, Calcium 8.7 I & O for Last 24 hours: Intake & Output 07/24/18 07/25/18 07/26/18 07/27/18 11:59 11:59 11:59 11:59 Intake Total 2339 / 2339 Output Total 650 / 650 Balance 1689 / 1689 Weight 211 lb 216 lb 1 oz - *Routine Respiratory Exam Present: CTA bilaterally. Absent: accessory muscle use, rales, rhonchi, wheezes - *Routine Cardiovascular Exam Present: RRR. Absent: murmur, gallop, rubs - *Routine Neurological Exam Present: alert, oriented X3, moving all extremities Progress Note: A&P (1) Sick sinus syndrome Status: Acute Current Visit: Yes (2) Syncope and collapse Status: Acute Current Visit: Yes (3) Hyperlipidemia Status: Chronic Current Visit: No (4) Hypertension Status: Chronic Current Visit: No (5) Tobacco use Status: Chronic Current Visit: No (6) Obesity (BMI 30-39.9) Status: Acute Current Visit: Yes (7) Anemia Status: Acute Current Visit: Yes Assessment and Plan for All Diagnoses:: Dual chamber placement today. Restart metoprolol succinate XL 50 mg daily after pacer implanted for history of tachyarrhythmias. Possible discharge home later today
--- NOTE | 2018-07-27 14:11 | Progress Note ---
[facility] Anesthesia Checklist - Patient Identification Patient Identification: Arm Band - Structural Data Admitted From: Inpatient Planned Operative Procedure/s: dual chamber pacemaker placement Consent for Planned Operative Procedure(s) Verified: Yes Verified Documents: Surgical Consent, History and Physical - NPO Status Verified Time NPO: 00:00 - Additional verifications Anesthesia Reactions: No - Airway Assessment C-Spine Mobility Assessed: Yes (mp2) TMJ Mobility Assessed: Yes Dentition: Edentulous - Neurological Assessment Level of Consciousness: Awake, Alert - Anesthesia Plan Anesthesia Risk discussed: Yes Anesthesia Plan: Verified ASA Class: III Anesthesia Type: [facility] History I have reviewed the patient's past medical history: Yes Medical History: Reports:: Atrial Fibrillation, Chronic Obstructive Pulmonary Disease (COPD), Gastroesophageal Reflux Disease(GERD), Hyperlipidemia, Hypertension Denies:: Cancer, Diabetes Mellitus Type 1, Diabetes Mellitus Type 2, Internal Pacemaker, Lung Disease, MRSA, Seizures *Have you ever received a pneumonia vaccine?: Yes *Have you received a flu vaccine this season?: Yes Other Medical History: Reports: Arthritis Laterality Cases: Left: Other Other Surgeries: Yes: Colonoscopy, Hysterectomy-Total, Tubal Ligation, Other. No: Pacemaker Amputation: No Fractures: Yes (ORIF left wrist) - *Social History Educational Level: Attended High School Smoking Status: Current every day smoker Tobacco Type: cigarettes # Packs/Day (cigarettes): 2 Alcohol Intake: never Alcohol Intake Frequency:: other Substance Use Type: denies use *Occupational Status:: disabled Housing: house Household Members: spouse *Travel in the last 8 weeks: None - Psychiatric History Expresses thoughts of harming self/others: None Suicide Plan Description: No Plan Family Hx:: Cancer, Diabetes, Heart Attack, Hypertension
--- NOTE | 2018-07-28 08:31 | Discharge Summary ---
General - General Admission date:: 07/26/18 Discharge date: 07/28/18 HPI HPI: this pt presented to the ed -pt had syncopal episode - and had loop recorder which showed significant pauses and pt will need pacemaker and was admitted pt was seen by serge 2-year-old white female with history as noted above was seen in the office earlier today. Patient had complained of palpitations and weakness for which she was on beta-lonny therapy. Symptoms had persisted despite carvedilol therapy and it was elected to try and switch her to metoprolol therapy today. After the patient left the office she went to the pharmacy to obtain the new medication and passed out. She had symptoms of weakness and ringing in her ears prior to passing out. She did not suffer any lacerations. She was brought to the ER for further evaluation. Interrogation of her Pins loop recorder showed several episodes of pauses in the last couple of weeks up to 9 seconds, including today. Pt has a home transmitter but the device has not been connected to the system since her last download in 07/06/2018. Patient will be admitted with plans for permanent pacemaker insertion tomorrow. Beta-lonny therapy will be held. Hospital Course Hospital Course: pt did ok in hospital and was seen by serge Brown. Echo, 02/2017, difficult study, mild LAE, normal LV size with mild concentric LVH and LVEF of 55% without regional wall motion abnormality. Aortic valve minimally thickened and fibrosed, mitral and tricuspid valve normal, pulmonic valve poorly visualized with RVSP of 38 mmHg. No significant perica rdial effusion. 2. Hyperlipidemia 3. Coronary artery disease A. Left heart catheterization, 02/2017 for progressive angina ANGIOGRAPHIC RESULTS: 1. The left main artery normal 2. The left anterior descending artery proximally and mid vessel is normal 3. The circumflex artery is a dominant vessel and has mid vessel 20 and 30% nonflow limiting stenoses 4. The right coronary artery is a nondominant yet still large vessel and has a mid vessel smooth 20-30% stenosis 5. The PHAM ventriculogram reveals hyperdynamic at 70% 6. The left ventricular end-diastolic pressure moderately to severely elevated at 30 mmHg IMPRESSION: 1. Mild nonflow limiting coronary artery disease 2. Slightly hyperdynamic ventricle consistent with hypertensive heart disease 3. Moderate to severely elevated LVEDP consistent with moderate to severe diastolic dysfunction PLAN: 1. Patient is a low risk from a cardiac standpoint to proceed with cholecystectomy 2. Patient's dyspnea stems from diastolic heart failure therefore she would benefit from negative inotropes such as diltiazem or verapamil combined with beta blockers. 3. Diuretics would also benefit patient's dyspnea by decreasing EDP 4. Risk factor modification 4. History of palpitations/tachycardia A. [employer] loop recorder previously showing episodes of PVCs 5. Syncope with ILR interrogation showing pauses up to 9 seconds, 07/2018 6. Tobacco use/COPD d beta-lonny for now with plans to reinstitute after pacer insertion due to palpitations and history of tachycardia (?paroxysmal atrial fibrillation) 2. Plan for permanent pacemaker insertion tomorrow or sooner if needed. 3. Recommend bed rest and PRN atropine or dobutamine gtt for sustained bradycardia/recurrent pauses. pacemaker was placed and pt has did ok - had some nausea this am but wishes to go home Objective Vital signs: Temp Pulse Resp BP Pulse Ox 98.4 F 63 18 119/65 92 L 07/28/18 04:53 07/28/18 06:00 07/28/18 04:00 07/28/18 06:00 07/28/18 06:00 no acute distress, obese - *Routine HEENT Exam Eye: Present: EOMI, PERRL ENT: Present: mucous membranes dry - *Routine Neck Exam Present: supple - *Routine Respiratory Exam Absent: respiratory distress - *Routine Cardiovascular Exam Present: RRR - *Routine Abdominal Exam Present: soft - *Routine Extremities Exam Absent: edema - *Routine Skin Exam Present: intact - *Routine Neurological Exam Present: alert, CN II-XII intact - Routine Psychiatric Exam Present: normal affect DS: Diagnosis - Discharge Diagnosis (1) Sick sinus syndrome Status: Acute (2) Syncope and collapse Status: Acute (3) Hyperlipidemia Status: Chronic (4) Hypertension Status: Chronic (5) Tobacco use Status: Chronic (6) Obesity (BMI 30-39.9) Status: Acute (7) Anemia Status: Acute Discharge Plan - Patient Discharge Instructions ACTIVITY: Continue current activity DIET: continue same diet Patient Instructions: DI for Syncope in Adults (Fainting), DI for Pacemaker Insertion, DI for Surgical Site Infection - Follow up Plan Disposition: Home, Self-[facility] Medications: Home Medications Medication Instructions Recorded Confirmed Type Black Cohosh 40 mg PO DAILY 02/27/17 07/26/18 History Calcium Carbonate 1,200 mg PO DAILY 02/27/17 07/26/18 History fluticasone propionate 50 1 spray INTRANASAL DAILY #9.9 g 06/14/18 07/26/18 Rx mcg/actuation nasal spray,suspension lisinopril 5 mg tablet 5 mg PO DAILY #90 tab 06/14/18 07/26/18 Rx lovastatin 10 mg tablet 10 mg PO HS #90 tab 06/14/18 07/26/18 Rx meclizine 25 mg tablet 25 mg PO TID #90 tab 06/14/18 07/26/18 Rx pantoprazole 40 mg tablet,delayed 40 mg PO DAILY #90 tab 06/14/18 07/26/18 Rx release Promethazine HCl [Phenergan 25mg 25 mg PO Q6H PRN #20 tab 07/11/18 07/26/18 Rx tab] Metoprolol Succinate [Toprol XL 50 mg PO DAILY 07/27/18 07/27/18 History 50mg Tablet] Metoprolol Succinate [Toprol XL 25 mg PO DAILY #30 tab.er.24h 07/28/18 Rx 25mg tablet] Ondansetron HCl [Zofran 4mg Tab] 4 mg PO Q6H #30 tab 07/28/18 Rx Prescriptions/Medication Reconciliation: New Metoprolol Succinate [Toprol XL 25mg tablet] 25 mg PO DAILY #30 tab.er.24h Ondansetron HCl [Zofran 4mg Tab] 4 mg PO Q6H #30 tab Continued lisinopril 5 mg tablet 5 mg PO DAILY #90 tab lovastatin 10 mg tablet 10 mg PO HS #90 tab meclizine 25 mg tablet 25 mg PO TID #90 tab pantoprazole 40 mg tablet,delayed release 40 mg PO DAILY #90 tab fluticasone propionate 50 mcg/actuation nasal spray,suspension 1 spray INTRANASAL DAILY #9.9 g Promethazine HCl [Phenergan 25mg tab] 25 mg PO Q6H PRN #20 tab PRN Reason: Nausea And Vomiting Calcium Carbonate 1,200 mg PO DAILY Discontinued Black Cohosh 40 mg PO DAILY Metoprolol Succinate [Toprol XL 50mg Tablet] 50 mg PO DAILY
[2018-07-28 09:24] VITALS: BP 119/53
--- NOTE | 2018-07-30 16:54 | Procedure Note ---
[facility] AICD - AICD Date: 07/27/18 Procedures:: 1. Pocket formation for AICD. 2. Placement of atrial sensing and pacing coil into the right atrial appendage. 3. Placement of a ventricular sensing pacing and shocking coil in the right ventricular apex. 4. Permanent AICD placement Indications for test:: Systolic Congestive Heart Failure Ejection Fraction <35% [place] Heart Association class 3 CHF Informed consent:: Obtained prior to procedure. EBL:: Less than 10 ml. Technique:: 1% lidocaine with epinephrine used to anesthetize the left anterior aspect of chest. Scalpel was used to make the initial cutaneous incision wall electrocautery was used to dissect down into the fascia. The fascia was lifted off the pectoralis muscle and digitally manipulated creating a pocket for the defibrillator. The patient was then placed in Trendelenburg position and the subclavian vein was accessed via the Seldinger technique. A 7 Bengali sheath was placed under fluoroscopic guidance into the subclavian vein. Following this, an additional wire was placed into the sheath. Now, with 2 wires inside the 7 Bengali sheath, this sheath was removed, maintaining the 2 wires in the subclavian vein. This shift and dilator was then placed over 1 of the wires while keeping the other wire in place within the subclavian vein. The dilator was removed from the sheath. Using fluoroscopic guidance, the ventricular lead was placed into the right ventricular apex, screwed and secured into place. Electronic interrogation proved acceptable thresholds and voltage within the lead. Using 3-0 silk, the ventricular lead was then secured into place. Lead was secured to the fascia using the 3-0 silk. Following this, the sheath was peeled away. An additional 7 Bengali fresh sheath and dilator was placed over the existing wire. Using fluoroscopic guidance, the atrial lead was then placed into the right atrial appendage and screwed and secured in place. Electrical interrogation demonstrated acceptable thresholds and voltage number. The atrial lead was then secured into place using 3-0 silk. 1 g of Ancef was used to flush the pocket. Following the defibrillator being secured to the fascia and in place, Monocryl was used to close subcutaneous layer nimco were used to close the cutaneous layer. A pressure dressing was placed and the patient was transferred to the postop holding area in stable condition for postoperative care. Impression:: 1. Successful pocket formation for permanent defibrillator placement. 2. Successful placement of an atrial sensing pacing lead into the right atrial appendage. 3. Successful placement of a ventricular sensing, pacing, and shocking lead in the right ventricular apex. 4. Successful permanent defibrillator placement. Interrogation:: Defibrillator Model number: L311 Defibrillator Serial number: [id number] Atrial lead model number: 7741 Atrial lead serial number: [id number] P-wave: 3.1 mV Impedence: 985 ohms Threshold: 1.3V@0.5ms Ventricular lead model number: 7742 Ventricular lead serial number: [id number] R-wave: 13.7 mV Impedence: 933 ohms Threshold: 0.8V@0.5ms Pacing Parameters: Mode: DDDR Base/Max Track: 60/120 ppm ICD Rate Cutoffs: VT-1: 160 bpm VT-2: 170 bpm No diaphragmatic stimulation at 10 volts. Plan:: 1.Post-op wound care.
--- NOTE | 2018-07-31 15:16 | Procedure Note ---
[facility] Pacemaker - Pacemaker Placement Date of Procedure:: 07/27/18 Time of Procedure:: 12:00 Procedure Performed:: Pocket formation for permanent pacemaker placement Placement of atrial sensing pacing lead into the right atrial appendage Placement of ventricular sensing pacing lead into the right ventricular apex Permanent pacemaker placement Removal of loop recorder Preoperative Diagnosis:: Symptomatic Bradycardia 8 second pause recorded on loop recorder Complications:: None Estimated Blood Loss (ml):: 10 Technique:: 1% Lidocaine with epinephrine used to anesthetize the left anterior aspect of the chest.Scalpel was used to make the initial cutaneous incision while electrocautery was used to dissect down into the fascia. The fascia was lifted off the pectoralis muscle and digitally manipulated creating a pocket for the pacemaker. The patient was then placed in Trendelenburg position and the subclavian vein was accessed via the Selinger technique. A 7 [place]an sheath was placed under fluoroscopic guidance into the subclavian vein. Following this, an additional wire was placed into the sheath. Now, with two wires inside the 7 [place]an sheath, this sheath was removed, maintaining the two wires in the subclavian vein. The sheath and dilator was then placed over one of the wires while keeping the other wire in place within the subclavian vein. The dilator was removed from the sheath. Using fluoroscopic guidance, the ventricular lead was placed into the right ventricular apex, screwed and secured into place. Electronic interrogation proved acceptable thresholds and voltage within the lead. Using 3-0 silk, the ventricular lead was then secured into place. Lead was secured to the fascia using the 3-0 silk. Following this, the sheath was p ealed away. An additional 7 [place] fresh sheath and dilator was placed over the existing wire. Using fluoroscopic guidance, the atrial lead was then placed into the right atrial appendage and screwed and secured in place. Electrical interrogation demonstrated acceptable thresholds and voltage numbers. The atrial lead was then secured into place using 3-0 silk and then the lead was finally secured to the fascia. With both the atria and ventricular leads in place with acceptable thresholds and sensitivity, the atrial and ventricular leads were placed into the pacemaker generator. Pacemaker generator was then secured to the fascia using 3-0 silk. 1 gram of Ancef was used to flush the pocket. Following the pacemaker being secured to the fascia and in place, Monocryl was used to close the subcutaneous layers while nimco were used to close the cutaneous layer. A pressure dressing was placed and the patient was transferred to the postop holding area in stable condition for postoperative care. 1% Lidocaine with epinephrine used to anesthetize the anterior aspect of the intercostal space where loop device was located. Scalpel used to make incision at lateral end of loop device, hemostats used to remove loop device from subcutaneous tissue. Steri-strips used to close incision. Will also be followed up with post operative care. - Interrogation Narrative: Generator Model number: L311 Generator Serial number: [id number] Right Atrial Lead Model number: 7741 Right Atrial Lead Serial number: [id number] P-wave measurements: 3.1 mV RA Lead Impedence: 985 ohms RV Lead Threshold: 1.3V @ 0.5ms Right Ventricular Lead Model number: 7742 Right Ventricular Lead Serial number: [id number] R-wave measurements: 13.7 mV RV Lead Impedence: 933 ohms RV Lead Threshold: 0.8V @ 0.5ms Pacing Parameters: Mode: DDDR Base/Max: 16/120 ppm Impression:: Successful pocket formation for permanent pacemaker placement Successful placement of atrial and sensing pacing lead into the right atrial appendage Successful placement of ventricular sensing and pacing lead into the right ventricular apex Successful permanent pacemaker placement Successful removal of loop recorder device Plan: Postoperative wound care
== END 2018-07-28 11:23 | disposition home or self-care (01) | DRG 244 ==
LOC: ER 11:21 → 2ND 11:21 → OBSVTOIN 14:28 → 2ND 14:56
PROVIDERS: ADMIT Emergency Medicine; ATTEND Emergency Medicine
CPT/HCPCS: 33208; 33284; 33286; 36415; 70450; 71010; 71045; 72125; 72170; 80048; 80053; 82962; 84484; 85025; 93005; 94761; 99283; C1785; C1898; J2405

== ENCOUNTER 2018-08-01 15:31 | Emergency (ER) | payer MEDICARE, BC, SELFPAY ==
[2018-08-01 15:51] VITALS: BP 141/64; PULSE 77; RESP 17; TEMP 36.7; O2SAT 90; BMI 38.5
--- NOTE | 2018-08-01 16:28 | XR_ITS ---
XR chest portable HISTORY: ITS.REASON: RECENT PACEMAKER PLACED NOW PT HAS PEDAL EDEMA ORDERING PHYSICIAN: Luis Barlow MD PATIENT AGE: 62 years COMPARISON: 07/27/2018 FINDINGS: Unremarkable heart size. Bipolar pacemaker remains in place from a left subclavian approach. No evidence of CHF. There are increased markings in the right lung base which may be due to an area of atelectasis or infiltrate. Patient's chin obscures the upper chest. IMPRESSION: Cardiac pacemaker remains in place. Mild right basilar atelectasis or infiltrate.
[2018-08-01 16:35] LABS: Basophils # 0.1 K/mm3 (0-0.2); Basophils % 0.6 % (0.1-2.0); Eosinophils # 0.2 K/mm3 (0.0-0.4); Eosinophils % 2.4 % (0.1-12.0); Hematocrit 31.7 % (37.0-47.0); Lymphocytes # 2.5 K/mm3 (0.7-4.5); Lymphocytes % 30.1 % (10-50); Mean Corpuscular HGB Conc 31.6 g/dL (31.8-35.4); Mean Corpuscular Hemoglobin 27.1 pg (27.0-31.2); Mean Corpuscular Volume 85.7 fl (81-99); Mean Platelet Volume 7.2 fl (7.4-10.4); Monocytes # 0.5 K/mm3 (0.1-1.0); Monocytes % 5.7 % (1.7-9.3); Neutrophils # 5.1 K/mm3 (1.8-7.8); Neutrophils % 61.3 % (37.0-80.0); Platelet Count 365 K/mm3 (142-424); Red Cell Distribution Width 13.8 % (11.5-17.5); White Blood Count 8.4 K/mm3 (4.8-10.8)
[2018-08-01 16:48] VITALS: PULSE 71; O2SAT 94
[2018-08-01 16:48] LABS: Anion Gap 13.5 mEq/L (5-15); Blood Urea Nitrogen 9 mg/dL (7-18); Calcium 9.1 mg/dL (8.5-10.1); Carbon Dioxide 30 mmol/L (21.0-32.0); Chloride 104 mmol/L (98-107); Creatinine Clearance Estimated 89 mL/min (50-200); Estimated Glomerular Filt Rate 64 ml/min (>60); GFR (African American) 77 ML/MIN (>60); Glucose 87 mg/dL (74-106); Potassium 3.5 mmoL/L (3.5-5.1); Sodium 144 mmol/L (136-145); Troponin I < 0.02 ng/ml (0.00-0.06)
[2018-08-01 17:12] VITALS: BP 123/58; PULSE 71; O2SAT 94
[2018-08-01 18:18] VITALS: BP 176/100; PULSE 64; O2SAT 95
--- NOTE | 2018-08-01 18:38 | HMH.EDGENADL ---
ED Disposition Clinical Impression: Lower extremity edema, Elevated d-dimer Disposition: Home, Self-Care Condition on Discharge: Good Instructions: DI for Deep Vein Thrombosis Additional Instructions: outpatient order for dvt check R leg in the am. She is to come about two hours before her appointment with Dr. Weber Referrals: Luis Eckert MD [Primary Care Provider] - Time of Disposition: 19:49 - Critical Care Critical Care Time: No Attestation: On 08/01/18, the high probability of a clinically significant, sudden or life threatening deterioration of the following system(s) required my full and direct attention, intervention and personal management. The time I documented below is in addition to time spent performing reported procedures but includes the following listed in this critical care notation. Medical Decision Making - Medical Records Medical records reviewed: Yes: I reviewed the patient's medical records. - John Inquiry Pt receiving controlled substance: No John was queried for this patient: No Vital Signs: 08/01/18 15:51 08/01/18 16:48 08/01/18 17:12 Temperature 98.1 F Temperature Source Oral Pulse Rate Pulse Rate [Right Brachial] 77 71 71 Respiratory Rate 17 Blood Pressure Blood Pressure [Right Arm] 141/64 H 123/58 L Blood Pressure Mean [Right Arm] 89 79 Blood Pressure Source [Right Arm] Automatic Cuff Automatic Cuff Blood Pressure Position [Right Arm] Sitting Sitting 02 Sat by Pulse Oximetry 90 L 94 L 94 L Oxygen Delivery Method Room Air Room Air Nasal Cannula Oxygen Flow Rate (LPM) 2 08/01/18 18:18 08/01/18 19:41 08/01/18 19:44 Temperature 98.1 F Temperature Source Oral Pulse Rate 68 Pulse Rate [Right Brachial] 64 67 Respiratory Rate 18 18 Blood Pressure 132/74 Blood Pressure [Right Arm] 176/100 H 114/89 Blood Pressure Mean [Right Arm] 125 97 Blood Pressure Source [Right Arm] Automatic Cuff Automatic Cuff Blood Pressure Position [Right Arm] Sitting Sitting 02 Sat by Pulse Oximetry 95 95 Oxygen Delivery Method Nasal Cannula Room Air Oxygen Flow Rate (LPM) 2 - Lab Data Lab results reviewed: Yes: I reviewed the patient's lab results. Lab Results 08/01/18 16:10: WBC 8.4, RBC 3.70 L, Hgb 10.0 L, Hct 31.7 L, MCV 85.7, MCH 27.1, MCHC 31.6 L, RDW 13.8, Plt Count 365, MPV 7.2 L, Neut % (Auto) 61.3, Lymph % (Auto) 30.1, [place] % (Auto) 5.7, Eos % (Auto) 2.4, Baso % (Auto) 0.6, Neut # (Auto) 5.1, Lymph # (Auto) 2.5, [place] # (Auto) 0.5, Eos # (Auto) 0.2, Baso # (Auto) 0.1 08/01/18 16:10: Sodium 144, Potassium 3.5, Chloride 104, Carbon Dioxide 30, Anion Gap 13.5, BUN 9, Creatinine 0.90, Estimated Creat Clear 89, Estimated GFR 64, Est GFR ( Amer) 77, Glucose 87, Calcium 9.1, Troponin I < 0.02 08/01/18 16:10: B-Natriuretic Peptide 142 H 08/01/18 16:10: D-Dimer 1710 H* Result diagrams: 08/01/18 16:10 08/01/18 16:10 Orders (Tests/Meds): ED MEDICATIONS Discontinued Medications Generic Name Dose Route Start Last Admin Trade Name Freq PRN Reason Stop Dose Admin Enoxaparin Sodium 140 mg 08/01/18 19:19 08/01/18 19:40 Lovenox 120mg/0.8ml Syringe SQ 08/01/18 19:20 140 mg ONCE ONE Administration Ketorolac Tromethamine 30 mg 08/01/18 18:48 08/01/18 18:58 Toradol 30mg/Ml Vial IV 08/01/18 18:49 30 mg ONCE ONE Administration ORDERS Category Date Time Status ECG Request by /Nse Stat Y 08/01/18 16:27 Ordered General Adult HPI - General Chief complaint: PAIN Stated complaint: Possible DVT in R Foot Time Seen by Provider: 08/01/18 18:39 Mode of Arrival: Family Vehicle Source of Information: Patient Limitations: No Limitations Description of Symptoms (Recalled from ER Triage Doc. by RN): right side lower extremity swelling, turned into bilat swelling; status post left anterior chest pacemaker placement - Related Data Home Medications Medication Instructions Recorded Confirmed Calcium Carbonate
--- NOTE | 2018-08-01 18:47 | ED_ITS ---
ED Disposition Clinical Impression: Lower extremity edema, Elevated d-dimer Disposition: Home, Self-Care Condition on Discharge: Good Instructions: DI for Deep Vein Thrombosis Additional Instructions: outpatient order for dvt check R leg in the am. She is to come about two hours before her appointment with Dr. Weber Referrals: Luis Eckert MD [Primary Care Provider] - Time of Disposition: 19:49 - Critical Care Critical Care Time: No Attestation: On 08/01/18, the high probability of a clinically significant, sudden or life threatening deterioration of the following system(s) required my full and direct attention, intervention and personal management. The time I documented below is in addition to time spent performing reported procedures but includes the following listed in this critical care notation. Medical Decision Making - Medical Records Medical records reviewed: Yes: I reviewed the patient's medical records. - John Inquiry Pt receiving controlled substance: No John was queried for this patient: No Vital Signs: 08/01/18 15:51 08/01/18 16:48 08/01/18 17:12 Temperature 98.1 F Temperature Source Oral Pulse Rate Pulse Rate [Right Brachial] 77 71 71 Respiratory Rate 17 Blood Pressure Blood Pressure [Right Arm] 141/64 H 123/58 L Blood Pressure Mean [Right Arm] 89 79 Blood Pressure Source [Right Arm] Automatic Cuff Automatic Cuff Blood Pressure Position [Right Arm] Sitting Sitting 02 Sat by Pulse Oximetry 90 L 94 L 94 L Oxygen Delivery Method Room Air Room Air Nasal Cannula Oxygen Flow Rate (LPM) 2 08/01/18 18:18 08/01/18 19:41 08/01/18 19:44 Temperature 98.1 F Temperature Source Oral Pulse Rate 68 Pulse Rate [Right Brachial] 64 67 Respiratory Rate 18 18 Blood Pressure 132/74 Blood Pressure [Right Arm] 176/100 H 114/89 Blood Pressure Mean [Right Arm] 125 97 Blood Pressure Source [Right Arm] Automatic Cuff Automatic Cuff Blood Pressure Position [Right Arm] Sitting Sitting 02 Sat by Pulse Oximetry 95 95 Oxygen Delivery Method Nasal Cannula Room Air Oxygen Flow Rate (LPM) 2 - Lab Data Lab results reviewed: Yes: I reviewed the patient's lab results. Lab Results 08/01/18 16:10: WBC 8.4, RBC 3.70 L, Hgb 10.0 L, Hct 31.7 L, MCV 85.7, MCH 27.1, MCHC 31.6 L, RDW 13.8, Plt Count 365, MPV 7.2 L, Neut % (Auto) 61.3, Lymph % (Auto) 30.1, [place] % (Auto) 5.7, Eos % (Auto) 2.4, Baso % (Auto) 0.6, Neut # (Auto) 5.1, Lymph # (Auto) 2.5, [place] # (Auto) 0.5, Eos # (Auto) 0.2, Baso # (Auto) 0.1 08/01/18 16:10: Sodium 144, Potassium 3.5, Chloride 104, Carbon Dioxide 30, Anion Gap 13.5, BUN 9, Creatinine 0.90, Estimated Creat Clear 89, Estimated GFR 64, Est GFR ( Amer) 77, Glucose 87, Calcium 9.1, Troponin I < 0.02 08/01/18 16:10: B-Natriuretic Peptide 142 H 08/01/18 16:10: D-Dimer 1710 H* Result diagrams: 08/01/18 16:10 08/01/18 16:10 Orders (Tests/Meds): ED MEDICATIONS Discontinued Medications Generic Name Dose Route Start Last Admin Trade Name Freq PRN Reason Stop Dose Admin Enoxaparin Sodium 140 mg 08/01/18 19:19 08/01/18 19:
[2018-08-01 19:15] LABS: D-Dimer 1710 ng/mL (0-400)
--- NOTE | 2018-08-01 19:20 | PC.NURSE ---
Spoke to Pharmacy to very meds.
[2018-08-01 19:41] VITALS: BP 114/89; PULSE 67; RESP 18; O2SAT 95
[2018-08-01 19:44] VITALS: BP 132/74; PULSE 68; RESP 18; TEMP 36.7; O2SAT 96
== END 2018-08-01 19:47 | disposition home or self-care (01) ==
LOC: ER 15:51
PROVIDERS: Emergency Provider Emergency Medicine; PCP Emergency Medicine
DX: I82.4Z1 Acute embolism and thrombosis of unspecified deep veins of right distal lower extremity (principal); Z95.0 Presence of cardiac pacemaker; I10 Essential (primary) hypertension; F17.210 Nicotine dependence, cigarettes, uncomplicated; K21.9 Gastro-esophageal reflux disease without esophagitis; J44.9 Chronic obstructive pulmonary disease, unspecified; I48.91 Unspecified atrial fibrillation; R06.02 Shortness of breath
CPT/HCPCS: 71045; 80048; 83880; 84484; 85025; 85378; 93005; 96374; 96375; 99284

== ENCOUNTER → 2018-08-02 08:56 | Outpatient (CLI) | payer MEDICARE, BC, SELFPAY ==
--- NOTE | 2018-08-02 | NVE_ITS ---
Venous Exam IMPRESSIONS 1. There is no evidence of significant Reflux. 2. No evidence of deep or superficial vein thrombosis involving the right lower extremity History: Swelling of the right lower extremity. Edema off and on in lower extremities for a year. She noticed the edema in right lower extremity is greater since last Monday post pacemaker. She received a Lovenox injection in ER last night. Aspirin daily. No trauma Risk factors: Hypertension. Right lower extremity venous duplex evaluation. Doppler flow study including spectral analysis, color and mays scale imaging. Location: Vascular laboratory. Patient status: Outpatient. Tables: Venous flow and imaging: + +-------+ + Location Overall Flow properties + +-------+ + Right common femoral Patent Normal phasicity; spontaneous; normal augmentation; compressible + +-------+ + Right saphenofemoral junction Patent Compressible + +-------+ + Right profunda femoral Patent Compressible + +-------+ + Right femoral Patent Normal phasicity; spontaneous; normal augmentation; compressible + +-------+ + Right greater saphenous Patent Normal phasicity; spontaneous; normal augmentation; compressible + +-------+ + Right popliteal Patent Normal phasicity; spontaneous; normal augmentation; compressible + +-------+ + Right posterior tibial Patent Compressible + +-------+ + Right peroneal Patent Compressible + +-------+ + Right gastrocnemius Patent Compressible + +-------+ + Right soleal Patent Compressible + +-------+ + (Report amended ) Electronically signed by: Albaro Hendrickson [id number]
== END ==
PROVIDERS: PCP Emergency Medicine; Visit Provider Emergency Medicine
DX: M79.661 Pain in right lower leg (principal)
CPT/HCPCS: 93971

== ENCOUNTER → 2018-08-14 15:11 | Outpatient (CLI) | payer MEDICARE, BC, SELFPAY ==
--- NOTE | 2018-08-14 15:15 | CA_ITS ---
PROCEDURE: 2-D M-mode and color Doppler study INDICATIONS FOR THE TEST: Chest pain COPD Heart Murmur Tobacco Smoking Palpitations FatigueX SyncopeX EdemaX Hypertension Diabetes Mellitus Rheumatic Fever SOBXDOE Obesity Hyperlipidemia Family History HD Additional History RECENT PP PATIENT INFORMATION HEIGHT: 63 WEIGHT:218 GENDER: Female B/P:182/74 2-D/M-MODE INTERPRETATION: 2-D MEASUREMENTS OBSERVED VALUES IN CMS Right Ventricular Dimension (RVDd) 3.5 Interventricular Septum (Thickness)(IVsd) 1.0 Left Ventricular Internal Dimensions(LVIDd) 5.0 Left Ventricular Posterior Wall (Thickness)(LVPWd) .9 Aortic Root 3.3 Aortic Cusp Separation 1.9 Left Atrial Dimensions (LAD) 3.0 2D 1. Left atrium is mildly enlarged, left ventricle is normal size, left ventricle wall thickness is upper limit of the normal, visually estimated ejection fraction proximally 50%, there is abnormal septal motion. 2. The right atrium and right ventricle are mildly enlarged with normal contractility. 3. The aortic valve is minimally thickened and fibrosed. 4. The mitral and tricuspid valve leaflets are minimally thickened. 5. Pulmonic valve is poorly visualized. 6. No significant pericardial effusion noted. DOPPLER INTERROGATION: Doppler interrogation of the aortic, mitral and tricuspid valvular presence of mild mitral and tricuspid regurgitation, tricuspid regurgitation jet velocity is inadequate for calculation of the right ventricular systolic pressure, grade 1 diastolic dysfunction seen without tissue Doppler evidence of raised left atrial pressure. CONCLUSION: 1. Mildly enlarged left atrium, normal left ventricular size, visually estimated ejection fraction approximately 50%, there is abnormal septal motion. Grade 1 diastolic dysfunction seen without tissue Doppler evidence of raised left atrial pressure. 2. Mild mitral and tricuspid regurgitation 3. No significant pericardial effusion noted.
== END ==
PROVIDERS: PCP Emergency Medicine; Visit Provider Internal Medicine
DX: R06.02 Shortness of breath (principal)
CPT/HCPCS: 93306

== ENCOUNTER → 2018-08-31 09:52 | Outpatient (CLI) | payer MEDICARE, BC, SELFPAY ==
[2018-08-31 10:50] LABS: Basophils # 0.1 K/mm3 (0-0.2); Basophils % 0.7 % (0.1-2.0); Eosinophils # 0.2 K/mm3 (0.0-0.4); Hematocrit 35.6 % (37.0-47.0); Lymphocytes % 28.8 % (10-50); Mean Corpuscular HGB Conc 30.9 g/dL (31.8-35.4); Mean Corpuscular Hemoglobin 26.5 pg (27.0-31.2); Mean Corpuscular Volume 85.6 fl (81-99); Mean Platelet Volume 7.5 fl (7.4-10.4); Monocytes # 0.5 K/mm3 (0.1-1.0); Monocytes % 4.4 % (1.7-9.3); Neutrophils # 6.7 K/mm3 (1.8-7.8); Neutrophils % 64.1 % (37.0-80.0); Platelet Count 402 K/mm3 (142-424); Red Blood Count 4.16 M/mm3 (4.20-5.40); Red Cell Distribution Width 13.8 % (11.5-17.5); White Blood Count 10.5 K/mm3 (4.8-10.8)
[2018-08-31 11:43] LABS: Erythrocyte Sedimentation Rate 95 mm/hr (0-30)
[2018-08-31 11:58] LABS: Alanine Aminotransferase 31 U/L (12-78); Albumin Level 3.2 gm/dL (3.4-5.0); Albumin/Globulin Ratio 0.8 (1.1-1.8); Alkaline Phosphatase 93 U/L (46-116); Anion Gap 12.2 mEq/L (5-15); Aspartate Amino Transferase 16 U/L (15-37); Bilirubin,Total 0.3 mg/dL (0.2-1.0); Blood Urea Nitrogen 14 mg/dL (7-18); C-Reactive Protein 2.2 mg/L (0.0-0.9); Calcium 9.7 mg/dL (8.5-10.1); Carbon Dioxide 28 mmol/L (21.0-32.0); Chloride 104 mmol/L (98-107); Creatinine,Serum 0.98 mg/dL (0.55-1.02); Estimated Glomerular Filt Rate 58 ml/min (>60); Ferritin 117 ng/mL (8-388); GFR (African American) 70 ML/MIN (>60); Globulin 4.2 gm/dl (1.3-3.2); Glucose 104 mg/dL (74-106); Potassium 4.2 mmoL/L (3.5-5.1); Sodium 140 mmol/L (136-145); Total Protein,Serum 7.4 gm/dL (6.4-8.2)
[2018-09-01 08:40] LABS: Iron 63 ug/dL (27-139); UIBC 201 ug/dL (118-369)
[2018-09-01 18:16] LABS: Iron Saturation 24 % (15-55)
== END ==
PROVIDERS: Visit Provider Nurse Practitioner Family
DX: R53.83 Other fatigue (principal); I49.5 Sick sinus syndrome
CPT/HCPCS: 80053; 82728; 83540; 83550; 85025; 85651; 86140

== ENCOUNTER → 2018-09-17 13:00 | Outpatient (CLI) | payer MEDICARE, BC, SELFPAY | PROVIDERS: Visit Provider Nurse Practitioner Family | DX: D64.9 Anemia, unspecified (principal) | CPT/HCPCS: 36415; 82272; 84550; 85651; 86038; 86431; G0328 ==

== ENCOUNTER → 2018-09-17 14:42 | Outpatient (CLI) | payer MEDICARE, BC, SELFPAY ==
--- NOTE | 2018-09-17 14:43 | XR_ITS ---
XR chest 2V HISTORY: Smoker, elevated sedimentation rate ITS.REASON: elevated ESR ORDERING PHYSICIAN: Turner Gonsalves APRN PATIENT AGE: 62 years COMPARISON: 08/01/2018 FINDINGS: Bipolar pacemaker is present. Normal heart size. Old granulomatous disease.. The lungs are clear without infiltrates, suspicious nodules, or pleural effusions. No acute bony abnormalities. IMPRESSION: No acute finding
--- NOTE | 2018-09-17 14:43 | MM_ITS ---
MM Dig screening mamm BI w/CAD ORDERING PHYSICIAN : Turner Gonsalves APRN PATIENT AGE: 62 years GENDER: Female COMPARISON: July 2014. November 2016, July 2015 INDICATION: ITS routine screening mammogram.. No hormones. No new complaints. Long-standing inverted nipples. Family history. Noncontributory. TECHNIQUE: Standard CC and MLO images were obtained. R2 CAD reviewed. Additional views included today: Right axillary cc view, CC nipple profile viewsbilaterally. & Left MLO to includeIMF FINDINGS minimal residual fibroglandular elements bilaterally .: Lower density breast with moderate fatty replacement bilaterally. . No dominant or suspicious mass. No suspicious calcifications. Scattered dense singular benign calcifications RIGHT BREAST:No new areas of concern follow-up in one year recommended LEFT BREAST: Pacemaker is seen at the very deep axillary left breast. Scattered subtle areas of minimal nodularity. There is a small 5 mm nodule at the central breast labeled X. This irregular margins on cc views. The patient has had some scattered nodularity before with seems to come and go MS is heads likely small cyst previously. However given the irregular margin of this region I would suggest spot CC, rolled spot CC views, & spot MLO view to further evaluate.-With Ultrasound left breast also suggested ====== IMPRESSION: ========= Left mammogram. Suggestion of small 5 mm nodular density at central breast. Slight irregular margins on cc view, but this nodule becomes only questionably/faintly seen on MLO view. Recommend spot views as in text, followed by left breast ultrasound to further evaluate. Right breast is stable. follow-up right mammogram 1 year recommended & encouraged BI-RADS Category: 0 Need Additional Imaging Evaluation RECOMMENDED FOLLOW-UP: IMM - IMMEDIATE FOLLOW-UP RECOMMENDED Spot views left breast followed by ultrasound (A letter has been sent to the patient regarding results of the study.) A
[2018-09-17 14:52] LABS: Occult Blood,Stool Negative (Negative)
[2018-09-17 16:02] LABS: Erythrocyte Sedimentation Rate > 140 mm/hr (0-30)
[2018-09-17 16:19] LABS: Uric Acid 6.4 mg/dL (2.6-7.2)
[2018-10-10 12:14] LABS: RA Latex Turbid. 12
== END ==
PROVIDERS: PCP Emergency Medicine; Visit Provider Nurse Practitioner Family
DX: Z12.31 Encounter for screening mammogram for malignant neoplasm of breast (principal); R70.0 Elevated erythrocyte sedimentation rate; D64.9 Anemia, unspecified; R53.83 Other fatigue; K64.9 Unspecified hemorrhoids
CPT/HCPCS: 36415; 71046; 77067; 82272; 84550; 85651; 86038; 86431; G0328

== ENCOUNTER → 2018-10-11 13:01 | Outpatient (CLI) | payer MEDICARE, BC, SELFPAY ==
--- NOTE | 2018-10-11 13:03 | US_ITS ---
PROCEDURE: MM DIG MAMM DX UNILAT LT CAD CLINICAL INDICATION: Abn mamm Follow-up abnormal mammogram COMPARISON: DIGMAMMS MAMMOGRAM SCREEN-BLUEPRINT PROCESSOR N/C from 09/01/2008 [facility] DIGITAL MAMM-SCREEN BILATERAL from 10/09/2009 [facility] DIG MAMM-SCREEN BETH from 07/15/2014 [facility]B DIG MAMM-SCREEN BETH from 08/12/2015 [facility] DIG MAMM-DX BETH W/AVWS W/CAD from 12/12/2016 DIG MAMM-SCREEN BETH from 09/17/2018 from 09/17/2018 US BREAST LT COMPLETE from 10/11/2018 TECHNIQUE: Problem solving views of the left breast along with left breast ultrasound FINDINGS: Average fibroglandular tissue. The nodular area noted in the central aspect of the left breast appears less apparent on the spot compression views. This nodule is not identified on the orthogonal view with certainty. Left breast ultrasound: No cystic or solid lesions evident. The IMPRESSION: No convincing evidence of malignancy. Probably benign. Recommend 6 month mammographic follow-up BI-RAD Category: 3 Probably Benign Finding Short Term Follow-up FOLLOW-UP: 6M 6Month Follow-up (A letter has been sent to the patient regarding results of the study.) Dictated by: Albaro Hendrickson MD 10/12/2018 14:09 Signed by: <Electronically signed by Albaro Hendrickson MD in [place]> 10/12/2018 14:09
== END ==
PROVIDERS: PCP Emergency Medicine; Visit Provider Nurse Practitioner Family
DX: R92.8 Other abnormal and inconclusive findings on diagnostic imaging of breast (principal)
CPT/HCPCS: 76641; 77065

== ENCOUNTER → 2018-10-24 13:46 | Outpatient (CLI) | payer MEDICARE, BC, SELFPAY ==
[2018-10-24 14:31] LABS: Hematocrit 34.9 % (37.0-47.0); Hemoglobin 11.1 g/dL (12.2-16.2)
== END ==
PROVIDERS: Visit Provider Surgery
DX: D64.9 Anemia, unspecified (principal)
CPT/HCPCS: 36415; 85014; 85018

== ENCOUNTER → 2018-10-29 08:36 | Outpatient (CLI) | payer MEDICARE, BC, SELFPAY ==
--- NOTE | 2018-10-29 08:38 | FL_ITS ---
PROCEDURE: FL UPPER GI SMALL BOWEL CLINICAL INDICATION: anemia Anemia, heartburn, pain COMPARISON: ABDPELW/O CT ABD PELVIS W/O CONTRAST from 06/20/2014 ABDPELW/O CT ABD PELVIS W/O CONTRAST from 01/05/2015 TECHNIQUE: FLUOROSCOPY TIME : 2 minutes FINDINGS: Nail Maker exam shows multiple calcifications in the right upper quadrant compatible with gallstones. Esophagus and stomach have an unremarkable appearance. No ulcer or mass evident. There is a diverticulum noted projecting from the descending portion of the duodenum. This measures approximately 6.5 cm. The small bowel has an unremarkable appearance. No obstructing lesions dilatation or mucosal abnormalities are evident. Spot views of the terminal ileum are unremarkable. IMPRESSION: 1. Cholelithiasis. 2. Duodenal diverticulum. 3. Otherwise unremarkable upper GI and small-bowel follow-through Dictated by: Albaro Hendrickson MD 10/29/2018 12:51 Electronically signed by Albaro Hendrickson MD in [place] 10/29/2018 12:51
== END ==
PROVIDERS: PCP Emergency Medicine; Visit Provider Surgery
DX: R13.10 Dysphagia, unspecified (principal)
CPT/HCPCS: 74245

== ENCOUNTER → 2019-04-09 14:25 | Outpatient (CLI) | payer MEDICARE, BC, SELFPAY ==
--- NOTE | 2019-04-09 14:25 | US_ITS ---
PROCEDURE: MM DIG MAMM DX UNILAT LT CAD CLINICAL INDICATION: 6 mth f/u due after mar 2019 COMPARISON: DMSB DIG MAMM-SCREEN BETH from 08/12/2015 [facility] DIG MAMM-DX BETH W/AVWS W/CAD from 12/12/2016 DIG MAMM-SCREEN BETH from 09/17/2018 MM DIG MAMM DX UNILAT LT CAD from 10/11/2018 US BREAST LT COMPLETE from 10/11/2018 US BREAST LT COMPLETE from 04/09/2019 TECHNIQUE: Standard CC and MLO images and 3D Tomosynthesis was obtained. R2 CAD reviewed. Left breast ultrasound FINDINGS: There is average fibroglandular tissue. Benign-appearing nodular densities are present on the left and are overall not significantly changed. No malignant appearing mass or malignant-appearing microcalcification. Benign-appearing nodule in the central aspect of the left breast measures approximately 3-4 mm and is not significantly changed. Left breast ultrasound: There are 2 small cysts present 1 at 11 o'clock at 3 mm which could correspond to the mammographic abnormality and 1 at 8 o'clock at 2-3 mm. No suspicious nodules are evident. Recommend resume screening mammogram September 2019 IMPRESSION: BI-RAD Category: 2 Benign Finding(s) FOLLOW-UP: 6M 6Month Follow-up (A letter has been sent to the patient regarding results of the study.) Dictated by: Albaro Hendrickson MD 04/16/2019 09:15 Electronically signed by Albaro Hendrickson MD in [place] 04/16/2019 09:15
== END ==
PROVIDERS: PCP Emergency Medicine; Visit Provider Emergency Medicine
DX: R92.8 Other abnormal and inconclusive findings on diagnostic imaging of breast (principal)
CPT/HCPCS: 76641; 77061; 77065; G0279

== ENCOUNTER 2019-09-07 18:13 | Emergency (ER) | payer MEDICARE, BC, SELFPAY ==
--- NOTE | 2019-09-07 18:24 | HMH.EDGENADL ---
ED Disposition Clinical Impression: Vertigo Disposition: Home, Self-Care Condition on Discharge: Good Instructions: DI for Vertigo, DI for Nausea -- Adult Additional Instructions: Continue meclizine. Phenergan as needed for nausea and vomiting. Follow-up with primary care provider on Monday if not improved. Return if worsening, severe dizziness, unable to walk, severe vomiting. Referrals: Luis Eckert MD [Primary Care Provider] - - Critical Care Critical Care Time: No Attestation: On , the high probability of a clinically significant, sudden or life threatening deterioration of the following system(s) required my full and direct attention, intervention and personal management. The time I documented below is in addition to time spent performing reported procedures but includes the following listed in this critical care notation. Medical Decision Making - Medical Records Medical records reviewed: Yes: I reviewed the patient's medical records. - John Inquiry Pt receiving controlled substance: No Vital Signs: 09/07/19 18:27 09/07/19 19:18 Temperature 98.3 F Temperature Source Oral Pulse Rate [Radial] 72 73 Respiratory Rate 21 16 Blood Pressure [Right Arm] 134/77 144/67 H Blood Pressure Mean [Right Arm] 96 92 Blood Pressure Source [Right Arm] Automatic Cuff Blood Pressure Position [Right Arm] Supine 02 Sat by Pulse Oximetry 96 96 Oxygen Delivery Method Room Air Room Air - Lab Data Lab results reviewed: Yes: I reviewed the patient's lab results. Lab Results 09/07/19 18:30: WBC 11.0 H, RBC 3.97 L, Hgb 11.7 L, Hct 34.9 L, MCV 87.9, MCH 29.6, MCHC 33.7, RDW 13.5, Plt Count 367, MPV 7.6, Neut % (Auto) 57.1, Lymph % (Auto) 35.2, [place] % (Auto) 4.8, Eos % (Auto) 2.3, Baso % (Auto) 0.5, Neut # (Auto) 6.3, Lymph # (Auto) 3.9, [place] # (Auto) 0.5, Eos # (Auto) 0.3, Baso # (Auto) 0.1 09/07/19 18:30: Sodium 143, Potassium 3.8, Chloride 105, Carbon Dioxide 29, Anion Gap 12.8, BUN 7, Creatinine 0.70, Estimated Creat Clear 88, Estimated GFR 85, Est GFR ( Amer) 103, Glucose 95, Calcium 10.4 H, Total Bilirubin 0.3, AST 32, ALT 29, Alkaline Phosphatase 107, Troponin I < 0.01, Total Protein 8.1, Albumin 4.2, Globulin 3.9 H, Albumin/Globulin Ratio 1.1 Result diagrams: 09/07/19 18:30 09/07/19 18:30 Orders (Tests/Meds): ED MEDICATIONS Generic Name Dose Route Start Last Admin Trade Name Freq PRN Reason Stop Dose Admin Sodium Chloride 1,000 mls @ 999 mls/hr 09/07/19 18:45 09/07/19 18:38 Sod Chlor 0.9% 1000ml Bag IV 09/07/19 19:45 999 mls/hr .Q1H1M HAROLDO Administration Promethazine HCl 1 arin 09/07/19 19:42 Phenergan 25mg Tablet Take Home Pack (10) PO 10/07/19 19:41 Q6HP PRN Nausea And Vomiting Discontinued Medications Generic Name Dose Route Start Last Admin Trade Name Freq PRN Reason Stop Dose Admin Ondansetron HCl 4 mg 09/07/19 18:34 09/07/19 18:37 Zofran 4mg/2ml Vial IV 09/07/19 18:35 4 mg ONCE ONE Administration Promethazine HCl 12.5 mg 09/07/19 18:35 09/07/19 18:39 Phenergan 25mg/Ml 1ml Vial IV 09/07/19 18:36 12.5 mg ONCE ONE Administration Sodium Chloride 25 ml 09/07/19 18:35 09/07/19 18:39 Sod Chlor 0.9% 25ml Bag IV 09/07/19 18:36 25 ml ONCE ONE Administration ORDERS Category Date Time Status XR chest portable Stat Exams 09/07/19 18:34 Taken - Radiology Data #1 Image(s): Chest Image Reviewed: Yes I reviewed the patient's radiology image granulomas. JONNATHNA mosher. - ECG Data Tracing #1 EKG interpreted by Maycol Villa MD: Rhythm: sinus Rate: 72 [place]: normal Ectopy: none Conduction: normal ST Segment Changes: none T Wave Changes: Nonspecific Q Waves: none Prior electrocardiagrams reviewed. No change from prior tracings. - Reevaluation(s) Time: 19:40 Reevaluation #1: Patient says she is feeling better. Just a little dizzy. Nausea resolved. Would like to be discharged.
[2019-09-07 18:27] VITALS: BP 134/77; PULSE 72; RESP 21; TEMP 36.8; O2SAT 96; BMI 38.5
--- NOTE | 2019-09-07 18:34 | ECG_ITS ---
APPROVED REPORT Exam: Resting ECG HR:72 bpm ECG Measurements Heart Rate 72 AXES ND 144 P 71 QRSd 90 QRS 78 QT 374 T 60 QTc 409 <Conclusion> Normal sinus rhythm T wave abnormality, consider anterior ischemia Abnormal ECG Electronically signed by : Dmitriy Pringle, 09/09/2019 15:16:13
--- NOTE | 2019-09-07 18:34 | XR_ITS ---
PROCEDURE: XR CHEST PORTABLE Patient Age:63Y CLINICAL HISTORY: spasm Vertigo. Pacemaker COMPARISON: CXR2V XR chest 2V from 02/26/[address] angio chest from 02/26/2017 CXR2V XR chest 2V from 12/18/2017 XR CHEST PORTABLE from 04/23/2019 FINDINGS: AP portable chest is compared to previous P CXR April 23, 2019 and PA lateral chest December 2017 Heart is upper normal in size. With borderline cardiomegaly.-Heart size may be in part accentuated by the less than optimal inspiration with diaphragm only down to the anterior 4th rib. Pacemaker overlies left chest with atrial and ventricular lead intact. Suboptimal inspiration also slightly crowd and accentuates lung markings but no discrete focal pneumonia or acute new pulmonary process felt to be present.. There may be some mild pulmonary vascular engorgement, but I believe stable and similar to 2017 exam mild chronic changes bilaterally most evident left chest. . Toya and mediastinal structures appear satisfactory and reasonably stable. There are scattered calcified granulomas bilaterally again noted and stable. No pleural effusion. No pneumothorax. Chest wall of grossly unremarkable on this single view IMPRESSION: No pneumonia. Nothing definitely acute Less than optimal inspiration mildly accentuates markings, and contributes to borderline cardiomegaly appearance. Pacemaker overlying the left chest again noted. Dictated by: Carrington William MD 09/07/2019 23:48 Electronically signed by Carrington William MD in [place] 09/07/2019 23:48
--- NOTE | 2019-09-07 18:34 | CT_ITS ---
PROCEDURE: CT HEAD/BRAIN WO CON Patient Age:63Y CLINICAL INDICATION: vertigo. Nausea .. COMPARISON: HDWO CT HEAD W/O CONTRAST from 08/15/[address] head/brain wo con from 12/18/[address] head/brain wo con from 07/26/2018 TECHNIQUE: Routine axial images were obtained. No IV contrast all CT scans at the facility use one or more dose reduction, viz: automated exposure control, ma/kV adjustment per patient size (including targeted exams where dose is matched to indication, i.e. head), or iterative reconstruction technique. FINDINGS: No acute intracranial findings.. Today's study reveals no no intracranial hemorrhage. No hydrocephalus.The ventricles and basal cisterns appear clear and satisfactory. No mass or midline shift nor mass effect. Scant pinpoint calcification right basal ganglia appears physiologic and faintly seen developing on previous studies.. Question possible small vessel deep white-matter changes no subdural or extra-axial fluid collection is evident. mild streak artifact/motion artifact on today's study is most notable towards inferior aspect posterior fossa. This limits images here but overall see no significant change since July 2018. Posterior fossa overall appear stable in satisfactory. Skull intact-mild benign hyperostosis frontalis. Nomastoid effusions. Mastoid air cells are well developed and clear. Middle ear clear. IAC's symmetric. Nosinus air-fluid level. Visualized portions of the paranasal sinuses and orbits unremarkable. IMPRESSION: No acute intracranial findings Head CT stable unchanged since July 2018 Dictated by: Carrington William MD 09/07/2019 19:17 Electronically signed by Carrington William MD in [place] 09/07/2019 19:17
[2019-09-07 18:44] LABS: Basophils # 0.1 K/mm3 (0-0.2); Basophils % 0.5 % (0.1-2.0); Eosinophils # 0.3 K/mm3 (0.0-0.4); Eosinophils % 2.3 % (0.1-12.0); Hematocrit 34.9 % (37.0-47.0); Hemoglobin 11.7 g/dL (12.2-16.2); Lymphocytes # 3.9 K/mm3 (0.7-4.5); Lymphocytes % 35.2 % (10-50); Mean Corpuscular HGB Conc 33.7 g/dL (31.8-35.4); Mean Corpuscular Hemoglobin 29.6 pg (27.0-31.2); Mean Corpuscular Volume 87.9 fl (81-99); Mean Platelet Volume 7.6 fl (7.4-10.4); Monocytes # 0.5 K/mm3 (0.1-1.0); Monocytes % 4.8 % (1.7-9.3); Neutrophils # 6.3 K/mm3 (1.8-7.8); Neutrophils % 57.1 % (37.0-80.0); Platelet Count 367 K/mm3 (142-424); Red Blood Count 3.97 M/mm3 (4.20-5.40); Red Cell Distribution Width 13.5 % (11.5-17.5)
[2019-09-07 18:50] LABS: Alanine Aminotransferase 29 U/L (12-78); Albumin Level 4.2 g/dl (3.5-5.0); Albumin/Globulin Ratio 1.1 (1.1-1.8); Alkaline Phosphatase 107 U/L (38-126); Anion Gap 12.8 mEq/L (5-15); Aspartate Amino Transferase 32 U/L (14-36); Bilirubin,Total 0.3 mg/dl (0.2-1.3); Blood Urea Nitrogen 7 mg/dl (7-17); Calcium 10.4 mg/dl (8.4-10.2); Carbon Dioxide 29 mmol/L (22.0-30.0); Chloride 105 mmol/L (98-107); Creatinine Clearance Estimated 88 mL/min (50-200); Estimated Glomerular Filt Rate 85 ml/min (>60); GFR (African American) 103 ML/MIN (>60); Globulin 3.9 g/dL (1.3-3.2); Glucose 95 mg/dl (74-100); Potassium 3.8 mmoL/L (3.5-5.1); Sodium 143 mmol/L (136-145); Total Protein,Serum 8.1 g/dl (6.3-8.2)
[2019-09-07 19:14] LABS: Troponin I < 0.01 ng/ml (0.00-0.034)
[2019-09-07 19:18] VITALS: BP 144/67; PULSE 73; RESP 16; O2SAT 96
[2019-09-07 20:12] VITALS: BP 122/64; PULSE 70; RESP 16; TEMP 36.9; O2SAT 98
== END 2019-09-07 20:17 | disposition home or self-care (01) ==
PROVIDERS: Emergency Provider Emergency Medicine; PCP Emergency Medicine
DX: R42 Dizziness and giddiness (principal); I25.10 Atherosclerotic heart disease of native coronary artery without angina pectoris; I48.20 Chronic atrial fibrillation, unspecified; J44.9 Chronic obstructive pulmonary disease, unspecified; K21.9 Gastro-esophageal reflux disease without esophagitis; E78.5 Hyperlipidemia, unspecified; I10 Essential (primary) hypertension; F17.210 Nicotine dependence, cigarettes, uncomplicated; Z91.040 Latex allergy status; Z88.2 Allergy status to sulfonamides; Z88.5 Allergy status to narcotic agent; Z95.0 Presence of cardiac pacemaker; Z79.899 Other long term (current) drug therapy
CPT/HCPCS: 70450; 71045; 80053; 84484; 85025; 93005; 96365; 96375; 99284; J2405

== ENCOUNTER → 2019-09-23 16:07 | Outpatient (CLI) | payer MEDICARE, BC, SELFPAY ==
--- NOTE | 2019-09-23 16:07 | MM_ITS ---
PROCEDURE: MM DIG SCREENING MAMM BI W/CAD Digital Breast Tomosynthesis Included CLINICAL INDICATION: screening There is a history of breast cancer patient's sister diagnosed at age 40. COMPARISON: MG DIG MAMM-SCREEN BETH from 09/17/2018 US US BREAST LT COMPLETE from 10/11/2018 MG MM DIG MAMM DX UNILAT LT CAD from 10/11/2018 MG MM DIG MAMM DX UNILAT LT CAD from 04/09/2019 US US BREAST LT COMPLETE from 04/09/2019 TECHNIQUE: Standard CC and MLO images and 3D Tomosynthesis was obtained. R2 CAD reviewed. FINDINGS: Scattered diffuse fibroglandular densities are seen in both breasts. There is a mole marker on each breast. There is a stable small nodular density central portion left breast. There are few scattered benign-appearing microcalcifications in each breast. The nipples are inverted bilaterally. This has been noted previously. There is no new or suspicious lesion in either breast and no suspicious microcalcifications. IMPRESSION: Fibrofatty parenchyma with no suspicious lesions seen BI-RAD Category: 2 Benign Finding(s) FOLLOW-UP: 1YR 1 Year Follow-up (A letter has been sent to the patient regarding results of the study.) Dictated Dr. Gil Willis MD 09/24/2019 12:46 Dr. Gil Hess MD in [place] 09/24/2019 12:46
[2019-09-23 18:11] LABS: Alanine Aminotransferase 28 U/L (12-78); Albumin Level 4.4 g/dl (3.5-5.0); Alkaline Phosphatase 106 U/L (38-126); Aspartate Amino Transferase 31 U/L (14-36); Bilirubin,Direct 0.1 mg/dl (0.0-0.4); Bilirubin,Indirect 0.3 mg/dL (0.0-0.9); Bilirubin,Total 0.4 mg/dl (0.2-1.3); Bilirubin,Unconjugated 0.2 mg/dL (0.0-1.1); Chol/HDL Ratio 4.8 (1-3.5); Cholesterol 225 mg/dl (140-200); HDL Cholesterol 47 mg/dl (40-60); Total Protein,Serum 7.8 g/dl (6.3-8.2); Triglycerides 263 mg/dl (30-150); VLDL Cholesterol 53 mg/dL (0-40)
[2019-09-23 18:22] LABS: Direct LDL Cholesterol 139.38 mg/dL (100-129)
== END ==
PROVIDERS: Nurse Practitioner Family; PCP Emergency Medicine; Visit Provider Emergency Medicine
DX: Z12.31 Encounter for screening mammogram for malignant neoplasm of breast (principal); E78.2 Mixed hyperlipidemia; I25.10 Atherosclerotic heart disease of native coronary artery without angina pectoris
CPT/HCPCS: 36415; 77063; 77067; 80061; 80076

== ENCOUNTER 2020-05-16 13:44 | Emergency (ER) | payer MEDICARE, BC, SELFPAY ==
[2020-05-16 13:44] VITALS: BP 151/71; PULSE 76; RESP 18; TEMP 36.6; O2SAT 96; BMI 38.4
--- NOTE | 2020-05-16 14:01 | CT_ITS ---
Procedure: CT ANGIO NECK CLINICAL HISTORY: Numbness, weakness COMPARISON: CT CT ANGIO HEAD from 05/16/2020 TECHNIQUE: IV Contrast: 100ml Isovue 370 Axial images obtained with sagittal and coronal reformats. All CT scans at the facility use one or more dose reduction, viz: automated exposure control, ma/kV adjustment per patient size (including targeted exams where dose is matched to indication, i.e. head), or iterative reconstruction technique. FINDINGS: CTA neck: Scattered calcific plaque is present within the right brachiocephalic artery and right subclavian artery as well as the ostium the right vertebral artery. Eccentric calcific plaque present in proximal ICAs and bulbs on both sides. No stenotic lesions evident. No evidence ulceration or dissection. Left vertebral artery originates from the aortic arch has a normal variant. No vertebral stenosis occlusion or dissection. Right vertebral dominant. CTA head: There is eccentric calcific plaque within the petrous portion of the right carotid, carotid siphon cavernous portion without significant stenosis. No aneurysm, AVM, or major intracranial occlusive process. PCOM infundibulum I noted bilaterally. No enhancing lesions. Short segment narrowing of the left P1 segment of questionable clinical significance Incidental Fatty infiltration of the parotid glands on both sides which may be seen with chronic cell adenitis. Soft tissue calcification anterior to the right submandibular gland associated denting of the skin which may be related to prior surgery. IMPRESSION: No cervical air intracranial arterial occlusion. Other nonacute findings as described above Dictated by: Albaro Hendrickson MD 05/17/2020 11:45 Albaro Hendrickson MD in [place] 05/17/2020 11:45
--- NOTE | 2020-05-16 14:01 | CT_ITS ---
PROCEDURE: CT HEAD/BRAIN WO CON CLINICAL INDICATION: Numbness, weakness COMPARISON: CT CT HEAD/BRAIN WO CON from 09/07/2019 TECHNIQUE: Axial images obtained. All CT scans at the facility use one or more dose reduction, viz: automated exposure control, ma/kV adjustment per patient size (including targeted exams where dose is matched to indication, i.e. head), or iterative reconstruction technique. FINDINGS: No midline shift, mass effect, intracranial hemorrhage, hydrocephalus, or extra-axial fluid collection is evident. The calvarium appears intact showing evidence of hyperostosis frontalis interna . No mastoid effusion. No sinus air-fluid level. IMPRESSION: No acute intracranial finding Dictated by: Dr. Gil Hess MD 05/16/2020 20:01 Dr. Gil Hess MD in [facility] 05/16/2020 20:01
--- NOTE | 2020-05-16 14:49 | HMH.EDGENADL ---
ED Disposition Clinical Impression: Numbness, Headache Disposition: Home, Self-Care Condition on Discharge: Good Instructions: DI for Chronic Pain -- Adult Additional Instructions: Take Tylenol and ibuprofen as needed for pain relief If symptoms persist or worsen, please follow-up with your PCP or return to the ED for further evaluation Referrals: Luis Eckert MD [Primary Care Provider] - - Critical Care Critical Care Time: No Attestation: On 05/16/20, the high probability of a clinically significant, sudden or life threatening deterioration of the following system(s) required my full and direct attention, intervention and personal management. The time I documented below is in addition to time spent performing reported procedures but includes the following listed in this critical care notation. Medical Decision Making - John Inquiry Pt receiving controlled substance: No Vital Signs: 05/16/20 13:44 05/16/20 16:31 05/16/20 17:01 Temperature 97.9 F Temperature Source Oral Pulse Rate 73 65 Pulse Rate [Left Radial] 76 Respiratory Rate 18 Blood Pressure 123/50 L 114/54 L Blood Pressure [Right Arm] 151/71 H Blood Pressure Mean 78 74 Blood Pressure Mean [Right Arm] 97 Blood Pressure Source Blood Pressure Source [Right Arm] Automatic Cuff Blood Pressure Position Blood Pressure Position [Right Arm] Sitting 02 Sat by Pulse Oximetry 96 97 96 Oxygen Delivery Method Room Air 05/16/20 17:29 Temperature 97.9 F Temperature Source Oral Pulse Rate 63 Pulse Rate [Left Radial] Respiratory Rate 18 Blood Pressure 114/54 L Blood Pressure [Right Arm] Blood Pressure Mean Blood Pressure Mean [Right Arm] Blood Pressure Source Automatic Cuff Blood Pressure Source [Right Arm] Blood Pressure Position Sitting Blood Pressure Position [Right Arm] 02 Sat by Pulse Oximetry Oxygen Delivery Method Room Air - Lab Data Lab Results 05/16/20 14:42: WBC 10.4, RBC 3.78 L, Hgb 10.4 L, Hct 34.5 L, MCV 91.3, MCH 27.4, MCHC 30.0 L, RDW 13.8, Plt Count 373, MPV 7.5, Neut % (Auto) 64.9, Lymph % (Auto) 27.9, [place] % (Auto) 4.3, Eos % (Auto) 2.1, Baso % (Auto) 0.7, Neut # (Auto) 6.8, Lymph # (Auto) 2.9, [place] # (Auto) 0.5, Eos # (Auto) 0.2, Baso # (Auto) 0.1 05/16/20 14:42: Sodium 140, Potassium 4.1, Chloride 106, Carbon Dioxide 30, Anion Gap 8.1, BUN 16, Creatinine 0.80, Estimated Creat Clear 87, Estimated GFR 72, Est GFR ( Amer) 88, Glucose 105 H, Calcium 10.5 H, Total Bilirubin 0.3, AST 26, ALT 18, Alkaline Phosphatase 105, Total Protein 7.7, Albumin 4.2, Globulin 3.5 H, Albumin/Globulin Ratio 1.2 Result diagrams: 05/16/20 14:42 05/16/20 14:42 Orders (Tests/Meds): ED MEDICATIONS Generic Name Dose Route Start Last Admin Trade Name Freq PRN Reason Stop Dose Admin Ibuprofen 600 mg 05/16/20 16:41 05/16/20 16:44 Ibuprofen 600 Mg Tablet PO 06/15/20 16:40 600 mg Q6HP PRN Administration As Needed for Fever or Pain Discontinued Medications Generic Name Dose Route Start Last Admin Trade Name Freq PRN Reason Stop Dose Admin Acetaminophen 1,000 mg 05/16/20 16:41 05/16/20 16:43 Acetaminophen 500mg Tab PO 05/16/20 16:42 1,000 mg ONCE ONE Administration Sodium Chloride 1,000 mls @ 999 mls/hr 05/16/20 14:15 05/16/20 15:25 Sod Chlor 0.9% 1000ml Bag IV 05/16/20 15:15 999 mls/hr .Q1H1M HAROLDO Administration Iopamidol 100 ml 05/16/20 15:47 05/16/20 15:48 Iopamidol-370 (76%);100ml Bottle IV 05/16/20 15:48 100 ml ONCE ONE Administration Sodium Chloride 40 ml 05/16/20 15:47 05/16/20 15:48 0.9% Sodium Chloride 20ml Vial IV 05/16/20 15:48 40 ml ONCE ONE Administration Sodium Chloride 10 ml 05/16/20 15:47 05/16/20 15:48 Sodium Chloride 0.9% 10ml Syr (Rad Only) IV 05/16/20 15:48 10 ml ONCE ONE Administration ORDERS Category Date Time Status CT angio head Stat Cat Scan 05/16/20 14:[address] angio neck Stat Cat Scan 04
[2020-05-16 15:06] LABS: Basophils # 0.1 K/mm3 (0-0.2); Basophils % 0.7 % (0.1-2.0); Eosinophils # 0.2 K/mm3 (0.0-0.4); Eosinophils % 2.1 % (0.1-12.0); Hematocrit 34.5 % (37.0-47.0); Hemoglobin 10.4 g/dL (12.2-16.2); Lymphocytes # 2.9 K/mm3 (0.7-4.5); Lymphocytes % 27.9 % (10-50); Mean Corpuscular Hemoglobin 27.4 pg (27.0-31.2); Mean Corpuscular Volume 91.3 fl (81-99); Mean Platelet Volume 7.5 fl (7.4-10.4); Monocytes # 0.5 K/mm3 (0.1-1.0); Monocytes % 4.3 % (1.7-9.3); Neutrophils # 6.8 K/mm3 (1.8-7.8); Neutrophils % 64.9 % (37.0-80.0); Platelet Count 373 K/mm3 (142-424); Red Blood Count 3.78 M/mm3 (4.20-5.40); Red Cell Distribution Width 13.8 % (11.5-17.5); White Blood Count 10.4 K/mm3 (4.8-10.8)
[2020-05-16 15:08] LABS: Chloride 106 mmol/L (98-107); Potassium 4.1 mmoL/L (3.5-5.1); Sodium 140 mmol/L (136-145)
[2020-05-16 15:10] LABS: Alanine Aminotransferase 18 U/L (12-78); Aspartate Amino Transferase 26 U/L (14-36); Blood Urea Nitrogen 16 mg/dl (7-17); Creatinine Clearance Estimated 87 mL/min (50-200); Estimated Glomerular Filt Rate 72 ml/min (>60); GFR (African American) 88 ML/MIN (>60)
[2020-05-16 15:11] LABS: Albumin Level 4.2 g/dl (3.5-5.0); Albumin/Globulin Ratio 1.2 (1.1-1.8); Alkaline Phosphatase 105 U/L (38-126); Anion Gap 8.1 mEq/L (5-15); Bilirubin,Total 0.3 mg/dl (0.2-1.3); Calcium 10.5 mg/dl (8.4-10.2); Carbon Dioxide 30 mmol/L (22.0-30.0); Globulin 3.5 g/dL (1.3-3.2); Glucose 105 mg/dl (74-100); Total Protein,Serum 7.7 g/dl (6.3-8.2)
[2020-05-16 16:31] VITALS: BP 123/50; PULSE 73; O2SAT 97
[2020-05-16 17:01] VITALS: BP 114/54; PULSE 65; O2SAT 96
[2020-05-16 17:29] VITALS: BP 114/54; PULSE 63; RESP 18; TEMP 36.6; O2SAT 99
== END 2020-05-16 17:30 | disposition home or self-care (01) ==
PROVIDERS: Emergency Provider Emergency Medicine; PCP Emergency Medicine
DX: R20.2 Paresthesia of skin (principal); I48.91 Unspecified atrial fibrillation; J44.9 Chronic obstructive pulmonary disease, unspecified; K21.9 Gastro-esophageal reflux disease without esophagitis; E78.5 Hyperlipidemia, unspecified; I10 Essential (primary) hypertension; Z95.0 Presence of cardiac pacemaker; F17.210 Nicotine dependence, cigarettes, uncomplicated; Z79.899 Other long term (current) drug therapy
CPT/HCPCS: 70450; 70496; 70498; 80053; 85025; 96365; 99282; Q9967

== ENCOUNTER → 2020-05-29 13:15 | Outpatient (CLI) | payer MEDICARE, BC, SELFPAY ==
--- NOTE | 2020-05-29 13:23 | XR_ITS ---
PROCEDURE: XR CHEST 2V CLINICAL HISTORY: rib pain jaden Chest pain COMPARISON: CT AGCHEST CT angio chest from 02/26/2017 CR CXR2V XR chest 2V from 12/18/2017 CR XR CHEST PORTABLE from 04/23/2019 CR XR CHEST PORTABLE from 09/07/2019 FINDINGS: The cardiomediastinal silhouette and pulmonary vascularity are within normal limits. There is a bipolar pacemaker from left subclavian approach. There are bilateral calcified granulomas. No lobar consolidation or collapse. Minimal atelectatic or fibrotic changes are present in the anterior clear space. The No acute bony abnormalities. IMPRESSION: Minimal atelectatic or fibrotic change in the anterior clear space with evidence of old granulomatous disease. Otherwise negative Dictated by: Albaro Hendrickson MD 05/29/2020 18:03 Albaro Hendrickson MD in [place] 05/29/2020 18:03
== END ==
PROVIDERS: PCP Nurse Practitioner Family; Visit Provider Nurse Practitioner Family
DX: R07.81 Pleurodynia (principal)
CPT/HCPCS: 71046

== ENCOUNTER → 2020-06-04 15:05 | Outpatient (CLI) | payer MEDICARE, BC, SELFPAY ==
--- NOTE | 2020-06-04 15:08 | CA_ITS ---
APPROVED REPORT Right Lower Extremity Venous Study for DVT. Cabinet Installer: Ceci Schafer RVT Indications Lower Extremity Pain: Right Lower Extremity Edema: Right edema Medications Aspirin Vein Imaging CFV (R): compressive, spontaneous, phasic, augmentation FEM (R): compressive, spontaneous, phasic, augmentation POP (R): compressive, spontaneous, phasic, augmentation PTV (R): Compressible GSV (R): Compressible Peroneals (R):Compressible GAS (R): Compressible Findings Study suggests no evidence of DVT of the right lower extremity. Study suggests no evidence of SVT of the right lower extremity. Conclusion Study suggests no evidence of DVT of the right lower extremity. Study suggests no evidence of SVT of the right lower extremity. Critical Notification Date: 06/04/2020 Time: 15:39 [facility] Electronically signed by : Albaro Hendrickson MD 06/04/2020 16:53:28
== END ==
PROVIDERS: PCP Emergency Medicine; Visit Provider Internal Medicine Cardiovascular Disease
DX: R60.0 Localized edema (principal)
CPT/HCPCS: 93971

== ENCOUNTER → 2020-06-16 14:29 | Outpatient (CLI) | payer MEDICARE, BC, SELFPAY ==
--- NOTE | 2020-06-16 14:33 | CA_ITS ---
APPROVED REPORT EXAM: Comprehensive 2D, Doppler, and color-flow Echocardiogram Cloth Dyer: Ceci Schafer RVT Ht: 5 ft 2 in Wt: 221lbs BSA: 1.99 BP: 123/58 mmHg Indications: SOA,COPD,PALPS,HTN,HLD,EDEMA,A-FIB,CAD,SMOKER,OBESITY 2D Dimensions LVOT 2.65 cm (M/F) 1.5-2.5 LA Volume 29.00 mL LA Volume Index 14.57 mL/m2 (M/F) 16-34 M-Mode Dimensions RVDd 3.56 cm (0.9-2.6) LA Diam 3.77 cm (1.9-4.0) LVDd 4.49 cm (3.5-5.7) Ao Diam 2.72 cm (2.0-3.7) LVDs 3.35 cm (3.5-5.7) IVSd 0.85 cm (0.6-1.1) PWd 0.85 cm (0.6-1.1) EF (Teich) 50.20% FS 25.40% EDV (Teich) 92.00 mL TAPSE 1.52 (<1.7) ESV (Teich) 45.80 mL LV Diastology E Decel Time 150.00 (160-240 msec) E/A Ratio 1.1 MED E' 7.40 (< 7 cm/sec) E'/MED E' Ratio 11.03 (>14) LAT E' 10.90 (<10 cm/sec) E/LAT E' Ratio 7.49 (>14) Aortic Valve AO Peak GR. 7.80 mmHg Mitral Valve MV E Max Shane. 82.00 (40-130 cm/s) MV A Velocity 76.00 (40-130 cm/s) E/A Ratio 1.07 MV Decel. Time 150.00 (160-240 ms) MV PHT 44.00 ms Pulmonary Valve PV Peak Velocity 84.00 (50-150 cm/s) Tricuspid Valve TR P. Velocity 314.00 cm/s RAP Estimate 10.00 mmHg RVSP 49.50 mmHg Left Ventricle Left atrium is mildly enlarged, left ventricle is normal size, mild concentric left ventricular hypertrophy, visually estimated ejection fraction 55% with no regional wall motion abnormality, grade 1 diastolic dysfunction seen without tissue Doppler evidence of raise left atrial pressure. Right Ventricle Right atrium and right ventricle moderately enlarged with normal contractility. Aortic Valve Aortic valve is minimally thickened and fibrosed, there is no aortic stenosis or aortic insufficiency. Mitral Valve Mitral valve is grossly normal, there is trace mitral regurgitation. Tricuspid Valve Tricuspid grossly normal, there is mild tricuspid regurgitation, calculated right ventricular systolic pressure is 49 mmHg. Pulmonic Valve Pulmonic valve is poorly visualized. Great Vessels Aortic root is normal size. Pericardium No significant pericardial effusion noted. Conclusion 1. Biatrial enlargement, normal left ventricular size, mild concentric left ventricular hypertrophy, visually estimated ejection fraction 55% with no regional wall motion abnormality, grade 1 diastolic dysfunction seen without tissue Doppler evidence of raise left atrial pressure. 2. Moderately enlarged right ventricle with normal contractility. 3. Trace mitral and mild tricuspid regurgitation, calculated right ventricular systolic pressure is 49 mmHg. 4. No significant pericardial effusion noted. Electronically signed by : Adolph Graham, 06/16/2020 19:07:12
== END ==
PROVIDERS: PCP Emergency Medicine; Visit Provider Internal Medicine Cardiovascular Disease
DX: I25.10 Atherosclerotic heart disease of native coronary artery without angina pectoris (principal); I34.0 Nonrheumatic mitral (valve) insufficiency; J44.9 Chronic obstructive pulmonary disease, unspecified; R00.2 Palpitations; R06.00 Dyspnea, unspecified
CPT/HCPCS: 93306

== ENCOUNTER → 2020-07-02 14:21 | Outpatient (CLI) | payer MEDICARE, BC, SELFPAY ==
[2020-07-02 15:11] LABS: Anion Gap 10.7 mEq/L (5-15); Blood Urea Nitrogen 10 mg/dl (7-17); Calcium 9.5 mg/dl (8.4-10.2); Carbon Dioxide 30 mmol/L (22.0-30.0); Chloride 104 mmol/L (98-107); Estimated Glomerular Filt Rate 63 ml/min (>60); GFR (African American) 77 ML/MIN (>60); Glucose 95 mg/dl (74-100); Potassium 4.7 mmoL/L (3.5-5.1); Sodium 140 mmol/L (136-145)
[2020-07-02 15:21] LABS: NT Pro Brain Natriuretic Pep. 101 pg/mL (0-125)
== END ==
PROVIDERS: Visit Provider Internal Medicine Cardiovascular Disease
DX: E78.5 Hyperlipidemia, unspecified (principal); I11.0 Hypertensive heart disease with heart failure; I25.10 Atherosclerotic heart disease of native coronary artery without angina pectoris; I34.0 Nonrheumatic mitral (valve) insufficiency; J44.9 Chronic obstructive pulmonary disease, unspecified; R06.00 Dyspnea, unspecified; Z72.0 Tobacco use; I50.9 Heart failure, unspecified
CPT/HCPCS: 36415; 80048; 83880

== ENCOUNTER → 2020-10-29 17:20 | Outpatient (CLI) | payer MEDICARE, BC, SELFPAY | PROVIDERS: Visit Provider Physician Assistant | DX: R05 Cough (principal); Z20.822 Contact with and (suspected) exposure to COVID-19 | CPT/HCPCS: C9803; U0003; U0005 ==

== ENCOUNTER 2020-11-06 19:57 | Emergency (ER) | payer MEDICARE, BC, SELFPAY ==
[2020-11-06 20:22] VITALS: BP 136/65; PULSE 76; RESP 22; TEMP 36.8; O2SAT 97; BMI 39.3
[2020-11-06 20:45] VITALS: BP 136/65; PULSE 76; RESP 22; TEMP 36.8; O2SAT 97; BMI 39.5
--- NOTE | 2020-11-06 21:11 | HMH.EDUTC ---
[facility] [place] Clinical Impression: Right leg pain, Right leg swelling Disposition: Home, Self-Care Condition on Discharge: Good Additional Instructions: Go home and rest. It would be best if you rested tomorrow too. You will have a venous doppler in the morning here at this hospital. They will call you in the morning with a time. Follow up with your regular doctor. GO TO THE ER FOR ANY WORSENING SYMPTOMS OR CONCERN, Referrals: Luis Eckert MD [Primary Care Provider] - Time of Disposition: 22:13 Medical Decision Making - Medical Records Medical records reviewed: No: I reviewed the patient's medical records. - John Inquiry Pt receiving controlled substance: No Vital Signs: 11/06/20 20:22 11/06/20 20:45 11/06/20 22:13 Temperature 98.2 F 98.2 F 98.2 F Temperature Source Oral Oral Pulse Rate 76 Pulse Rate [Right Brachial] 76 76 Respiratory Rate 22 22 22 Blood Pressure 136/65 Blood Pressure [Right Arm] 136/65 136/65 Blood Pressure Mean [Right Arm] 88 88 Blood Pressure Source [Right Arm] Automatic Cuff Automatic Cuff Blood Pressure Position [Right Arm] Sitting Sitting 02 Sat by Pulse Oximetry 97 97 Oxygen Delivery Method Room Air Room Air Orders (Tests/Meds): ED MEDICATIONS Discontinued Medications Generic Name Dose Route Start Last Admin Trade Name Abel PRN Reason Stop Dose Admin Ketorolac Tromethamine 60 mg 11/06/20 22:04 11/06/20 22:10 Ketorolac 60mg/2ml Vial IM 11/06/20 22:05 60 mg ONCE ONE Administration Methylprednisolone Sodium Succinate 125 mg 11/06/20 22:04 11/06/20 22:10 Methylprednisolone Sod Succ 125mg Vial IM 11/06/20 22:05 125 mg ONCE ONE Administration [facility] [place] - General Stated complaint: pAIN RIGHT LEG Time Seen by Provider: 11/06/20 21:11 Mode of Arrival: Ambulatory Source of Information: Patient Limitations: No Limitations Description of Symptoms (Recalled from Triage Doc. by RN): PATIENT C/O PAIN TO RIGHT LOWER LEG FROM KNEE TO ANKLE. NO KNOWN INJURY HEENT Symptoms (Recalled from RN notes): No Resp Symptoms (Recalled from RN notes): No Skin Symptoms (Recalled from RN notes): No MS Symptoms (Recalled from RN notes): Yes Functional Status (Recalled from RN notes): WNL - History of Present Illness Provider Complaint: she is having right lower leg pain for the past 3 days. She denies any injury. She deneis any previous history of similar pain. She denies any personal or family history of blood clots, but she is worried about having a blood clot. - Related Data Home Medications Medication Instructions Recorded Confirmed Calcium Carbonate 1,200 mg PO DAILY 02/27/17 10/29/20 aspirin 81 mg tablet,delayed 81 mg PO DAILY 11/22/19 10/29/20 release Previous Rx's Medication Instructions Recorded Promethazine HCl [Phenergan 25mg 25 mg PO Q6H PRN #20 tab 07/11/18 tab] metoprolol succinate 50 mg 75 mg PO DAILY #135 tab 01/30/20 tablet,extended release 24 hr spironolactone 50 mg tablet 50 mg PO DAILY #30 tab 06/04/20 lisinopril 5 mg tablet See Rx Instructions .ROUTE 07/27/20 .COMPLEX #90 tab meclizine 25 mg tablet See Rx Instructions .ROUTE 07/27/20 .COMPLEX #30 tab pantoprazole 40 mg tablet,delayed See Rx Instructions .ROUTE 09/08/20 release .COMPLEX #90 tab atorvastatin 40 mg tablet See Rx Instructions .ROUTE 09/16/20 .COMPLEX #90 tablet albuterol sulfate 1.25 mg/3 mL 1.25 mg INHALATION QID PRN #90 ml 10/29/20 solution for nebulization doxycycline hyclate 100 mg tablet 100 mg PO BID #20 tab 10/29/20 guaifenesin 1,200 mg tablet, 1,200 mg PO BID #20 tab 10/29/20 extended release 12 hr prednisone 20 mg tablet 20 mg PO BID #10 tab 10/29/20 Allergies Allergy/AdvReac Type Severity Reaction Status Date / Time latex [LATEX] Allergy Intermediate I-RASH Verified 10/29/20 15:22 codeine [CODEINE] Allergy Mild NA-NAUSEA, Verified 10/29/20 15:22 CHEST PRESSURE tuberculin,PPD,multi-
--- NOTE | 2020-11-06 21:35 | PC.NURSE ---
MEASURED PATIENT'S CALVES AT THIS TIME. RLE IS 43 CM; LLE IS 40 CM.
[2020-11-06 22:13] VITALS: BP 136/65; PULSE 76; RESP 22; TEMP 36.8; O2SAT 97
== END 2020-11-06 22:21 | disposition home or self-care (01) ==
PROVIDERS: Emergency Provider Nurse Practitioner Family; PCP Emergency Medicine
DX: M79.604 Pain in right leg (principal); M79.89 Other specified soft tissue disorders; I48.91 Unspecified atrial fibrillation; J44.9 Chronic obstructive pulmonary disease, unspecified; K21.9 Gastro-esophageal reflux disease without esophagitis; I10 Essential (primary) hypertension; E78.5 Hyperlipidemia, unspecified; Z95.0 Presence of cardiac pacemaker; Z88.2 Allergy status to sulfonamides
CPT/HCPCS: G0463; 96372; 99202

== ENCOUNTER → 2020-11-07 15:05 | Outpatient (CLI) | payer MEDICARE, BC, SELFPAY ==
--- NOTE | 2020-11-07 | CA_ITS ---
APPROVED REPORT Right Lower Extremity Venous Study for DVT. Service Person: CT Indications Lower Extremity Pain: Right Current Smoker Risk Factors Obesity Vein Imaging CFV (R): compressive, spontaneous, phasic, augmentation SFJ (R): compressive, spontaneous, phasic, augmentation FEM (R): compressive, spontaneous, phasic, augmentation POP (R): compressive, spontaneous, phasic, augmentation DFV (R): compressive, spontaneous, phasic, augmentation PTV (R): compressive, spontaneous, phasic, augmentation GSV (R): compressive, spontaneous, phasic, augmentation Peroneals (R):compressive, spontaneous, phasic, augmentation GAS (R): compressive, spontaneous, phasic, augmentation Findings RLE negative for DVT/SVT. Vessels fully compressible No reflux noted Conclusion RLE negative for DVT/SVT. Vessels fully compressible No reflux noted Electronically signed by : Albaro Hendrickson MD 11/09/2020 15:32:04
== END ==
PROVIDERS: PCP Emergency Medicine; Visit Provider Nurse Practitioner Family
DX: M79.604 Pain in right leg (principal); R60.0 Localized edema
CPT/HCPCS: 93971

== ENCOUNTER → 2021-01-20 15:20 | Outpatient (CLI) | payer MEDICARE, BC, SELFPAY ==
--- NOTE | 2021-01-20 15:21 | MM_ITS ---
PROCEDURE INFORMATION: Exam: MG Bilateral Screening 3D Mammography Exam date and time: 01/20/2021 3:21 PM Age: 65 years old Clinical indication: Encounter for screening mammogram for malignant neoplasm of breast TECHNIQUE: Imaging protocol: Bilateral screening tomosynthesis and 2D mammography including computer-aided detection (CAD) when performed. COMPARISON: 1. MG MM DIG SCREENING MAMM BI W/CAD 09/23/2019 4:23 PM 2. MG MM DIG MAMM DX UNILAT LT CAD 04/09/2019 2:45 PM FINDINGS: MAMMOGRAPHY: Breast composition: The breast tissue is composed of scattered areas of fibroglandular density. Mass: None. Architectural distortion: None. Calcifications: No suspicious calcifications. Asymmetric density: None. Skin thickening: None. Axillary adenopathy: None. IMPRESSION: No mammographic evidence of malignancy. Annual screening is recommended unless otherwise clinically indicated. ASSESSMENT: BI-RADS Category 1: Negative
== END ==
PROVIDERS: PCP Nurse Practitioner Family; Visit Provider Nurse Practitioner Family
DX: Z12.31 Encounter for screening mammogram for malignant neoplasm of breast (principal)
CPT/HCPCS: 77063; 77067

== ENCOUNTER → 2021-03-05 14:38 | Outpatient (CLI) | payer MEDICARE, BC, SELFPAY ==
[2021-03-05 16:03] LABS: Alanine Aminotransferase 19 U/L (12-78); Albumin Level 4.3 g/dl (3.5-5.0); Alkaline Phosphatase 98 U/L (38-126); Aspartate Amino Transferase 28 U/L (14-36); Bilirubin,Direct 0.1 mg/dl (0.0-0.4); Bilirubin,Indirect 0.3 mg/dL (0.0-0.9); Bilirubin,Total 0.4 mg/dl (0.2-1.3); Bilirubin,Unconjugated 0.3 mg/dL (0.0-1.1); Chol/HDL Ratio 5.2 (1-3.5); Cholesterol 160 mg/dl (140-200); HDL Cholesterol 31 mg/dl (40-60); Total Protein,Serum 7.5 g/dl (6.3-8.2); Triglycerides 218 mg/dl (30-150); VLDL Cholesterol 44 mg/dL (0-40)
[2021-03-05 16:15] LABS: Direct LDL Cholesterol 95.62 mg/dL (100-129)
== END ==
PROVIDERS: PCP Emergency Medicine; Visit Provider Internal Medicine Cardiovascular Disease
DX: E78.2 Mixed hyperlipidemia (principal); I10 Essential (primary) hypertension; I25.10 Atherosclerotic heart disease of native coronary artery without angina pectoris; I34.0 Nonrheumatic mitral (valve) insufficiency; Z95.0 Presence of cardiac pacemaker
CPT/HCPCS: 36415; 80061; 80076

== ENCOUNTER → 2021-06-25 09:20 | Outpatient (CLI) | payer MEDICARE, BC, SELFPAY ==
[2021-06-25 17:08] LABS: Basophils # 0.1 K/mm3 (0-0.2); Basophils % 0.7 % (0.1-2.0); Eosinophils # 0.3 K/mm3 (0.0-0.4); Eosinophils % 2.1 % (0.1-12.0); Hematocrit 35.3 % (37.0-47.0); Hemoglobin 11.4 g/dL (12.2-16.2); Lymphocytes # 3.8 K/mm3 (0.7-4.5); Lymphocytes % 28.2 % (10-50); Mean Corpuscular HGB Conc 32.4 g/dL (31.8-35.4); Mean Corpuscular Hemoglobin 29.1 pg (27.0-31.2); Mean Platelet Volume 9.4 fl (7.4-10.4); Monocytes # 0.6 K/mm3 (0.1-1.0); Monocytes % 4.8 % (1.7-9.3); Neutrophils # 8.6 K/mm3 (1.8-7.8); Neutrophils % 64.2 % (37.0-80.0); Platelet Count 529 K/mm3 (142-424); Red Blood Count 3.92 M/mm3 (4.20-5.40); Red Cell Distribution Width 14.6 % (11.5-17.5); White Blood Count 13.4 K/mm3 (4.8-10.8)
[2021-06-25 17:13] LABS: Alanine Aminotransferase 20 U/L (12-78); Albumin Level 4.1 g/dl (3.5-5.0); Albumin/Globulin Ratio 1.4 (1.1-1.8); Alkaline Phosphatase 112 U/L (38-126); Anion Gap 12.1 mEq/L (5-15); Aspartate Amino Transferase 28 U/L (14-36); Blood Urea Nitrogen 14 mg/dl (7-17); Calcium 9.9 mg/dl (8.4-10.2); Carbon Dioxide 29 mmol/L (22.0-30.0); Chloride 103 mmol/L (98-107); Chol/HDL Ratio 5.2 (1-3.5); Cholesterol 157 mg/dl (140-200); Estimated Glomerular Filt Rate 63 ml/min (>60); GFR (African American) 76 ML/MIN (>60); Glucose 107 mg/dl (74-100); HDL Cholesterol 30 mg/dl (40-60); Potassium 4.1 mmoL/L (3.5-5.1); Sodium 140 mmol/L (136-145); Total Protein,Serum 7.1 g/dl (6.3-8.2); Triglycerides 251 mg/dl (30-150); VLDL Cholesterol 50 mg/dL (0-40)
[2021-06-25 17:15] LABS: Bilirubin,Total 0.1 mg/dl (0.2-1.3)
[2021-06-25 17:24] LABS: Direct LDL Cholesterol 81.13 mg/dL (100-129)
[2021-06-25 17:30] LABS: 25-OH Vitamin D, Total 32.7 ng/mL (30-100)
[2021-06-25 17:31] LABS: T4 (Thyroxine) 11.1 ug/dl (5.53-11.0)
[2021-06-25 17:44] LABS: Thyroid Stimulating Hormone 1.14 uIU/mL (0.465-4.68)
== END ==
PROVIDERS: PCP Nurse Practitioner Family; Visit Provider Nurse Practitioner Family
DX: I25.10 Atherosclerotic heart disease of native coronary artery without angina pectoris (principal); M25.561 Pain in right knee; Z00.00 Encounter for general adult medical examination without abnormal findings; R20.0 Anesthesia of skin; E66.9 Obesity, unspecified; Z68.39 Body mass index [BMI] 39.0-39.9, adult
CPT/HCPCS: 80053; 80061; 82306; 84436; 84443; 85025

== ENCOUNTER → 2021-06-30 13:16 | Outpatient (CLI) | payer MEDICARE, BC, SELFPAY ==
--- NOTE | 2021-06-30 13:22 | XR_ITS ---
FINAL REPORT CLINICAL HISTORY: knee pain FINDINGS: Three views of the right knee reveal no evidence of fracture or dislocation. The bony alignment is normal. The joint spaces are preserved. There is no evidence of joint effusion. No localized soft tissue abnormality is identified. IMPRESSION: No acute abnormality identified. Reviewed, Interpreted and Dictated by Mina Rivero III, MD Transcribed by Heide Louie Authenticated by Mina Rivero III, MD on 06/30/2021 03:44:17 PM [facility]
== END ==
PROVIDERS: PCP Nurse Practitioner Family; Visit Provider Nurse Practitioner Family
DX: M25.561 Pain in right knee (principal)
CPT/HCPCS: 73562

== ENCOUNTER → 2021-07-02 09:29 | Outpatient (CLI) | payer MEDICARE, BC, SELFPAY ==
[2021-07-02 10:24] LABS: Hemoglobin A1C 5.6 % (4.0-6.0)
== END ==
PROVIDERS: Visit Provider Nurse Practitioner Family
DX: R73.09 Other abnormal glucose (principal)
CPT/HCPCS: 36415; 83036

== ENCOUNTER → 2021-08-03 11:51 | Outpatient (CLI) | payer MEDICARE, BC, SELFPAY ==
--- NOTE | 2021-08-03 12:01 | XR_ITS ---
FINAL REPORT CLINICAL HISTORY: knee pain COMPARISON: June 30, 2021 FINDINGS: RIGHT KNEE 3 views of the right knee were obtained. There is no acute fracture or dislocation. There is mild degenerative change. Soft tissues are unremarkable. IMPRESSION: Mild degenerative change with no acute bony abnormality. Reviewed, Interpreted and Dictated by Mina Rivero III, MD Transcribed by Luz Elena Nguyen Authenticated and [facility]
== END ==
PROVIDERS: PCP Emergency Medicine; Visit Provider Orthopaedic Surgery
DX: M25.561 Pain in right knee (principal)
CPT/HCPCS: 73564

== ENCOUNTER → 2021-08-23 12:17 | Outpatient (CLI) | payer MEDICARE, BC, SELFPAY ==
--- NOTE | 2021-08-23 12:27 | XR_ITS ---
FINAL REPORT CLINICAL HISTORY: hip pain FINDINGS: 2 views of the right hip and an AP pelvis were obtained. There is no acute fracture or dislocation. The joint spaces are intact. There are no soft tissue abnormalities. IMPRESSION: No acute process. Reviewed, Interpreted and Dictated by Arthur Spain MD Transcribed by James Rodas Authenticated and [facility]
== END ==
PROVIDERS: PCP Emergency Medicine; Visit Provider Orthopaedic Surgery
DX: M25.551 Pain in right hip (principal)
CPT/HCPCS: 73502

== ENCOUNTER 2021-09-24 21:01 | Emergency (ER) | payer MEDICARE, BC, SELFPAY ==
[2021-09-24 20:35] VITALS: BP 111/44; PULSE 77; RESP 20; TEMP 36.4; O2SAT 98; BMI 39.6
--- NOTE | 2021-09-24 20:55 | ECG_ITS ---
APPROVED REPORT Exam: Resting ECG HR:74 bpm ECG Measurements Heart Rate 74 AXES MI 178 P 43 QRSd 96 QRS 58 QT 346 T 57 QTc 373 Conclusion SINUS RHYTHM NONSPECIFIC ST & T-WAVE ABNORMALITY BORDERLINE ECG INTERPRETATION BASED ON A DEFAULT AGE OF 40 YEARS UNCONFIRMED REPORT Electronically signed by : Xavi Sosa MD 09/25/2021 08:12:44
[2021-09-24 21:01] VITALS: BP 129/49; PULSE 71; RESP 15; O2SAT 96
--- NOTE | 2021-09-24 21:05 | CT_ITS ---
PROCEDURE INFORMATION: Exam: CT Abdomen And Pelvis With Contrast Exam date and time: 09/24/2021 10:16 PM Age: 65 years old Clinical indication: Abdominal pain; Generalized; Additional info: Abdominal pain, constipated, hemorhoids TECHNIQUE: Imaging protocol: Computed tomography of the abdomen and pelvis with contrast. Radiation optimization: All CT scans at this facility use at least one of these dose optimization techniques: automated exposure control; mA and/or kV adjustment per patient size (includes targeted exams where dose is matched to clinical indication); or iterative reconstruction. Contrast material: ISOVUE; Contrast volume: 75 ml; Contrast route: IV; COMPARISON: ABDPELW CT abdomen pelvis w con 02/26/2017 9:24 AM FINDINGS: Tubes, catheters and devices: Pacemaker leads are noted. Lungs: Mild scarring and atelectasis in the lower lungs. Heart: Coronary artery calcifications. Liver: Normal. No mass. Gallbladder and bile ducts: Distended gallbladder with calcified gallstones. Pancreas: Normal. No ductal dilation. Spleen: Normal. No splenomegaly. Adrenal glands: Normal. No mass. Kidneys and ureters: Low attenuation renal lesions measuring up to 3.2 cm in diameter are incompletely characterized, but are likely cysts. No followup imaging is warranted. Stomach and bowel: Large stool in the rectum. Duodenal diverticula. Appendix: Unremarkable appendix. Intraperitoneal space: Unremarkable. No free air. No significant fluid collection. Vasculature: The arteries demonstrate moderate atherosclerotic disease. Lymph nodes: Unremarkable. No enlarged lymph nodes. Urinary bladder: Moderate to marked urinary bladder distention. Reproductive: Status post hysterectomy. Bones/joints: Unremarkable. No acute fracture. Soft tissues: Tiny fat containing umbilical hernia. Other findings: Stigmata of old granulomatous disease. IMPRESSION: 1. Large stool in the rectum. The appearance on sagittal images suggests possible rectocele. Please exclude fecal impaction and correlate for evidence of pelvic floor dysfunction. 2. Moderate to marked urinary bladder distention. 3. Distended gallbladder with calcified gallstones. COMMENTS: Consistent with the [employer]'s Incidental Findings Committee white paper (J Am Teresa Radiol 2018): Any incidental renal lesion less than 1 cm or classified as too small to characterize, or any incidental cystic renal lesion characterized as simple-appearing, is likely benign. No follow-up imaging is recommended for these lesions per consensus recommendations based on imaging criteria.
--- NOTE | 2021-09-24 21:06 | HMH.EDNVD ---
ED Disposition Clinical Impression: Fecal impaction in rectum, Acute urinary retention Cholelithiasis Qualifiers: Cholelithiasis location: gallbladder Cholecystitis presence: without cholecystitis Biliary obstruction: without biliary obstruction Qualified Code(s): K80.20 - Calculus of gallbladder without cholecystitis without obstruction Disposition: Home, Self-Care Condition on Discharge: Good Instructions: DI for Constipation Additional Instructions: fluids and use meds and stop calcium Prescriptions: polyethylene glycoL 3350 [Miralax 17gm Packet] 17 gm PO DAILY #30 packet Transmission Status: Pending to [id number] Referrals: Provider,Referral, [Referring] - - Critical Care Critical Care Time: No Attestation: On 09/24/21, the high probability of a clinically significant, sudden or life threatening deterioration of the following system(s) required my full and direct attention, intervention and personal management. The time I documented below is in addition to time spent performing reported procedures but includes the following listed in this critical care notation. Medical Decision Making - Medical Records Medical records reviewed: Yes: I reviewed the patient's medical records. - John Inquiry Pt receiving controlled substance: No Vital Signs: 09/24/21 20:35 09/24/21 21:01 09/24/21 21:31 Temperature 97.6 F Temperature Source Oral Pulse Rate 71 83 Pulse Rate [Left] 77 Respiratory Rate 20 15 Blood Pressure 129/49 L 127/56 L Blood Pressure [Right Arm] 111/44 L Blood Pressure Mean 75 79 Blood Pressure Mean [Right Arm] 66 02 Sat by Pulse Oximetry 98 96 98 Oxygen Delivery Method Nasal Cannula Oxygen Flow Rate (LPM) 2 09/24/21 22:01 Temperature Temperature Source Pulse Rate 96 H Pulse Rate [Left] Respiratory Rate Blood Pressure 117/58 L Blood Pressure [Right Arm] Blood Pressure Mean 77 Blood Pressure Mean [Right Arm] 02 Sat by Pulse Oximetry 98 Oxygen Delivery Method Oxygen Flow Rate (LPM) - Lab Data Lab results reviewed: Yes: I reviewed the patient's lab results. Lab Results 09/24/21 20:49: WBC 13.9 H, RBC 3.92 L, Hgb 10.9 L, Hct 35.1 L, MCV 89.5, MCH 27.8, MCHC 31.0 L, RDW 14.6, Plt Count 425 H, MPV 7.9, Neut % (Auto) 79.5, Lymph % (Auto) 15.5, [place] % (Auto) 3.4, Eos % (Auto) 1.1, Baso % (Auto) 0.5, Neut # (Auto) 11.1 H, Lymph # (Auto) 2.2, [place] # (Auto) 0.5, Eos # (Auto) 0.2, Baso # (Auto) 0.1 09/24/21 20:49: Sodium 138, Potassium 4.5, Chloride 101, Carbon Dioxide 29, Anion Gap 12.5, BUN 12, Creatinine 1.00, Estimated Creat Clear 88, Estimated GFR 56 L, Est GFR ( Amer) 68, Glucose 109 H, Calcium 10.1, Total Bilirubin 0.2, AST 30, ALT 26, Alkaline Phosphatase 131 H, Troponin I < 0.01, Total Protein 7.6, Albumin 4.0, Globulin 3.6 H, Albumin/Globulin Ratio 1.1, Amylase 79, Lipase 198 09/24/21 23:30: Urine Color Yellow, Urine Appearance Clear, Urine pH 6.0, Ur Specific Cecil <= 1.005, Urine Protein Negative, Urine Glucose (UA) Negative, Urine Ketones Negative, Urine Blood Negative, Urine Nitrate Negative, Urine Bilirubin Negative, Urine Urobilinogen 0.2, Ur Leukocyte Esterase Negative, Urine RBC None, Urine WBC Occasional, Ur Squamous Epith Cells None, Urine Bacteria None Result diagrams: 09/24/21 20:49 09/24/21 20:49 Orders (Tests/Meds): ED MEDICATIONS Generic Name Dose Route Start Last Admin Trade Name Freq PRN Reason Stop Dose Admin Sodium Chloride 8 ml 09/24/21 21:07 Sodium Chloride 0.9% 10ml Vial IV 10/24/21 21:06 NEEDED PRN dilute pepcid Discontinued Medications Generic Name Dose Route Start Last Admin Trade Name Freq PRN Reason Stop Dose Admin Bisacodyl 10 mg 09/24/21 23:26 09/24/21 23:28 Bisacodyl 10mg Supp RC 09/24/21 23:27 10 mg ONCE ONE Administration Famotidine 20 mg 09/24/21 21:07 09/24/21 21:15 Famotidine 20mg/2ml Vial IV 09/24/21 21:08 20 mg ONCE ONE Administration
--- NOTE | 2021-09-24 21:07 | XR_ITS ---
PROCEDURE INFORMATION: Exam: XR Chest Exam date and time: 09/24/2021 10:05 PM Age: 65 years old Clinical indication: Shortness of breath and other: Upper abdomen pain, SOB; Additional info: Upper abdominal pain SOB TECHNIQUE: Imaging protocol: Radiologic exam of the chest. Views: 2 views. COMPARISON: CR XR CHEST 2V 05/29/2020 1:26 PM FINDINGS: Tubes, catheters and devices: Unchanged pacemaker leads. Vascular calcifications. Lungs: Right lung granulomas. Pleural spaces: Unremarkable. No pleural effusion. No pneumothorax. Heart/Mediastinum: Unremarkable. No cardiomegaly. Bones/joints: Unremarkable. IMPRESSION: No acute findings.
[2021-09-24 21:16] LABS: Basophils # 0.1 K/mm3 (0-0.2); Basophils % 0.5 % (0.1-2.0); Eosinophils # 0.2 K/mm3 (0.0-0.4); Eosinophils % 1.1 % (0.1-12.0); Hematocrit 35.1 % (37.0-47.0); Hemoglobin 10.9 g/dL (12.2-16.2); Lymphocytes # 2.2 K/mm3 (0.7-4.5); Lymphocytes % 15.5 % (10-50); Mean Corpuscular Hemoglobin 27.8 pg (27.0-31.2); Mean Corpuscular Volume 89.5 fl (81-99); Mean Platelet Volume 7.9 fl (7.4-10.4); Monocytes # 0.5 K/mm3 (0.1-1.0); Monocytes % 3.4 % (1.7-9.3); Neutrophils # 11.1 K/mm3 (1.8-7.8); Neutrophils % 79.5 % (37.0-80.0); Platelet Count 425 K/mm3 (142-424); Red Blood Count 3.92 M/mm3 (4.20-5.40); Red Cell Distribution Width 14.6 % (11.5-17.5); White Blood Count 13.9 K/mm3 (4.8-10.8)
[2021-09-24 21:20] LABS: Alanine Aminotransferase 26 U/L (12-78); Albumin/Globulin Ratio 1.1 (1.1-1.8); Alkaline Phosphatase 131 U/L (38-126); Amylase 79 U/L (30-110); Anion Gap 12.5 mEq/L (5-15); Aspartate Amino Transferase 30 U/L (14-36); Bilirubin,Total 0.2 mg/dl (0.2-1.3); Blood Urea Nitrogen 12 mg/dl (7-17); Calcium 10.1 mg/dl (8.4-10.2); Carbon Dioxide 29 mmol/L (22.0-30.0); Chloride 101 mmol/L (98-107); Creatinine Clearance Estimated 88 mL/min (50-200); Estimated Glomerular Filt Rate 56 ml/min (>60); GFR (African American) 68 ML/MIN (>60); Globulin 3.6 g/dL (1.3-3.2); Glucose 109 mg/dl (74-100); Lipase 198 U/L (23-300); Potassium 4.5 mmoL/L (3.5-5.1); Sodium 138 mmol/L (136-145); Total Protein,Serum 7.6 g/dl (6.3-8.2)
[2021-09-24 21:31] VITALS: BP 127/56; PULSE 83; O2SAT 98
[2021-09-24 21:32] LABS: Troponin I < 0.01 ng/ml (0.00-0.034)
[2021-09-24 22:01] VITALS: BP 117/58; PULSE 96; O2SAT 98
--- NOTE | 2021-09-24 22:04 | PC.NURSE ---
pt has small BM per [facility] @ this time
[2021-09-24 23:36] LABS: Microscopic, Urine URINE MICROSCOPIC (MICROSCOPIC)
[2021-09-24 23:37] LABS: Appearance,Urine CLEAR (Clear); Bilirubin,Urine Negative (Negative); Blood, Urine Negative (Negative); Color,Urine YELLOW (Yellow); Glucose,Urine (UA) Negative (Negative); Ketones,Urine Negative (Negative); Leukocyte Esterase,Urine Negative (Negative); Nitrate,Urine Negative (Negative); Protein,Urine Negative (Negative); Specific Gravity, Urine <= 1.005 (1.005-1.030); Urobilinogen,Urine 0.2 EU/dl (0.2)
[2021-09-24 23:40] LABS: WBC,Urine Occasional #/hpf (0-3)
--- NOTE | 2021-09-24 23:41 | PC.NURSE ---
metz catheter inserted at this time. 1100 ml clear/yellow urine drained. UA obtained. pt tolerated well.
[2021-09-25 00:09] VITALS: BP 111/46; PULSE 79; RESP 16; TEMP 36.4; O2SAT 98
[2021-09-25 00:33] LABS: Thyroid Stimulating Hormone 0.73 uIU/mL (0.465-4.68)
== END 2021-09-25 00:14 | disposition home or self-care (01) ==
PROVIDERS: Emergency Provider Emergency Medicine; PCP Emergency Medicine
DX: K56.41 Fecal impaction (principal); K80.20 Calculus of gallbladder without cholecystitis without obstruction; R00.2 Palpitations; I10 Essential (primary) hypertension; I25.10 Atherosclerotic heart disease of native coronary artery without angina pectoris; I48.91 Unspecified atrial fibrillation; K21.9 Gastro-esophageal reflux disease without esophagitis; E78.5 Hyperlipidemia, unspecified; J98.4 Other disorders of lung; M25.50 Pain in unspecified joint; K64.9 Unspecified hemorrhoids; M19.90 Unspecified osteoarthritis, unspecified site; J44.9 Chronic obstructive pulmonary disease, unspecified; F17.210 Nicotine dependence, cigarettes, uncomplicated; Z79.51 Long term (current) use of inhaled steroids; Z79.52 Long term (current) use of systemic steroids; Z79.899 Other long term (current) drug therapy; Z88.2 Allergy status to sulfonamides; Z88.5 Allergy status to narcotic agent; Z88.8 Allergy status to other drugs, medicaments and biological substances; Z95.0 Presence of cardiac pacemaker; Z96.641 Presence of right artificial hip joint; Z82.49 Family history of ischemic heart disease and other diseases of the circulatory system; Z83.3 Family history of diabetes mellitus; Z80.9 Family history of malignant neoplasm, unspecified
CPT/HCPCS: 51702; 71046; 74177; 80053; 81001; 82150; 83690; 84439; 84443; 84484; 85025; 93005; 96360; 99285; J2405; Q9967

== ENCOUNTER → 2022-03-30 16:03 | Outpatient (CLI) | payer MEDICARE, BC, SELFPAY ==
--- NOTE | 2022-03-30 16:03 | MM_ITS ---
PROCEDURE INFORMATION: Exam: MG Bilateral Screening 3D Mammography Exam date and time: 03/30/2022 3:59 PM Age: 66 years old Clinical indication: Screening mammogram TECHNIQUE: Imaging protocol: Bilateral Screening tomosynthesis and 2D mammography including computer-aided detection (CAD) when performed. COMPARISON: 1. MG MM DIG SCREENING MAMM BI W/CAD 01/20/2021 3:25 PM 2. MG MM DIG SCREENING MAMM BI W/CAD 09/23/2019 4:23 PM 3. MG MM DIG MAMM DX UNILAT LT CAD 04/09/2019 2:45 PM 4. MG MM DIG MAMM DX UNILAT LT CAD 10/11/2018 1:31 PM FINDINGS: MAMMOGRAPHY: Breast composition: There are scattered areas of fibroglandular density. Mass: None. Architectural distortion: No new or suspicious architectural distortion. Calcifications: Stable benign-appearing calcifications are present. No new or suspicious cluster of microcalcifications have developed. Asymmetric density: No new or suspicious asymmetric density is present Skin thickening: None. Axillary adenopathy: None. IMPRESSION: No mammographic evidence of malignancy. Recommend annual screening mammography unless otherwise clinically indicated. ASSESSMENT: BI-RADS category 2: Benign
== END ==
PROVIDERS: PCP Emergency Medicine; Visit Provider Emergency Medicine
DX: Z12.31 Encounter for screening mammogram for malignant neoplasm of breast (principal)
CPT/HCPCS: 77063; 77067

== ENCOUNTER 2022-06-25 16:38 | Observation (INO) | payer MEDICARE, BC, SELFPAY ==
[2022-06-25] VITALS (9 sets, daily range): BP systolic 112–145; BP diastolic 54–65; PULSE 68–95; RESP 20; TEMP 36.8; O2SAT 95–96; BMI 20.1; BMI 38.5
--- NOTE | 2022-06-25 16:33 | ECG_ITS ---
APPROVED REPORT Exam: Resting ECG HR:89 bpm ECG Measurements Heart Rate 89 AXES UT 143 P 13 QRSd 102 QRS 58 QT 353 T 44 QTc 399 Conclusion SINUS RHYTHM NONSPECIFIC ST & T-WAVE ABNORMALITY BORDERLINE ECG UNCONFIRMED REPORT Electronically signed by : Xavi Sosa MD 06/26/2022 08:03:31
--- NOTE | 2022-06-25 16:37 | XR_ITS ---
PROCEDURE INFORMATION: Exam: XR Chest Exam date and time: 06/25/22 04:59 PM Age: 66 years old Clinical indication: Pain; Chest pressure; Prior surgery; Surgery date: 6+ months; Surgery type: Pacemaker; Additional info: Cp. Per patient pain around pacemaker and down left side , pacemaker has been implanted x 3-4 years TECHNIQUE: Imaging protocol: Radiologic exam of the chest. Views: 1 view. COMPARISON: CR XR CHEST 2V 09/24/21 10:05 PM FINDINGS: Lungs: Unremarkable. No consolidation. Pleural spaces: Unremarkable. No pleural effusion. No pneumothorax. Heart/Mediastinum: Left subclavian pacemaker leads overlie the right atrium and right ventricle. No significant change. No cardiomegaly. Bones/joints: Unremarkable. IMPRESSION: No acute findings.
--- NOTE | 2022-06-25 17:02 | PC.NURSE ---
pt given a pillow. call light within reach
[2022-06-25 17:07] LABS: Basophils # 0.1 K/mm3 (0-0.2); Basophils % 0.6 % (0.1-2.0); Eosinophils # 0.3 K/mm3 (0.0-0.4); Eosinophils % 1.5 % (0.1-12.0); Hemoglobin 10.9 g/dL (12.2-16.2); Lymphocytes # 4.7 K/mm3 (0.7-4.5); Lymphocytes % 27.6 % (10-50); Mean Corpuscular HGB Conc 32.2 g/dL (31.8-35.4); Mean Corpuscular Hemoglobin 28.2 pg (27.0-31.2); Mean Corpuscular Volume 87.7 fl (81-99); Mean Platelet Volume 8.3 fl (7.4-10.4); Monocytes # 0.7 K/mm3 (0.1-1.0); Monocytes % 4.2 % (1.7-9.3); Neutrophils # 11.2 K/mm3 (1.8-7.8); Neutrophils % 66.1 % (37.0-80.0); Platelet Count 445 K/mm3 (142-424); Red Blood Count 3.87 M/mm3 (4.20-5.40); Red Cell Distribution Width 14.3 % (11.5-17.5); White Blood Count 16.9 K/mm3 (4.8-10.8)
[2022-06-25 17:11] LABS: MANUAL DIFFERENTIAL MANUAL DIFFERENTIAL (MANUAL DIFF)
[2022-06-25 17:12] LABS: Alanine Aminotransferase 26 U/L (12-78); Albumin Level 4.5 g/dl (3.5-5.0); Albumin/Globulin Ratio 1.1 (1.1-1.8); Alkaline Phosphatase 105 U/L (38-126); Anion Gap 18.7 mEq/L (5-15); Aspartate Amino Transferase 34 U/L (14-36); Bilirubin,Total 0.4 mg/dl (0.2-1.3); Blood Urea Nitrogen 17 mg/dl (7-17); Carbon Dioxide 27 mmol/L (22.0-30.0); Chloride 95 mmol/L (98-107); Creatinine Clearance Estimated 44 mL/min (50-200); Estimated Glomerular Filt Rate 56 ml/min (>60); GFR (African American) 67 ML/MIN (>60); Glucose 107 mg/dl (74-100); Potassium 3.7 mmoL/L (3.5-5.1); Sodium 137 mmol/L (136-145); Total Protein,Serum 8.5 g/dl (6.3-8.2)
[2022-06-25 17:23] LABS: NT Pro Brain Natriuretic Pep. 169 pg/mL (0-125)
[2022-06-25 17:25] LABS: D-Dimer 1.35 ug/mL (0.0-0.5)
[2022-06-25 17:26] LABS: Troponin I < 0.01 ng/ml (0.00-0.034)
[2022-06-25 17:35] LABS: Eosinophils % 1 % (0-3); Lymphocytes % 28 % (10-50); Monocytes % 1 % (2-9); Neutrophils % 70 % (42-76); Platelet Estimate Normal; RBC Morphology Normal; Total Cells Counted 100
--- NOTE | 2022-06-25 18:42 | CT_ITS ---
PROCEDURE INFORMATION: Exam: CTA Chest With Contrast Exam date and time: 06/25/22 07:18 PM Age: 66 years old Clinical indication: Shortness of breath; Additional info: Pe eval TECHNIQUE: Imaging protocol: Computed tomographic angiography of the chest with contrast. 3D rendering (Not supervised by radiologist): MIP and/or 3D reconstructed images were created by the technologist. Radiation optimization: All CT scans at this facility use at least one of these dose optimization techniques: automated exposure control; mA and/or kV adjustment per patient size (includes targeted exams where dose is matched to clinical indication); or iterative reconstruction. Contrast material: ISOVUE; Contrast volume: 70 ml; Contrast route: INTRAVENOUS (IV); REPORTING DATA: Count of CT and Cardiac NM exams in prior 12 months: This patient has received [address] and 0 known cardiac nuclear medicine studies in the 12 months prior to the current study. COMPARISON: [facility] CT angio chest 02/26/17 09:24 AM FINDINGS: Pulmonary arteries: Bilateral lower lobe pulmonary emboli. Aorta: Unremarkable. No aortic aneurysm. No aortic dissection. Lungs: Unremarkable. No consolidation. No masses. Pleural spaces: Unremarkable. No pneumothorax. No pleural effusion. Heart: No CT evidence of right heart strain. Heart RV/LV ratio: RV/LV ratio is 0.8. Lymph nodes: Unremarkable. No enlarged lymph nodes. Gallbladder and bile ducts: Cholelithiasis. Kidneys and ureters: Bilateral renal cysts. Bones/joints: Unremarkable. No acute fracture. Soft tissues: Unremarkable. IMPRESSION: 1. Bilateral lower lobe pulmonary emboli. 2. No CT evidence of right heart strain. RV/LV ratio is 0.8. COMMENTS: Consistent with the [employer]'s Incidental Findings Committee white paper (J Am Teresa Radiol 2018): Any incidental renal lesion less than 1 cm or classified as too small to characterize, or any incidental cystic renal lesion characterized as simple-appearing, is likely benign. No follow-up imaging is recommended for these lesions per consensus recommendations based on imaging criteria.
--- NOTE | 2022-06-25 19:42 | PC.NURSE ---
S/W JAMES FOR CRITICAL FINDINGS
[2022-06-25 19:59] LABS: Coronavirus 19, PCR Not Detected (NotDetected); Influenza A, PCR Not Detected (NotDetected); Influenza B, PCR Not Detected (NotDetected)
[2022-06-25 20:10] LABS: Activated Partial Thrombo Time 26.4 seconds (22.8-30.6); INR 0.95 (0.9-1.1); Prothrombin Time 10.3 seconds (10.1-12.5)
--- NOTE | 2022-06-25 20:12 | EXP.HP ---
History of Present Illness *Admission Date: 06/25/22 *Reason for visit:: Chest pain *History of present illness: This is a 66-year-old female that presents to [facility] emergency department for concerns of chest pain. Her past medical history is significant for coronary artery disease, arrhythmia with permanent pacemaker, COPD with ongoing tobacco dependence. Her chest pain is described as pressure to her left chest area and radiates down her rib line. She characterizes the pain as sharp and piercing and worse with a deep breath. She rates her pain as greater than 5 on a 1-10 pain scale. She has not experienced any associated nausea, vomiting or diaphoresis. She denies palpitations. She recalls having lower chest wall pain approximately 1 month ago. She denies any associated leg, calf pain or increasing lower extremity edema. She reports shortness of air that is made worse with exertion but no associated hemoptysis or crescendo cough. She denies syncope. In the ED she was evaluated and a D-dimer is elevated. CTA of the chest identifies bilateral lower lobe emboli with no right heart strain. [facility] Medical History (Updated 06/25/22 @ 21:05 by Luis Fuentes MD) Allergies CAD (coronary artery disease) Cardiac pacemaker in situ Chronic anemia Chronic low back pain COPD (chronic obstructive pulmonary disease) Gallstones GERD (gastroesophageal reflux disease) Hyperlipidemia Hypertension Irritable bowel syndrome (IBS) Sleep apnea Tobacco dependence Surgical History (Updated 06/25/22 @ 20:21 by Luis Fuentes MD) H/O total hysterectomy H/O tubal ligation History of pacemaker S/P cardiac cath Family History Other Cancer Social History (Updated 06/25/22 @ 21:06 by Luis Fuentes MD) Smoking Status: Current every day smoker tobacco type: cigarettes packs per day: 1 years smoked: 45 quit status: considering quitting second hand exposure: Yes alcohol intake: never counseling provided: none substance use type: denies use current occupational status: disabled Travel in the last 8 weeks: None household members: spouse housing: house current occupational exposures/hazards: No caffeine: Yes Review of Systems Review of Systems Review of systems:: pertinent systems reviewed and negative unless documented below Constitutional Constitutional: Reports lethargy Eyes Eyes: Denies change in vision *Cardiovascular Cardiovascular: Reports chest pain and Reports dyspnea on exertion *Respiratory Respiratory: Reports dyspnea on exertion and Denies hemoptysis *Gastrointestinal Gastrointestinal: Denies diarrhea and Denies hematemesis *Neurologic Neurologic: Denies confusion Psychiatric Psychiatric: Denies confusion Meds Home Medications and Allergies Home Medications Medication Instructions Recorded Confirmed Type aspirin 81 mg tablet,delayed 81 mg PO DAILY heart 11/22/19 03/04/22 History release (Adult Low Dose Aspirin) vitamins-lipotropics 200 mg-100 mg 1 tab PO DAILY Supplement 03/05/21 03/04/22 History tablet (Lipo-Flavonoid Plus) lactulose 20 gram/30 mL oral 20 gm PO BID CONSTIPATION 12/20/21 03/04/22 History solution multivitamin 1 tab PO DAILY Supplement 12/20/21 03/04/22 History atorvastatin 40 mg tablet See Rx Instructions .Route 01/07/22 03/04/22 History .COMPLEX HLD peg 3350-electrolytes 236 240 ml PO Q10M PREP 01/07/22 03/04/22 History gram-22.74 gram-6.74 gram-5.86 gram solution (Golytely) albuterol sulfate 1.25 mg/3 mL See Rx Instructions .Route 01/17/22 03/04/22 Rx solution for nebulization .COMPLEX #90 mL meclizine 25 mg tablet See Rx Instructions .Route 01/17/22 03/04/22 Rx .COMPLEX #30 tabs spironolactone 50 mg tablet See Rx Instructions .Route 03/17/22 Rx .COMPLEX #180 tabs metoprolol succinate 50 mg See Rx Instructions .Route 04/19/22 Rx tablet,extended release 24 hr .COMPLE
[2022-06-25 20:23] LABS: Troponin I < 0.01 ng/ml (0.00-0.034)
--- NOTE | 2022-06-25 20:35 | HMH.EDGENADL ---
Discharge Plan Disposition Patient Disposition: Admitted As Inpatient Condition: Fair Prescriptions Prescriptions: No Action aspirin [Adult Low Dose Aspirin] 81 mg tablet,delayed release (DR/EC) 81 mg PO DAILY Lipo-Flavonoid Plus 200-100 mg tablet 1 tab PO DAILY meclizine 25 mg tablet See Rx Instructions .ROUTE .COMPLEX Qty: 30 0RF Dose Instruction: TAKE 1 TABLET BY MOUTH THREE TIMES DAILY NEEDED FOR DIZZINESS Rx Instructions: TAKE 1 TABLET BY MOUTH THREE TIMES DAILY NEEDED FOR DIZZINESS albuterol sulfate 1.25 mg/3 mL solution for nebulization See Rx Instructions .ROUTE .COMPLEX Qty: 90 0RF Dose Instruction: USE 1 VIAL IN NEBULIZER 4 TIMES DAILY NEEDED FOR SHORTNESS OF BREATH FOR WHEEZING Rx Instructions: USE 1 VIAL IN NEBULIZER 4 TIMES DAILY NEEDED FOR SHORTNESS OF BREATH FOR WHEEZING spironolactone 50 mg tablet See Rx Instructions .ROUTE .COMPLEX Qty: 180 1RF Dose Instruction: Take 1 tablet by mouth twice daily Rx Instructions: Take 1 tablet by mouth twice daily metoprolol succinate 50 mg tablet extended release 24 hr See Rx Instructions .ROUTE .COMPLEX Qty: 135 1RF Dose Instruction: TAKE 1 & 1/2 (ONE & ONE-HALF) TABLETS BY MOUTH ONCE DAILY FOR BLOOD PRESSURE Rx Instructions: TAKE 1 & 1/2 (ONE & ONE-HALF) TABLETS BY MOUTH ONCE DAILY FOR BLOOD PRESSURE lisinopril 5 mg tablet See Rx Instructions .ROUTE .COMPLEX Qty: 90 0RF Dose Instruction: Take 1 tablet by mouth once daily Rx Instructions: Take 1 tablet by mouth once daily pantoprazole 40 mg tablet,delayed release (DR/EC) See Rx Instructions .ROUTE .COMPLEX Qty: 90 0RF Dose Instruction: TAKE 1 TABLET BY MOUTH ONCE DAILY FOR STOMACH Rx Instructions: TAKE 1 TABLET BY MOUTH ONCE DAILY FOR STOMACH multivitamin [One A Day Vitamin] Tablet 1 tab PO DAILY lactulose 20 gram/30 mL solution 20 gm PO BID atorvastatin 40 mg tablet See Rx Instructions .ROUTE .COMPLEX Rx Instructions: Take 1 tablet by mouth once daily peg 3350-electrolytes [Golytely] 236-22.74-6.74 -5.86 gram recon soln 240 ml PO Q10M Rx Instructions: until fecal effluent is clear Referrals Follow up/Referrals: Luis Eckert MD [Primary Care Provider] - See instructions Discharge ED Provider: Kar Karimi Adult HPI General Chief complaint: Chest Pain Stated complaint: CP Time Seen by Provider: 06/25/22 16:42 Mode of Arrival: EMS Source of Information: Patient Limitations: No Limitations Description of Symptoms (Recalled from ER Triage Doc. 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 pt states her left fingers are tingling. pt reports pacemaker placement x3 years ago. History of Present Illness HPI narrative: Patient complains of left-sided chest pain. Sudden onset about 30 minutes ago. Sharp. Left-sided. Radiates to the left arm. Associated with shortness of breath. Also associated with a chronic nonproductive cough. Related Data Home Medications Medication Instructions Recorded Confirmed aspirin 81 mg tablet,delayed 81 mg PO DAILY heart 11/22/19 03/04/22 release (Adult Low Dose Aspirin) vitamins-lipotropics 200 mg-100 mg 1 tab PO DAILY Supplement 03/05/21 03/04/22 tablet (Lipo-Flavonoid Plus) lactulose 20 gram/30 mL oral 20 gm PO BID CONSTIPATION 12/20/21 03/04/22 solution multivitamin 1 tab PO DAILY Supplement 12/20/21 03/04/22 atorvastatin 40 mg tablet See Rx Instructions .Route 01/07/22 03/04/22 .COMPLEX HLD peg 3350-electrolytes 236 240 ml PO Q10M PREP 01/07/22 03/04/22 gram-22.74 gram-6.74 gram-5.86 gram solution (Golytely) Previous Rx's Medication Instructions Recorded albuterol sulfate 1.25 mg/3 mL See Rx Instructions .Route 01/17/22 solution for nebulization .COMPLEX #90
--- NOTE | 2022-06-25 20:43 | PC.NURSE ---
patient admitted to [address] Fuentes with admitting dx of bilateral PE
--- NOTE | 2022-06-25 20:44 | PC.NURSE ---
2044 received phone report from Cynthia Montes RN. Patient 66 yo female with bilat PEs.
--- NOTE | 2022-06-25 20:58 | PC.NURSE ---
2049 Patient arrived to the floor via w/c.
--- NOTE | 2022-06-25 21:13 | PC.NURSE ---
Password set up : Grammy
--- NOTE | 2022-06-25 21:36 | PC.NURSE ---
Pt unable to recall exactly what medications she is taking at home. Pt states she will have bring all her home med bottles in AM. Med rec unable to be completed at this time.
[2022-06-25 22:47] LABS: INR 0.96 (0.9-1.1); Prothrombin Time 10.4 seconds (10.1-12.5)
[2022-06-26] VITALS (15 sets, daily range): BP systolic 85–128; BP diastolic 37–59; PULSE 62–77; RESP 17–20; TEMP 36.7–36.9; O2SAT 93–96; BMI 39.3
--- NOTE | 2022-06-26 05:03 | PC.NURSE ---
PATIENTS VITAL SIGNS STABLE. HAS NOT HAD ANY CHEST PAIN OR EPISODES OF SOA. DID REQUIRE NORCO EARLIER FOR HER CHRONIC BACK PAIN WHICH WAS EFFECTIVE. USES 02 AT BEDTIME. 02 AT 2LNC IN USE. TELEMETRY SINUS RHYTHM WITH ECTOPY RARELY. PATIENT HAS A PACEMAKER BUT NO SPIKES WERE EVER DEMONSTRATED. SPOUSE TO BRING MEDS IN FOR VERIFICATION THIS AM.
[2022-06-26 07:19] LABS: Basophils # 0.1 K/mm3 (0-0.2); Basophils % 0.5 % (0.1-2.0); Eosinophils # 0.2 K/mm3 (0.0-0.4); Eosinophils % 1.6 % (0.1-12.0); Hematocrit 31.5 % (37.0-47.0); Hemoglobin 10.1 g/dL (12.2-16.2); Lymphocytes # 3.5 K/mm3 (0.7-4.5); Lymphocytes % 30.9 % (10-50); Mean Corpuscular Hemoglobin 28.4 pg (27.0-31.2); Mean Corpuscular Volume 88.7 fl (81-99); Mean Platelet Volume 8.1 fl (7.4-10.4); Monocytes # 0.5 K/mm3 (0.1-1.0); Neutrophils # 7.1 K/mm3 (1.8-7.8); Platelet Count 385 K/mm3 (142-424); Red Blood Count 3.55 M/mm3 (4.20-5.40); Red Cell Distribution Width 14.2 % (11.5-17.5); White Blood Count 11.3 K/mm3 (4.8-10.8)
[2022-06-26 07:22] LABS: Anion Gap 15.9 mEq/L (5-15); Blood Urea Nitrogen 14 mg/dl (7-17); Calcium 8.5 mg/dl (8.4-10.2); Carbon Dioxide 28 mmol/L (22.0-30.0); Chloride 100 mmol/L (98-107); Creatinine Clearance Estimated 86 mL/min (50-200); Estimated Glomerular Filt Rate 56 ml/min (>60); GFR (African American) 67 ML/MIN (>60); Glucose 93 mg/dl (74-100); Magnesium 1.9 mg/dl (1.6-2.3); Potassium 3.9 mmoL/L (3.5-5.1); Sodium 140 mmol/L (136-145)
--- NOTE | 2022-06-26 08:12 | HMH.PHAINT1 ---
Pharmacy Intervention Comments: MEDICATION RECONCILIATION COMPLETED ON PATIENT USING EXTERNAL FILL HISTORY FROM PHARMACY. -SIMONA PRABHAKAR, MARSHAD
--- NOTE | 2022-06-26 09:00 | PC.NURSE ---
spoke with MD regarding pt hypotension and increasing back pain. 500cc Bolus ordered. infusing now
--- NOTE | 2022-06-26 11:06 | EXP.DC.SUM ---
General Admission date:: 06/25/22 Discharge date: 06/26/22 HPI HPI HPI: This is a 66-year-old female that presents to [facility] emergency department for concerns of chest pain. Her past medical history is significant for coronary artery disease, arrhythmia with permanent pacemaker, COPD with ongoing tobacco dependence. Her chest pain is described as pressure to her left chest area and radiates down her rib line. She characterizes the pain as sharp and piercing and worse with a deep breath. She rates her pain as greater than 5 on a 1-10 pain scale. She has not experienced any associated nausea, vomiting or diaphoresis. She denies palpitations. She recalls having lower chest wall pain approximately 1 month ago. She denies any associated leg, calf pain or increasing lower extremity edema. She reports shortness of air that is made worse with exertion but no associated hemoptysis or crescendo cough. She denies syncope. In the ED she was evaluated and a D-dimer is elevated. CTA of the chest identifies bilateral lower lobe emboli with no right heart strain. Hospital Course Hospital Course Hospital Course: The patient was admitted to the medical unit with telemetry monitoring. She was maintained on continuous pulse oximetry monitoring. Nursing staff identified that she remained afebrile with stable heart rates and some low blood pressures. Her morning labs identified improvement and stability. Her discharge hemoglobin is 10.1 and her creatinine 1.0. She ambulated appropriately in the room. She identified significant improvement and inquired about discharge home on Mother's Day. We discussed her blood pressures and I have recommended holding her SANTA inhibitor and aldosterone antagonist and reducing her beta-lonny therapy at home with routine blood pressure monitoring. We discussed the risk of falls and orthostatic changes. She reports that she will be surrounded by her loved ones and will routinely monitor her blood pressure. I have recommended a follow-up with her PCP over the next 2 to 3 days. She understands she should take her Eliquis 10 mg twice a day for 7 days and then transition to 5 mg twice daily. She will see her PCP for refills and further evaluation. I spent 35 minutes in [id number] time with the patient and her her nurse (Crystal FERREIRA) concerning the discharge process. We discussed the admitting diagnoses and hospital course. We discussed identified improvement and the patient's desire to be discharged. We reviewed inpatient studies and imaging. The patient voiced understanding on the importance of follow-up with her primary care provider and specialist(s). The patient plans to be compliant with the medication regimen prescribed and follow-up appointments. She will routinely monitor her blood pressure and be cognizant of fall precautions. She understands that she can return to the emergency department with any sudden changes or concerns. Exam Data for Last 24 hours Vital signs and Labs for Last 24 Hours: Temp Pulse Resp BP Pulse Ox FiO2 98.0 F 66 20 90/41 L 93 L 28 06/26/22 07:11 06/26/22 10:26 06/26/22 08:45 06/26/22 10:26 06/26/22 08:00 06/25/22 23:34 Laboratory Results - last 24 hr 06/25/22 16:40: WBC 16.9 H, RBC 3.87 L, Hgb 10.9 L, Hct 34.0 L, MCV 87.7, MCH 28.2, MCHC 32.2, RDW 14.3, Plt Count 445 H, MPV 8.3, Neut % (Auto) 66.1, Lymph % (Auto) 27.6, [place] % (Auto) 4.2, Eos % (Auto) 1.5, Baso % (Auto) 0.6, Neut # (Auto) 11.2 H, Lymph # (Auto) 4.7 H, [place] # (Auto) 0.7, Eos # (Auto) 0.3, Baso # (Auto) 0.1, Total Counted 100, Neutrophils % (Manual) 70, Lymphocytes % (Manual) 28, Monocytes % (Manual) 1 L, Eosinophils % (Manual) 1, Platelet Estimate Normal, RBC Morphology Normal 06/25/22 16:40: D-Dimer 1.35 H 06/25/22 16:40: Sodium 137, Potassium 3.7, Chloride 95 L, Carbon Dioxide 27, Anion Gap 18.7 H, BUN 17, Creatinine 1.00, Estimated Creat Clear 44, Estimated GFR 56 L, Est GFR ( Amer) 67
--- NOTE | 2022-06-26 11:32 | PC.NURSE ---
pt requesting to be discharged. MD advised pt of hypotension as well as continued symptoms.
--- NOTE | 2022-06-26 12:05 | PC.NURSE ---
educated pt on medication changes and follow up appts. Daughter @ bedside verbalized understanding as well. IV discontinued. took all bleongings with her.
--- NOTE | 2022-06-27 13:04 | CARE MANAGER ---
Contacted patient related to hospital discharge. She states she is not feeling well and can't keep anything down . She thinks it is the pain medication. She did take a Phenegran and is going to see if it helps. She has a follow up appointment with Dr. Eckert tomorrow. Encouraged her if she gets worse to go to ER. She also reports headache. JHON Montoya
[2022-06-27 15:09] LABS: Homocyst(e)ine 9.8 umol/L (0.0-17.2)
[2022-06-28 14:21] LABS: Protein C Antigen 130 % (60-150)
[2022-06-29 18:09] LABS: Anti-Thrombin III Antigen 110 % (72-124); Antithrombin Activity 126 % (75-135); Factor VIII Activity 196 % (56-140); Protein C Functional 166 % (73-180); Protein S, Free 111 % (61-136); Protein S, Total 130 % (60-150); Protein S-Functional 134 % (63-140)
[2022-07-31 16:05] LABS: Factor V Leiden Not Detected
== END 2022-06-26 12:07 | disposition home or self-care (01) ==
LOC: ER 19:58 → 2ND 20:41
PROVIDERS: Admitting Provider Family Medicine; Emergency Provider Emergency Medicine; PCP Emergency Medicine; Visit Provider Family Medicine
DX: I26.99 Other pulmonary embolism without acute cor pulmonale (principal); F17.210 Nicotine dependence, cigarettes, uncomplicated; J44.9 Chronic obstructive pulmonary disease, unspecified; I25.10 Atherosclerotic heart disease of native coronary artery without angina pectoris; I10 Essential (primary) hypertension; Z95.0 Presence of cardiac pacemaker; D64.9 Anemia, unspecified; Z79.899 Other long term (current) drug therapy; Z99.81 Dependence on supplemental oxygen; Z79.01 Long term (current) use of anticoagulants; R06.9 Unspecified abnormalities of breathing; Z20.822 Contact with and (suspected) exposure to COVID-19
CPT/HCPCS: G0378; 71045; 71275; 80048; 80053; 81241; 83090; 83735; 83880; 84484; 85007; 85025; 85240; 85300; 85301; 85302; 85305; 85306; 85378; 85610; 85730; 86148; 87635; 87636; 93005; 94640; 94760; 99285; C9803; J2405; Q9967; U0003; U0005

== ENCOUNTER 2022-06-26 15:13 | Emergency (ER) | payer MEDICARE, BC, SELFPAY ==
[2022-06-26 15:15] VITALS: BP 135/51; PULSE 85; RESP 20; TEMP 36.4; O2SAT 92; BMI 38.9
[2022-06-26 15:53] LABS: Basophils # 0.1 K/mm3 (0-0.2); Basophils % 0.6 % (0.1-2.0); Eosinophils # 0.2 K/mm3 (0.0-0.4); Eosinophils % 1.7 % (0.1-12.0); Hematocrit 32.3 % (37.0-47.0); Hemoglobin 10.4 g/dL (12.2-16.2); Lymphocytes # 4.3 K/mm3 (0.7-4.5); Lymphocytes % 34.1 % (10-50); Mean Corpuscular HGB Conc 32.2 g/dL (31.8-35.4); Mean Corpuscular Hemoglobin 28.4 pg (27.0-31.2); Mean Corpuscular Volume 88.1 fl (81-99); Mean Platelet Volume 7.8 fl (7.4-10.4); Monocytes # 0.5 K/mm3 (0.1-1.0); Monocytes % 3.8 % (1.7-9.3); Neutrophils # 7.5 K/mm3 (1.8-7.8); Neutrophils % 59.8 % (37.0-80.0); Platelet Count 405 K/mm3 (142-424); Red Blood Count 3.67 M/mm3 (4.20-5.40); Red Cell Distribution Width 14.4 % (11.5-17.5); White Blood Count 12.5 K/mm3 (4.8-10.8)
[2022-06-26 16:01] VITALS: BP 116/40; PULSE 72; RESP 18; O2SAT 96
[2022-06-26 16:01] LABS: Alanine Aminotransferase 24 U/L (12-78); Albumin/Globulin Ratio 1.1 (1.1-1.8); Alkaline Phosphatase 101 U/L (38-126); Anion Gap 14.8 mEq/L (5-15); Aspartate Amino Transferase 31 U/L (14-36); Bilirubin,Total 0.4 mg/dl (0.2-1.3); Blood Urea Nitrogen 15 mg/dl (7-17); Calcium 8.6 mg/dl (8.4-10.2); Carbon Dioxide 29 mmol/L (22.0-30.0); Chloride 100 mmol/L (98-107); Creatinine Clearance Estimated 78 mL/min (50-200); Estimated Glomerular Filt Rate 50 ml/min (>60); GFR (African American) 60 ML/MIN (>60); Globulin 3.6 g/dL (1.3-3.2); Glucose 110 mg/dl (74-100); Potassium 3.8 mmoL/L (3.5-5.1); Sodium 140 mmol/L (136-145); Total Protein,Serum 7.6 g/dl (6.3-8.2)
--- NOTE | 2022-06-26 16:07 | PC.NURSE ---
pt states no complaints at this time, tab tran at bedside
[2022-06-26 16:14] LABS: Troponin I < 0.01 ng/ml (0.00-0.034)
[2022-06-26 16:31] VITALS: BP 121/54; PULSE 74; RESP 18; O2SAT 96
--- NOTE | 2022-06-26 17:11 | HMH.EDGENADL ---
Discharge Plan Disposition Patient Disposition: Home, Self-Care Condition: Fair Prescriptions Prescriptions: No Action atorvastatin 40 mg tablet 40 mg PO DAILY Label Comments: TAKE 1 TABLET BY MOUTH ONCE DAILY metoprolol succinate 50 mg tablet extended release 24 hr 75 mg PO POSTTR Label Comments: TAKE 1 & 1/2 (ONE & ONE-HALF) TABLETS BY MOUTH ONCE DAILY FOR BLOOD PRESSURE albuterol sulfate 1.25 mg/3 mL solution for nebulization 1.25 mg inhalation QIDP PRN (Reason: Breathing Problems) Label Comments: USE 1 VIAL IN NEBULIZER 4 TIMES DAILY NEEDED FOR SHORTNESS OF BREATH FOR WHEEZING pantoprazole 40 mg tablet,delayed release (DR/EC) 40 mg PO AM Label Comments: TAKE 1 TABLET BY MOUTH ONCE DAILY FOR STOMACH aspirin 81 mg Tablet 81 mg PO DAILY lisinopril 5 mg tablet 5 mg PO DAILY Label Comments: TAKE 1 TABLET BY MOUTH ONCE DAILY spironolactone 50 mg tablet 50 mg PO BID Label Comments: TAKE 1 TABLET BY MOUTH TWICE DAILY Referrals Follow up/Referrals: Luis Eckert MD [Primary Care Provider] - See instructions Clinical Impressions Clinical Impression: Pulmonary embolism Instructions Patient Instructions: DI for Pulmonary Embolism Discharge ED Provider: Celso Sharma General Adult HPI General Chief complaint: Headache Stated complaint: LANIER,SOA, back pain Time Seen by Provider: 06/26/22 15:30 Mode of Arrival: Wheelchair Source of Information: Patient Limitations: No Limitations Description of Symptoms (Recalled from ER Triage Doc. by RN): 66 F presents from home c/o headache, tired mouth, back pain, and feeling shaky. Patient was given the option to go home or stay another night in the hospital here, but decided to go home. She feels as if she went home too early now. Patient is a 2 ppd smoker. History of Present Illness HPI narrative: Patient is a 66-year-old female who was just discharged from the hospital earlier this morning for pulmonary embolism who presents with multiple complaints. She reports that she was wishing to go home this morning and pushed for discharge. She says that since she got home she started develop some headache as well as quite a bit of chest pain. She says that she has been coughing which is causing her to have more chest pain. She says the pain is worse with deep inspiration. Denies any numbness or tingling into her extremities. No worsening shortness of breath. Related Data Home Medications Medication Instructions Recorded Confirmed albuterol sulfate 1.25 mg/3 mL 1.25 mg inhalation QIDP PRN 06/26/22 06/26/22 solution for nebulization Breathing Problems aspirin 81 mg tablet 81 mg PO DAILY Heart health 06/26/22 06/26/22 atorvastatin 40 mg tablet 40 mg PO DAILY Cholesterol 06/26/22 06/26/22 lisinopril 5 mg tablet 5 mg PO DAILY High blood pressure 06/26/22 06/26/22 metoprolol succinate 50 mg 75 mg PO POSTTR High blood pressure 06/26/22 06/26/22 tablet,extended release 24 hr pantoprazole 40 mg tablet,delayed 40 mg PO AM Acid reflux 06/26/22 06/26/22 release spironolactone 50 mg tablet 50 mg PO BID Fluid 06/26/22 06/26/22 Allergies Allergy/AdvReac Type Severity Reaction Status Date / Time latex [LATEX] Allergy Intermediate I-RASH Verified 03/04/22 14:38 codeine [CODEINE] Allergy Mild NA-NAUSEA, Verified 03/04/22 14:38 CHEST PRESSURE tuberculin,PPD,multi-puncture Allergy Mild POSITIVE Verified 03/04/22 14:38 [TUBERCULIN,PPD,MULTI-PUNCTURE] REACTOR sulfamethoxazole Allergy Unknown RASH,VOMITI Verified 03/04/22 14:38 [From BACTRIM] NG trimethoprim [From BACTRIM] Allergy Unknown Verified 03/04/22 14:38 [facility] Disclaimer: The information contained in this section may have been updated after the patient was seen, as this information can be updated by other users. Medical History (Updated 06/26/22 @ 17:09 by Celso Sharma MD) Allergies CA
[2022-06-26 17:14] VITALS: BP 135/65; PULSE 73; RESP 15; TEMP 36.7; O2SAT 95
== END 2022-06-26 17:19 | disposition home or self-care (01) ==
PROVIDERS: Emergency Provider Student in an Organized Health Care Education/Training Program; PCP Emergency Medicine
DX: R07.1 Chest pain on breathing (principal); R51.9 Headache, unspecified; F17.210 Nicotine dependence, cigarettes, uncomplicated; Z86.711 Personal history of pulmonary embolism
CPT/HCPCS: 80053; 84484; 85025; 96361; 96374; 99285

== ENCOUNTER → 2022-07-05 15:04 | Outpatient (CLI) | payer MEDICARE, BC, SELFPAY ==
--- NOTE | 2022-07-05 15:20 | CA_ITS ---
FINAL REPORT CLINICAL HISTORY: Pulmonary Emboli bilateral,EDEMA FINDINGS: Color Doppler, duplex Doppler and compression sonography of the bilateral lower extremities was performed. There is no evidence of deep venous thrombosis from the level of the groin to the calf. The deep veins are patent and compressible. IMPRESSION: No evidence of deep venous thrombosis bilateral lower extremities. Reviewed, Interpreted and Dictated by Mina Rivero III, MD Transcribed by Jacinta Martinez Authenticated and [facility]
--- NOTE | 2022-07-05 16:06 | US_ITS ---
FINAL REPORT TECHNIQUE: Ultrasound images of the kidneys and bladder were obtained. CLINICAL HISTORY: I26.99 - Other pulmonary embolism without acute cor pulmo... FINDINGS: The right kidney measures 11.2 cm in length. It is normal in echogenicity. There is no hydronephrosis. There is a 1.6 cm cyst. The left kidney measures 11.6 cm in length. It is normal in echogenicity. There is no hydronephrosis. There is a 2.8 cm cyst. The spleen is unremarkable. IMPRESSION: Bilateral renal cysts. Reviewed, Interpreted and Dictated by Mina Rivero III, MD Transcribed by Jacinta Martinez Authenticated and . [facility]
== END ==
PROVIDERS: PCP Emergency Medicine; Visit Provider Physician Assistant
DX: E66.9 Obesity, unspecified (principal); E78.2 Mixed hyperlipidemia; F17.200 Nicotine dependence, unspecified, uncomplicated; I10 Essential (primary) hypertension; I25.10 Atherosclerotic heart disease of native coronary artery without angina pectoris; I26.99 Other pulmonary embolism without acute cor pulmonale; N28.1 Cyst of kidney, acquired; R06.01 Orthopnea; R06.02 Shortness of breath; R42 Dizziness and giddiness; R51.9 Headache, unspecified; Z95.0 Presence of cardiac pacemaker; Z68.37 Body mass index [BMI] 37.0-37.9, adult
CPT/HCPCS: 76770; 93970

== ENCOUNTER → 2022-08-01 13:15 | Outpatient (CLI) | payer MEDICARE, BC, SELFPAY ==
--- NOTE | 2022-08-01 13:15 | CT_ITS ---
FINAL REPORT TECHNIQUE: Axial CT images were performed through the head. Coronal reformatted images were submitted. This study was performed with techniques to keep radiation doses as low as reasonably achievable (ALARA). Individualized dose reduction techniques using automated exposure control or adjustment of mA and/or kV according to the patient's size were employed. CLINICAL HISTORY: Headache COMPARISON: 05/16/2020 FINDINGS: The ventricles are normal in size. There is no evidence of hemorrhage. There is no mass or edema identified. There is no abnormal extra-axial fluid seen. The sinuses are well aerated. Note is made of hyperostosis frontalis interna. IMPRESSION: No acute intracranial process. Reviewed, Interpreted and Dictated by Arthur Spain MD Transcribed by Viviane Sylvester Authenticated and [facility]
== END ==
PROVIDERS: PCP Emergency Medicine; Visit Provider Nurse Practitioner
DX: E66.9 Obesity, unspecified (principal); E78.2 Mixed hyperlipidemia; F17.200 Nicotine dependence, unspecified, uncomplicated; I10 Essential (primary) hypertension; I25.10 Atherosclerotic heart disease of native coronary artery without angina pectoris; I26.99 Other pulmonary embolism without acute cor pulmonale; N28.1 Cyst of kidney, acquired; R06.02 Shortness of breath; R42 Dizziness and giddiness; R51.9 Headache, unspecified; Z95.0 Presence of cardiac pacemaker; Z68.37 Body mass index [BMI] 37.0-37.9, adult
CPT/HCPCS: 70450; 93306

== ENCOUNTER → 2022-09-15 14:17 | Outpatient (CLI) | payer MEDICARE, BC, SELFPAY ==
[2022-09-15 14:50] LABS: Basophils # 0.1 K/mm3 (0-0.2); Basophils % 0.5 % (0.1-2.0); Eosinophils # 0.2 K/mm3 (0.0-0.4); Eosinophils % 1.9 % (0.1-12.0); Hemoglobin 10.4 g/dL (12.2-16.2); Lymphocytes % 27.6 % (10-50); Mean Corpuscular HGB Conc 32.3 g/dL (31.8-35.4); Mean Corpuscular Hemoglobin 27.8 pg (27.0-31.2); Mean Corpuscular Volume 85.8 fl (81-99); Mean Platelet Volume 7.8 fl (7.4-10.4); Monocytes # 0.5 K/mm3 (0.1-1.0); Monocytes % 4.5 % (1.7-9.3); Neutrophils % 65.5 % (37.0-80.0); Platelet Count 381 K/mm3 (142-424); Red Blood Count 3.73 M/mm3 (4.20-5.40); Red Cell Distribution Width 14.5 % (11.5-17.5); White Blood Count 10.8 K/mm3 (4.8-10.8)
[2022-09-15 16:30] LABS: Vitamin B12 454 pg/mL (239-931)
[2022-09-15 16:34] LABS: Iron 63 ug/dL (37-170)
[2022-09-15 16:57] LABS: Total Iron Binding Capacity 296 ug/dL (265-497)
[2022-09-15 17:12] LABS: Ferritin 67.5 ng/ml (11.1-264)
== END ==
PROVIDERS: PCP Emergency Medicine; Visit Provider Internal Medicine Medical Oncology
DX: I26.99 Other pulmonary embolism without acute cor pulmonale (principal); D64.9 Anemia, unspecified
CPT/HCPCS: 36415; 82607; 82728; 82746; 83540; 83550; 85025

== ENCOUNTER 2023-02-22 15:04 | Emergency (ER) | payer MEDICARE, MEDICAID, SELFPAY ==
[2023-02-22] VITALS (9 sets, daily range): BP systolic 109–157; BP diastolic 57–78; PULSE 67–80; RESP 17–18; TEMP 36.8–36.9; O2SAT 91–98; BMI 40.2
--- NOTE | 2023-02-22 | CT_ITS ---
FINAL REPORT CLINICAL HISTORY: NUMBNESS, possible TIA COMPARISON: 08/01/2022 FINDINGS: Axial images of the head were obtained without contrast. Coronal and sagittal reformatted images were also obtained.This study was performed with techniques to keep radiation doses as low as reasonably achievable (ALARA). Individualized dose reduction techniques using automated exposure control or adjustment of mA and/or kV according to the patient's size were employed. There is no evidence of intracranial hemorrhage or mass. The ventricular size is within normal limits. There is no evidence of shift of the midline structures. No abnormal extra axial fluid collection is identified. No skull abnormality is seen on the bone window images. IMPRESSION: No acute intracranial abnormality. Reviewed, Interpreted and Dictated by Mina Rivero III, MD Transcribed by Dina Christianson Authenticated and [facility]
--- NOTE | 2023-02-22 14:56 | ECG_ITS ---
APPROVED REPORT Exam: Resting ECG HR:74 bpm ECG Measurements Heart Rate 74 AXES NH 166 P 55 QRSd 93 QRS 67 QT 347 T 48 QTc 374 Conclusion SINUS RHYTHM WITH SINUS ARRHYTHMIA NONSPECIFIC T-WAVE ABNORMALITY BORDERLINE ECG UNCONFIRMED REPORT Electronically signed by : Xavi Sosa MD 02/23/2023 20:11:01
[2023-02-22 15:30] LABS: Basophils # 0.1 K/mm3 (0-0.2); Basophils % 0.8 % (0.1-2.0); Eosinophils # 0.2 K/mm3 (0.0-0.4); Eosinophils % 1.9 % (0.1-12.0); Hematocrit 37.1 % (37.0-47.0); Hemoglobin 11.9 g/dL (12.2-16.2); Lymphocytes # 2.6 K/mm3 (0.7-4.5); Lymphocytes % 22.9 % (10-50); Mean Corpuscular HGB Conc 32.1 g/dL (31.8-35.4); Mean Corpuscular Hemoglobin 28.7 pg (27.0-31.2); Mean Corpuscular Volume 89.4 fl (81-99); Mean Platelet Volume 8.4 fl (7.4-10.4); Monocytes # 0.6 K/mm3 (0.1-1.0); Neutrophils # 7.8 K/mm3 (1.8-7.8); Neutrophils % 69.5 % (37.0-80.0); Platelet Count 445 K/mm3 (142-424); Red Blood Count 4.15 M/mm3 (4.20-5.40); Red Cell Distribution Width 14.2 % (11.5-17.5); White Blood Count 11.3 K/mm3 (4.8-10.8)
[2023-02-22 15:37] LABS: Activated Partial Thrombo Time 27.7 seconds (22.8-30.6); Prothrombin Time 10.8 seconds (10.1-12.5)
[2023-02-22 15:40] LABS: Chloride 101 mmol/L (98-107); Potassium 4.1 mmoL/L (3.5-5.1); Sodium 142 mmol/L (136-145)
[2023-02-22 15:42] LABS: Alanine Aminotransferase 27 U/L (12-78); Blood Urea Nitrogen 15 mg/dl (7-17); Creatinine Clearance Estimated 87 mL/min (50-200); Estimated Glomerular Filt Rate 55 ml/min (>60); GFR (African American) 67 ML/MIN (>60)
[2023-02-22 15:43] LABS: Albumin Level 4.4 g/dl (3.5-5.0); Albumin/Globulin Ratio 1.1 (1.1-1.8); Alkaline Phosphatase 113 U/L (38-126); Anion Gap 12.1 mEq/L (5-15); Aspartate Amino Transferase 32 U/L (14-36); Bilirubin,Total 0.4 mg/dl (0.2-1.3); Calcium 9.8 mg/dl (8.4-10.2); Carbon Dioxide 33 mmol/L (22.0-30.0); Globulin 4.1 g/dL (1.3-3.2); Glucose 111 mg/dl (74-100); Total Protein,Serum 8.5 g/dl (6.3-8.2)
[2023-02-22 15:56] LABS: Troponin I < 0.01 ng/ml (0.00-0.034)
--- NOTE | 2023-02-22 16:15 | PC.NURSE ---
pt arrived back to room from ct
--- NOTE | 2023-02-22 16:28 | ED_ITS ---
Discharge Plan Disposition Patient Disposition: Home, Self-Care Condition: Good Chief Complaint: Shortness of Breath/Dyspnea Prescriptions Prescriptions: No Action Eliquis 5 mg tablet 5 mg PO BID Qty: 180 1RF meclizine 25 mg tablet 25 mg PO DAILY PRN Patient Comments: TAKE 1 TABLET BY MOUTH TWICE DAILY NEEDED FOR DIZZINESS spironolactone 50 mg tablet 50 mg PO BID Qty: 180 3RF metoprolol succinate 50 mg tablet extended release 24 hr 50 mg PO DAILY Qty: 90 3RF lisinopril 5 mg tablet 5 mg PO DAILY Qty: 90 3RF atorvastatin 40 mg tablet See Rx Instructions .ROUTE .COMPLEX Qty: 90 1RF Dose Instruction: Take 1 tablet by mouth once daily Rx Instructions: Take 1 tablet by mouth once daily pantoprazole 40 mg tablet,delayed release (DR/EC) See Rx Instructions .ROUTE .COMPLEX Qty: 90 0RF Dose Instruction: TAKE 1 TABLET BY MOUTH ONCE DAILY FOR STOMACH Rx Instructions: TAKE 1 TABLET BY MOUTH ONCE DAILY FOR STOMACH albuterol sulfate 1.25 mg/3 mL solution for nebulization 1.25 mg inhalation QIDP PRN (Reason: Breathing Problems) Patient Comments: USE 1 VIAL IN NEBULIZER 4 TIMES DAILY NEEDED FOR SHORTNESS OF BREATH FOR WHEEZING aspirin 81 mg Tablet 81 mg PO DAILY Referrals Follow up/Referrals: Ally Carranza PA [Primary Care Provider] - See instructions Activity Restrictions/Add. 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 Return if worsening or persistent chest pain, shortness of breath, lightheadedness, or other concerns. Clinical Impressions Clinical Impression: Pre-syncope Instructions Patient Instructions: DI for Syncope in Adults (Fainting) Discharge ED Provider: Shayna Loving General Chief Complaint: Shortness of Breath/Dyspnea Stated Complaint: Dizzy Time Seen by Provider: 02/22/23 15:08 Mode of Arrival: EMS Source of Information: Patient Limitations: No Limitations Description of Symptoms (Recalled from ER Triage Doc. by RN): pt presents to ED with c/o shortness of air, tingiling in left side of face and arm. symptoms resolved upon arrival to ED. pt reports that is having no symptoms at this time. pt does have COPD, and wears 2L NC at night. over the past 2-3 days she has needed her oxygen during the day as well. History of Present Illness HPI narrative: 67-year-old female with previous medical history of coronary artery disease, COPD, pacemaker, anemia, PEs 06/2022, CVA presenting with episode of shortness of breath, dizziness, and left face and hand tingling on exertion. Around 1:30 PM, patient was taking out the trash as she usually does without difficulty, when she had a 10-minute episode of sudden shortness of breath, nausea, left face tingling and left hand tingling. This resolved with rest after about 10 minutes. She called EMS and was brought to the emergency department. She does not believe she had any weakness, chest pain, or other concerns. Otherwise she has been in her usual state of health and is currently asymptomatic in the emergency department. Related Data Home Medications Medication Instructions Recorded Confirmed albuterol sulfate 1.25 mg/3 mL 1.25 mg inhalation QIDP PRN 06/26/22 01/16/23 solution for nebulization Breathing Problems aspirin 81 mg tablet 81 mg PO DAILY Heart health 06/26/22 01/16/23 meclizine 25 mg tablet 25 mg PO DAILY PRN 01/16/23 01/16/23 Previous Rx's Medication Instructions Recorded metoprolol succinate 50 mg 50 mg PO DAILY High blood pressure 07/04/22 tablet,extended release 24 hr #90 tabs spironolactone 50 mg tablet 50 mg PO BID Fluid #180 tabs 07/04/22 lisinopril 5 mg tablet 5 mg PO DAILY High blood pressure 08/04/22 #90 tabs apixaban 5 mg tablet (Eliquis) 5 mg PO BID #180 tabs 09/19/22 atorvastatin 40 mg tablet See Rx Instructions .Route 09/22/22 .COMPLEX #90 tabs pantoprazole 40 mg tablet,delayed See Rx Instructions .Route 11/14/22 release .COMPLEX #90 tabs Allergies Allergy/AdvReac Type Severity Reaction Status Date / Time latex [LATEX] Allergy Intermediate I-RASH Verified 01/16/23 16:40 codeine [CODEINE] Allergy Mild NA-NAUSEA, Verified 01/16/23 16:40 CHEST PRESSURE tuberculin,PPD,multi-puncture Allergy Mild POSITIVE Verified 01/16/23 16:40 [TUBERCULIN,PPD,MULTI-PUNCTURE] REACTOR sulfamethoxazole Allergy Unknown RASH,VOMITI Verified 01/16/23 16:40 [From BACTRIM] NG trimethoprim [From BACTRIM] Allergy Unknown Verified 01/16/23 16:40 [facility] Disclaimer: The information contained in this section may have been updated after the patient was seen, as this information can be updated by other users. Medical History Allergies CAD (coronary artery disease) Cardiac pacemaker in situ Chronic anemia Chronic low back pain COPD (chronic obstructive pulmonary disease) Gallstones GERD (gastroesophageal reflux disease) Headache Hyperlipidemia Hypertension Irritable bowel syndrome (IBS) Renal cyst Sleep apnea Tobacco dependence Surgical History H/O total hysterectomy H/O tubal ligation History of pacemaker S/P cardiac cath Family History Mother Family history of diabetes mellitus type II Cancer Kidney failure History of open heart surgery Father Family history of acute heart failure Family history of arthritis Social History Smoking Status: Current every day smoker tobacco type: cigarettes packs per day: 1 years smoked: 45 quit status: considering quitting second hand exposure: Yes alcohol intake: never counseling provided: none substance use type: denies use current occupational status: disabled Travel in the last 8 weeks: None household members: spouse housing: house current occupational exposures/hazards: No caffeine: Yes ROS Obtained: Yes All systems reviewed & no additional complaints except as documented Cardiovascular Cardiovascular: Denies chest pain, Reports diaphoresis, Reports dyspnea on exertion, Denies edema and Reports lightheadedness Respiratory Respiratory: Reports dyspnea on exertion Physical Exam General General appearance: alert, in no apparent distress and obese Head Head exam: atraumatic, normocephalic and normal inspection Eye Eye exam: Present normal appearance, PERRL and EOMI ENT ENT exam: Present normal exam, normal oropharynx, mucous membranes moist, TM's normal bilaterally and normal external ear exam Neck Neck exam: Present normal inspection, full ROM and trachea midline; Absent meningismus or lymphadenopathy Chest Chest inspection: Present normal inspection and symmetric chest wall rise; Absent tenderness Respiratory Respiratory exam: Present normal lung sounds bilaterally; Absent respiratory distress Cardiovascular Cardiovascular exam: Present regular rate, normal rhythm and Pacemaker/defibrillator; Absent JVD Abdominal Exam Abdominal exam: Present soft and normal bowel sounds; Absent distention, tenderness or guarding Extremities Exam Extremities exam: Present normal inspection, full ROM and normal capillary refill; Absent calf tenderness Back Exam Back exam: Present normal inspection; Absent tenderness Neurological Exam Neurological exam: Present alert and oriented X3 Psychiatric Psychiatric exam: Present normal affect and normal mood Skin Skin exam: Present warm, dry, intact and normal color Lymphatic Lymphatic Findings: no adenopathy HEART Score HEART Score HEART Score assessment performed?: Yes HEART Score: 5 Critical Care Critical Care Time Critical Care Time: No Medical Decision Making John Inquiry Pt receiving controlled substance: No John was queried for this patient: No Vital Signs Vital Signs: 02/22/23 15:04 02/22/23 15:03 02/22/23 15:15 Temperature 98.3 F Temperature Source Oral Pulse Rate 70 69 Pulse Rate [Left Radial] 71 Respiratory Rate 17 Blood Pressure Blood Pressure [Right Arm] 157/63 H Blood Pressure Mean Blood Pressure Mean [Right Arm] 94 02 Sat by Pulse Oximetry 96 96 96 Oxygen Delivery Method Room Air Room Air Room Air 02/22/23 15:31 02/22/23 16:30 02/22/23 17:30 Temperature Temperature Source Pulse Rate 80 72 67 Pulse Rate [Left Radial] Respiratory Rate Blood Pressure 114/57 L 130/66 139/73 Blood Pressure [Right Arm] Blood Pressure Mean 86 Blood Pressure Mean [Right Arm] 02 Sat by Pulse Oximetry 95 96 96 Oxygen Delivery Method Room Air 02/22/23 18:00 02/22/23 18:30 Temperature Temperature Source Pulse Rate 74 72 Pulse Rate [Left Radial] Respiratory Rate Blood Pressure 129/78 133/73 Blood Pressure [Right Arm] Blood Pressure Mean 92 Blood Pressure Mean [Right Arm] 02 Sat by Pulse Oximetry 94 L 91 L Oxygen Delivery Method Nasal Cannula Lab Data Labs: Lab Results 02/22/23 15:02: WBC 11.3 H, RBC 4.15 L, Hgb 11.9 L, Hct 37.1, MCV 89.4, MCH 28.7, MCHC 32.1, RDW 14.2, Plt Count 445 H, MPV 8.4, Neut % (Auto) 69.5, Lymph % (Auto) 22.9, Hill % (Auto) 5.0, Eos % (Auto) 1.9, Baso % (Auto) 0.8, Neut # (Auto) 7.8, Lymph # (Auto) 2.6, Hill # (Auto) 0.6, Eos # (Auto) 0.2, Baso # (Auto) 0.1, PT 10.8, INR 1.00, APTT 27.7, Sodium 142, Potassium 4.1, Chloride 101, Carbon Dioxide 33 H, Anion Gap 12.1, BUN 15, Creatinine 1.00, Estimated Creat Clear 87, Estimated GFR 55 L, Est GFR ( Amer) 67, Glucose 111 H, Calcium 9.8, Total Bilirubin 0.4, AST 32, ALT 27, Alkaline Phosphatase 113, Troponin I < 0.01, Total Protein 8.5 H, Albumin 4.4, Globulin 4.1 H, Albumin/Globulin Ratio 1.1 02/22/23 18:08: Troponin I < 0.01 02/22/23 15:02 02/22/23 15:02 Response Orders (Tests/Meds): ED MEDICATIONS Discontinued Medications Generic Name Dose Route Start Last Admin Trade Name Kirbyq PRN Reason Stop Dose Admin Albuterol/Ipratropium 3 ml 02/22/23 16:25 02/22/23 17:45 Ipratropium/Albuterol 3 Ml Neb IH 02/22/23 16:26 3 ml ONCE ONE Administration Iopamidol 150 ml 02/22/23 16:57 02/22/23 16:59 Iopamidol-370 (76%);100ml Bottle IV 02/22/23 16:58 150 ml ONCE ONE Administration Lorazepam 0.5 mg 02/22/23 16:25 02/22/23 16:37 Lorazepam 2mg/Ml Vial IV 02/22/23 16:26 0.5 mg ONCE ONE Administration Sodium Chloride 50 ml 02/22/23 16:57 02/22/23 16:59 0.9 % Sodium Chloride 50 Ml Vial IV 02/22/23 16:58 50 ml ONCE ONE Administration Sodium Chloride 10 ml 02/22/23 16:57 02/22/23 16:59 Sodium Chloride 0.9% 10ml Syr (Rad Only) IV 02/22/23 16:58 10 ml ONCE ONE Administration ORDERS Category Date Time Status CT angio chest PE protocol Stat Cat Scan 02/22/23 16:[address] angio head Stat Cat Scan 02/22/23 16:[address] angio neck Stat Cat Scan 02/22/23 16:[address] head/brain wo con Stat Cat Scan 02/22/23 Completed CBC [Complete Blood Count Auto Diff] Stat Lab 02/22/23 15:02 Completed CMP [Comprehensive Metabolic Panel] Stat Lab 02/22/23 15:02 Completed INR [Prothrombin Time INR] Stat Lab 02/22/23 15:02 Completed PTT [Activated Partial Thrombo Time] Stat Lab 02/22/23 15:02 Completed Trop I [Troponin I] Stat Lab 02/22/23 15:02 Completed Troponin I Q3H Lab 02/22/23 18:08 Completed Troponin I Q3H Lab 02/22/23 21:30 Ordered ECG initial Besson Routine Y 02/22/23 14:56 Completed MDM Narrative Medical Decision Narrative: Considered multiple causes of patient's transient episode of exertional shortness of breath, lightheadedness, nausea, dizziness, left face and left hand tingling including ACS, worsening of her PEs despite taking Eliquis, TIA, vasova gal presyncope, hypoglycemia, anemia, among others. For this reason obtain broad laboratory evaluation including CT head without, CTA head, neck, PE protocol of the chest, as well as laboratory workup. Lower concern for infectious causes as patient has had no symptoms otherwise today outside of this episode. No fevers or dysuria or worsened cough. Labs I independently reviewed and interpreted showed no significant abnormalities of CBC, CMP, or troponin. Troponin below the detectable level on serial labs. EKG I independently reviewed and interpreted showed normal rate, regular rhythm, no significant ST segment elevation, normal sinus rhythm. CTs I independently reviewed and interpreted showed no hemorrhagic or ischemic stroke or severe stenosis, no signs of CVA or high likelihood of recurrent TIA. No PE or pneumonia or other concerns. Discussed with patient that at this time she has had no signs of emergent heart, lung, or neurologic problems to explain her transient dizziness. Rather she likely had a vasovagal or orthostatic presyncope. Advised her to stay hydrated and follow closely with her PCP and cardiology. Discharged while stable with referral to cardiology.
--- NOTE | 2023-02-22 16:32 | CT_ITS ---
PROCEDURE INFORMATION: Exam: CTA Head With Contrast, Arteriography Exam date and time: 02/22/2023 4:45 PM Age: 67 years old Clinical indication: Syncope and collapse; Additional info: Near syncope TECHNIQUE: Imaging protocol: Computed tomographic angiography of the head with contrast. Exam focused on the arteries. 3D rendering (Not supervised by radiologist): MIP and/or 3D reconstructed images were created by the technologist. Radiation optimization: All CT scans at this facility use at least one of these dose optimization techniques: automated exposure control; mA and/or kV adjustment per patient size (includes targeted exams where dose is matched to clinical indication); or iterative reconstruction. Contrast material: ISOVUE; Contrast volume: 100 ml; Contrast route: INTRAVENOUS (IV); COMPARISON: 1. CT HEAD/BRAIN WO CON 02/22/2023 3:[address] ANGIO HEAD 05/16/2020 3:[address] HEAD/BRAIN WO CON 08/01/2022 1:20 PM FINDINGS: Tubes, catheters and devices: There is a left chest implanted cardiac device. ANTERIOR CIRCULATION: Right internal carotid artery: Intracranial segment is patent with no significant stenosis. No aneurysm. Right middle cerebral artery: No occlusion or significant stenosis. No aneurysm. Right anterior cerebral artery: No occlusion or significant stenosis. No aneurysm. Left internal carotid artery: Intracranial segment is patent with no significant stenosis. No aneurysm. Left middle cerebral artery: No occlusion or significant stenosis. No aneurysm. Left anterior cerebral artery: No occlusion or significant stenosis. No aneurysm. POSTERIOR CIRCULATION: Right vertebral artery: No occlusion or significant stenosis. No aneurysm. Left vertebral artery: No occlusion or significant stenosis. No aneurysm. Basilar artery: No occlusion or significant stenosis. No aneurysm. Right posterior cerebral artery: No occlusion or significant stenosis. No aneurysm. Left posterior cerebral artery: No occlusion or significant stenosis. No aneurysm. Brain: No definite mass, mass effect, or midline shift. Cerebral ventricles: No ventriculomegaly. Bones/joints: Unremarkable. No acute fracture. Soft tissues: Unremarkable. Other findings: There are atherosclerotic calcifications of the carotid bulbs bilaterally. IMPRESSION: No large vessel stenosis or occlusion.
--- NOTE | 2023-02-22 16:32 | CT_ITS ---
PROCEDURE INFORMATION: Exam: CTA Neck With Contrast Exam date and time: 02/22/2023 4:45 PM Age: 67 years old Clinical indication: Syncope and collapse; Additional info: Near syncope TECHNIQUE: Imaging protocol: Computed tomographic angiography of the neck with contrast. Exam focused on the cervical segments of the vasculature. 3D rendering (Not supervised by radiologist): MIP and/or 3D reconstructed images were created by the technologist. Radiation optimization: All CT scans at this facility use at least one of these dose optimization techniques: automated exposure control; mA and/or kV adjustment per patient size (includes targeted exams where dose is matched to clinical indication); or iterative reconstruction. Contrast material: ISOVUE; Contrast volume: 100 ml; Contrast route: INTRAVENOUS (IV); COMPARISON: 1. CT ANGIO NECK 05/16/2020 3:[address] ANGIO HEAD 02/22/2023 4:45 PM FINDINGS: Tubes, catheters and devices: There is a left chest implanted cardiac device. Right common carotid artery: There is atherosclerotic calcification of the right carotid bulb with less than 50% stenosis of the internal carotid artery. Right internal carotid artery: No stenosis of the extracranial segment. No dissection or occlusion. Right external carotid artery: No occlusion or stenosis of the origin. Left common carotid artery: There is atherosclerotic calcification of the left carotid bulb with less than 50% stenosis of the internal carotid artery. Left internal carotid artery: No stenosis of the extracranial segment. No dissection or occlusion. Left external carotid artery: No occlusion or stenosis of the origin. Right vertebral artery: No stenosis. No dissection or occlusion. Left vertebral artery: No stenosis. No dissection or occlusion. Thyroid: There is heterogeneity of the thyroid gland for which nonemergent thyroid ultrasound should be considered. Soft tissues: Normal. No significant soft tissue swelling. Bones/joints: No acute fracture. Lungs: There are scattered calcified granulomas in the lungs which most likely reflect prior granulomatous disease. IMPRESSION: 1. Atherosclerotic calcifications of the carotid bulbs without hemodynamically significant stenosis of the internal carotid arteries. 2. There is heterogeneity of the thyroid gland for which nonemergent thyroid ultrasound should be considered. REFERENCES: NASCET CRITERIA. The degree of stenosis in the cervical segment of the internal carotid artery is based on NASCET criteria. Normal is no stenosis. Mild is less than 50% stenosis. Moderate is 50-69% stenosis. Severe is 70% to 99% stenosis. Total occlusion is no detectable patent lumen.
--- NOTE | 2023-02-22 16:32 | CT_ITS ---
PROCEDURE INFORMATION: Exam: CTA Chest With Contrast Exam date and time: 02/22/2023 4:51 PM Age: 67 years old Clinical indication: Other: Syncope; Additional info: Near syncope TECHNIQUE: Imaging protocol: Computed tomographic angiography of the chest with contrast. Exam focused on the arteries. 3D rendering (Not supervised by radiologist): MIP and/or 3D reconstructed images were created by the technologist. Radiation optimization: All CT scans at this facility use at least one of these dose optimization techniques: automated exposure control; mA and/or kV adjustment per patient size (includes targeted exams where dose is matched to clinical indication); or iterative reconstruction. Contrast material: ISOVUE; Contrast volume: 50 ml; Contrast route: INTRAVENOUS (IV); COMPARISON: 1. CT ANGIO CHEST PE PROTOCOL 06/25/2022 7:[address] angio chest 02/26/2017 9:[address] lung screening 03/06/2017 12:14 PM FINDINGS: Tubes, catheters and devices: There is a left chest implanted cardiac device. Pulmonary arteries: There is fair opacification of the pulmonary arterial tree. No central pulmonary arterial filling defect is seen. Aorta: There is atherosclerotic disease of the visualized aorta and its major branch vessels. Other arteries: Subsegmental vessels are not well evaluated due to contrast timing. Lungs: There are scattered areas of emphysema throughout the lungs. Scattered areas of bronchial wall thickening which are likely chronic inflammatory. A few areas of subpleural reticulation are noted, nonspecific. Stable 3 mm left lower lobe pulmonary nodule (image 43 series 3). Further follow-up should be based on patient's underlying risk factors. Pleural spaces: Unremarkable. No pneumothorax. No pleural effusion. Heart: Unremarkable. No cardiomegaly. No pericardial effusion. Coronary arteries: There is mild coronary atherosclerotic disease/calcification although evaluation is limited secondary to the non gated nature of the study. Lymph nodes: Calcified granulomas calcified mediastinal nodes. There are mildly prominent mediastinal lymph nodes which are nonenlarged. Liver: There are calcifications in the liver which most likely reflect calcified granulomas. Gallbladder and bile ducts: There is cholelithiasis within an otherwise normal gallbladder. Spleen: There are multiple calcifications in the spleen most likely reflects small granulomas. Bones/joints: There is diffuse degenerative disease of the visualized osseous structures. Soft tissues: Unremarkable. IMPRESSION: 1. No central pulmonary arterial filling defect is seen. Subsegmental vessels are not well evaluated due to contrast timing. 2. No dense parenchymal consolidation, pleural effusion, or pneumothorax. 3. Stable 3 mm left lower lobe pulmonary nodule (image 43 series 3). Further follow-up should be based on patient's underlying risk factors. COMMENTS: The presence of pulmonary emphysema on CT is an independent risk factor for lung cancer. In the absence of a history or active diagnosis of lung cancer, it is recommended that this patient with emphysema be evaluated for enrollment in a low dose CT lung cancer screening program. REFERENCES: Nichol Healy, et al. Guidelines for Management of Incidental Pulmonary Nodules Detected on CT Images: From the Fleischner Society 2017. Radiology. 2017;284(1):228-243.
[2023-02-22] MEDS: LORazepam 2MG/ML VIAL 0.5 MG IV (16:37)
[2023-02-22] MEDS: SODIUM CHLORIDE 0.9% 10ML SYR (RAD ONLY) 10 ML IV (16:59)
[2023-02-22] MEDS: IOPAMIDOL-370 (76%);100ML BOTTLE 150 ML IV (16:59)
[2023-02-22] MEDS: 0.9 % SODIUM CHLORIDE 50 ML VIAL IV (16:59)
[2023-02-22] MEDS: IPRATROPIUM/ALBUTEROL 3 ML NEB IH (17:45)
[2023-02-22 18:53] LABS: Troponin I < 0.01 ng/ml (0.00-0.034)
== END 2023-02-22 19:30 | disposition home or self-care (01) ==
PROVIDERS: Emergency Provider Emergency Medicine; PCP Physician Assistant
DX: R55 Syncope and collapse (principal); R06.02 Shortness of breath; R20.2 Paresthesia of skin; I25.10 Atherosclerotic heart disease of native coronary artery without angina pectoris; J44.9 Chronic obstructive pulmonary disease, unspecified; E78.5 Hyperlipidemia, unspecified; I10 Essential (primary) hypertension; F17.210 Nicotine dependence, cigarettes, uncomplicated
CPT/HCPCS: 36415; 70450; 70496; 70498; 71275; 80053; 84484; 85025; 85610; 85730; 93005; 96374; 99285; Q9967

== ENCOUNTER 2023-02-25 17:54 | Emergency (ER) | payer MEDICARE, SELFPAY ==
[2023-02-25] VITALS (11 sets, daily range): BP systolic 121–145; BP diastolic 59–72; PULSE 68–76; RESP 12–24; TEMP 36.7; O2SAT 91–96; BMI 38.4
--- NOTE | 2023-02-25 17:55 | ED_ITS ---
Discharge Plan Disposition Patient Disposition: Home, Self-Care Condition: Good Prescriptions Prescriptions: New benzonatate 100 mg capsule 100 mg PO BID PRN (Reason: cough) Qty: 20 0RF lidocaine 5 % adhesive patch,medicated 1 patch topical Q24H Qty: 15 0RF Rx Instructions: leave on most painful area for up to 12 hrs methocarbamol 500 mg tablet 500 mg PO Q8H Qty: 90 0RF No Action Eliquis 5 mg tablet 5 mg PO BID Qty: 180 1RF meclizine 25 mg tablet 25 mg PO DAILY PRN Patient Comments: TAKE 1 TABLET BY MOUTH TWICE DAILY NEEDED FOR DIZZINESS spironolactone 50 mg tablet 50 mg PO BID Qty: 180 3RF metoprolol succinate 50 mg tablet extended release 24 hr 50 mg PO DAILY Qty: 90 3RF lisinopril 5 mg tablet 5 mg PO DAILY Qty: 90 3RF atorvastatin 40 mg tablet See Rx Instructions .ROUTE .COMPLEX Qty: 90 1RF Dose Instruction: Take 1 tablet by mouth once daily Rx Instructions: Take 1 tablet by mouth once daily pantoprazole 40 mg tablet,delayed release (DR/EC) See Rx Instructions .ROUTE .COMPLEX Qty: 90 0RF Dose Instruction: TAKE 1 TABLET BY MOUTH ONCE DAILY FOR STOMACH Rx Instructions: TAKE 1 TABLET BY MOUTH ONCE DAILY FOR STOMACH albuterol sulfate 1.25 mg/3 mL solution for nebulization 1.25 mg inhalation QIDP PRN (Reason: Breathing Problems) Patient Comments: USE 1 VIAL IN NEBULIZER 4 TIMES DAILY NEEDED FOR SHORTNESS OF BREATH FOR WHEEZING aspirin 81 mg Tablet 81 mg PO DAILY Referrals Follow up/Referrals: Ally Carranza PA [Primary Care Provider] - See instructions Activity Restrictions/Add. Instructions Additional Instructions/Restrictions: Please follow-up with your athletic agent. Please return with any new or worsening symptoms. You may additionally take Tylenol as needed for your pain. Clinical Impressions Clinical Impression: Acute chest wall pain Discharge ED Provider: Pramod Mccormack General Adult HPI General Chief complaint: Chest Pain Stated complaint: chest pain Time Seen by Provider: 02/25/23 17:55 History of Present Illness HPI narrative: Patient describes substernal nonexertional nonradiating nonpleuritic nonpositional moderate in severity chest pain in the absence of palpitations with no previous therapies and history of coronary artery disease. Symptoms were gradual in onset starting shortly prior to arrival, stable in course. Patient notes history of sick sinus syndrome status post pacemaker placement. Follows regularly with athletic agent. No sick contacts. No exacerbating or alleviating factors that she has been able to identify. Related Data Home Medications Medication Instructions Recorded Confirmed albuterol sulfate 1.25 mg/3 mL 1.25 mg inhalation QIDP PRN 06/26/22 01/16/23 solution for nebulization Breathing Problems aspirin 81 mg tablet 81 mg PO DAILY Heart health 06/26/22 01/16/23 meclizine 25 mg tablet 25 mg PO DAILY PRN 01/16/23 01/16/23 Previous Rx's Medication Instructions Recorded metoprolol succinate 50 mg 50 mg PO DAILY High blood pressure 07/04/22 tablet,extended release 24 hr #90 tabs spironolactone 50 mg tablet 50 mg PO BID Fluid #180 tabs 07/04/22 lisinopril 5 mg tablet 5 mg PO DAILY High blood pressure 08/04/22 #90 tabs apixaban 5 mg tablet (Eliquis) 5 mg PO BID #180 tabs 09/19/22 atorvastatin 40 mg tablet See Rx Instructions .Route 09/22/22 .COMPLEX #90 tabs pantoprazole 40 mg tablet,delayed See Rx Instructions .Route 11/14/22 release .COMPLEX #90 tabs benzonatate 100 mg capsule 100 mg PO BID PRN cough #20 caps 02/25/23 lidocaine 5 % topical patch 1 patch topical Q24H #15 ea 02/25/23 methocarbamol 500 mg tablet 500 mg PO Q8H #90 tabs 02/25/23 Allergies Allergy/AdvReac Type Severity Reaction Status Date / Time latex [LATEX] Allergy Intermediate I-RASH Verified 01/16/23 16:40 codeine [CODEINE] Allergy Mild NA-NAUSEA, Verified 01/16/23 16:40 CHEST PRESSURE tuberculin,PPD,multi-puncture Allergy Mild POSITIVE Verified 01/16/23 16:40 [TUBERCULIN,PPD,MULTI-PUNCTURE] REACTOR sulfamethoxazole Allergy Unknown RASH,VOMITI Verified 01/16/23 16:40 [From BACTRIM] NG trimethoprim [From BACTRIM] Allergy Unknown Verified 01/16/23 16:40 PFS PFS Disclaimer: The information contained in this section may have been updated after the patient was seen, as this information can be updated by other users. Medical History Allergies CAD (coronary artery disease) Cardiac pacemaker in situ Chronic anemia Chronic low back pain COPD (chronic obstructive pulmonary disease) Gallstones GERD (gastroesophageal reflux disease) Headache Hyperlipidemia Hypertension Irritable bowel syndrome (IBS) Renal cyst Sleep apnea Tobacco dependence Surgical History H/O total hysterectomy H/O tubal ligation History of pacemaker S/P cardiac cath Family History Mother Family history of diabetes mellitus type II Cancer Kidney failure History of open heart surgery Father Family history of acute heart failure Family history of arthritis Social History Smoking Status: Current every day smoker tobacco type: cigarettes packs per day: 1 years smoked: 45 quit status: considering quitting second hand exposure: Yes alcohol intake: never counseling provided: none substance use type: denies use current occupational status: disabled Travel in the last 8 weeks: None household members: spouse housing: house current occupational exposures/hazards: No caffeine: Yes ROS Obtained: Yes Systems reviewed as appropriate & no additional complaints except as documented As per HPI Physical Exam General General appearance: alert and in no apparent distress Head Head exam: atraumatic and normocephalic Eye Eye exam: Present normal appearance Neck Neck exam: Present normal inspection Chest Chest inspection: Present normal inspection and symmetric chest wall rise Respiratory Respiratory exam: Present normal lung sounds bilaterally; Absent respiratory distress Cardiovascular Cardiovascular exam: Present regular rate and normal rhythm Abdominal Exam Abdominal exam: Present soft Neurological Exam Neurological exam: Present alert and oriented X3 Psychiatric Psychiatric exam: Present normal affect and normal mood Skin Skin exam: Present warm and dry Medical Decision Making Medical Records Medical records reviewed: Yes I reviewed the patient's medical records. John Inquiry Pt receiving controlled substance: No Vital Signs: 02/25/23 17:54 02/25/23 18:01 02/25/23 18:30 Temperature 98.1 F Temperature Source Oral Pulse Rate 74 72 Pulse Rate [Right Radial] 74 Respiratory Rate 22 20 Blood Pressure 128/63 Blood Pressure [Right Arm] 131/70 Blood Pressure Mean [Right Arm] 90 Blood Pressure Source Blood Pressure Position 02 Sat by Pulse Oximetry 95 95 Oxygen Delivery Method Room Air Room Air 02/25/23 19:00 02/25/23 19:30 02/25/23 20:00 Temperature Temperature Source Pulse Rate 69 68 75 Pulse Rate [Right Radial] Respiratory Rate 24 20 19 Blood Pressure 131/68 129/59 L 121/69 Blood Pressure [Right Arm] Blood Pressure Mean [Right Arm] Blood Pressure Source Blood Pressure Position 02 Sat by Pulse Oximetry 93 L Oxygen Delivery Method Room Air 02/25/23 20:30 02/25/23 21:00 02/25/23 21:30 Temperature Temperature Source Pulse Rate 73 73 71 Pulse Rate [Right Radial] Respiratory Rate 17 19 20 Blood Pressure 131/70 145/72 H 133/65 Blood Pressure [Right Arm] Blood Pressure Mean [Right Arm] Blood Pressure Source Blood Pressure Position 02 Sat by Pulse Oximetry 96 94 L Oxygen Delivery Method 02/25/23 22:01 02/25/23 22:29 Temperature 98.1 F Temperature Source Oral Pulse Rate 76 76 Pulse Rate [Right Radial] Respiratory Rate 12 14 Blood Pressure 128/60 128/60 Blood Pressure [Right Arm] Blood Pressure Mean [Right Arm] Blood Pressure Source Automatic Cuff Blood Pressure Position Sitting 02 Sat by Pulse Oximetry 91 L Oxygen Delivery Method Room Air Lab Data Lab Results 02/25/23 17:55: WBC 12.1 H, RBC 3.70 L, Hgb 10.4 L, Hct 33.5 L, MCV 90.5, MCH 28.1, MCHC 31.0 L, RDW 14.2, Plt Count 428 H, MPV 10.5 H, Neut % (Auto) TNP, Lymph % (Auto) TNP, [place] % (Auto) TNP, Eos % (Auto) TNP, Baso % (Auto) TNP, Neut # (Auto) TNP, Lymph # (Auto) TNP, [place] # (Auto) TNP, Eos # (Auto) TNP, Baso # (Auto) TNP, Sodium 140, Potassium 4.2, Chloride 104, Carbon Dioxide 31 H, Anion Gap 9.2, BUN 15, Creatinine 1.10 H, Estimated Creat Clear 76, Estimated GFR 50 L , Est GFR ( Amer) 60, Glucose 92, Calcium 9.2, Total Bilirubin 0.4, AST 34, ALT 28, Alkaline Phosphatase 109, Troponin I < 0.01, NT-Pro-B Natriuret Pep 45.7, Total Protein 8.0, Albumin 4.1, Globulin 3.9 H, Albumin/Globulin Ratio 1.1 02/25/23 18:15: SARS-CoV-2 (PCR) Not detected, Influenza A Untype (PCR) Not detected, Influenza Type B (PCR) Not detected 02/25/23 20:55: Troponin I < 0.01 02/25/23 17:55 02/25/23 17:55 Orders (Tests/Meds): ED MEDICATIONS Discontinued Medications Generic Name Dose Route Start Last Admin Trade Name Freq PRN Reason Stop Dose Admin Aspirin 325 mg 02/25/23 18:43 02/25/23 19:02 Aspirin 325mg Tablet PO 02/25/23 18:44 325 mg ONCE ONE Administration Nitroglycerin 0.4 mg 02/25/23 18:43 Nitroglycerin 0.4mg Sl Tablet SL 03/27/23 18:42 Q5MINP PRN Chest Pain ORDERS Category Date Time Status XR chest 2V Stat Exams 02/25/23 18:06 Completed BNP [Brain Natriuretic Peptide] Stat Lab 02/25/23 17:55 Completed Complete Blood Count Auto Diff Stat Lab 02/25/23 17:55 Completed Comprehensive Metabolic Panel Stat Lab 02/25/23 17:55 Completed Rapid PCR Covid and Flu A/B Stat Lab 02/25/23 18:15 Completed Troponin I Q3H Lab 02/25/23 17:55 Completed Troponin I Q3H Lab 02/25/23 20:55 Completed ECG initial [place] Routine Y 02/25/23 17:55 Completed HEART Score History (anamnesis): Moderately suspicious ECG: Non-specific disturbance Age: >65 years Risk factors: Atherosclerosis history Troponin: </= normal limit HEART Score: 6 Medical Decision Narrative: Patient with history and exam per above presenting for evaluation of chest pain Diagnoses considered include ACS, aortic dissection, pericarditis, PE, pneumothorax, pneumonia, GERD, costochondritis, referred pain ED workup and treatment included: ED MEDICATIONS Discontinued Medications Generic Name Dose Route Start Last Admin Trade Name Freq PRN Reason Stop Dose Admin Aspirin 325 mg 02/25/23 18:43 02/25/23 19:02 Aspirin 325mg Tablet PO 02/25/23 18:44 325 mg ONCE ONE Administration Nitroglycerin 0.4 mg 02/25/23 18:43 Nitroglycerin 0.4mg Sl Tablet SL 03/27/23 18:42 Q5MINP PRN Chest Pain ORDERS Category Date Time Status XR chest 2V Stat Exams 02/25/23 18:06 Completed BNP [Brain Natriuretic Peptide] Stat Lab 02/25/23 17:55 Completed Complete Blood Count Auto Diff Stat Lab 02/25/23 17:55 Completed Comprehensive Metabolic Panel Stat Lab 02/25/23 17:55 Completed Rapid PCR Covid and Flu A/B Stat Lab 02/25/23 18:15 Completed Troponin I Q3H Lab 02/25/23 17:55 Completed Troponin I Q3H Lab 02/25/23 20:55 Completed ECG initial [place] Routine Y 02/25/23 17:55 Completed Labs were independently interpreted by me, significant for troponins undetectable, BNP within normal limits Imaging was independently visualized and interpreted by me, significant for no acute findings EKG was independently visualized and interpreted by me significant for sinus arrhythmia, normal axis, no acute ST changes. Patient reported improvement of symptoms upon repeat evaluation. Symptoms at this time are thought to be most consistent with angina versus costochondritis. Patient is deemed stable for discharge at this time with return precautions after shared decision making. I discussed my clinical impression with patient and answered all questions. Specific return precautions were given, with understanding and agreement. Patient will follow up with primary care provider as needed. Critical Care Critical Care Time Critical Care Time: No
--- NOTE | 2023-02-25 17:55 | ECG_ITS ---
APPROVED REPORT Exam: Resting ECG HR:78 bpm ECG Measurements Heart Rate 78 AXES ME 163 P 57 QRSd 96 QRS 58 QT 345 T 32 QTc 378 Conclusion SINUS RHYTHM WITH SINUS ARRHYTHMIA NONSPECIFIC T-WAVE ABNORMALITY BORDERLINE ECG UNCONFIRMED REPORT Electronically signed by : Xavi Sosa MD 02/26/2023 15:12:31
--- NOTE | 2023-02-25 18:06 | XR_ITS ---
PROCEDURE INFORMATION: Exam: XR Chest Exam date and time: 02/25/2023 6:05 PM Age: 67 years old Clinical indication: Sternal or substernal pain; Prior surgery; Surgery date: 6+ months; Surgery type: Pacemaker 5 yrs ago; Additional info: Chest pain TECHNIQUE: Imaging protocol: Radiologic exam of the chest. Views: 2 views. Total images: 2 COMPARISON: CT ANGIO CHEST PE PROTOCOL 02/22/2023 4:51 PM FINDINGS: Tubes, catheters and devices: Status post left subclavian cardiac pacemaker. EKG leads are present. Lungs: Calcified bilateral pulmonary granuloma. No acute infiltrate or airspace consolidation. No pulmonary vascular congestion or interstitial edema. Pleural spaces: Unremarkable. No pleural effusion. No pneumothorax. Heart/Mediastinum: Unremarkable. No cardiomegaly. No mediastinal widening or hilar enlargement. Vasculature: Atherosclerotic aortic arch. Diaphragm: Mild eventration anteromedial right hemidiaphragm. Bones/joints: Mild osteopenia. Mild degenerative changes thoracic spine. Soft tissues: Breast attenuation artifact. IMPRESSION: 1. No radiographically acute cardiopulmonary process. 2. Stable chronic findings.
--- NOTE | 2023-02-25 18:14 | PC.NURSE ---
PT TO XR
[2023-02-25 18:16] LABS: Chloride 104 mmol/L (98-107); Potassium 4.2 mmoL/L (3.5-5.1); Sodium 140 mmol/L (136-145)
[2023-02-25 18:19] LABS: Alanine Aminotransferase 28 U/L (12-78); Albumin Level 4.1 g/dl (3.5-5.0); Albumin/Globulin Ratio 1.1 (1.1-1.8); Alkaline Phosphatase 109 U/L (38-126); Anion Gap 9.2 mEq/L (5-15); Aspartate Amino Transferase 34 U/L (14-36); Bilirubin,Total 0.4 mg/dl (0.2-1.3); Blood Urea Nitrogen 15 mg/dl (7-17); Calcium 9.2 mg/dl (8.4-10.2); Carbon Dioxide 31 mmol/L (22.0-30.0); Creatinine Clearance Estimated 76 mL/min (50-200); Estimated Glomerular Filt Rate 50 ml/min (>60); GFR (African American) 60 ML/MIN (>60); Globulin 3.9 g/dL (1.3-3.2); Glucose 92 mg/dl (74-100)
[2023-02-25 18:34] LABS: Troponin I < 0.01 ng/ml (0.00-0.034)
[2023-02-25 18:40] LABS: Coronavirus 19, PCR Not Detected (NotDetected); Influenza A, PCR Not Detected (NotDetected); Influenza B, PCR Not Detected (NotDetected)
[2023-02-25] MEDS: ASPIRIN 325MG TABLET 325 MG PO (19:02)
[2023-02-25 19:05] LABS: NT Pro Brain Natriuretic Pep. 45.7 pg/mL (0-125)
--- NOTE | 2023-02-25 20:55 | PC.NURSE ---
2nd trop drawn and sent to lab
[2023-02-25 21:34] LABS: Troponin I < 0.01 ng/ml (0.00-0.034)
[2023-02-25 22:03] LABS: Hematocrit 33.5 % (37.0-47.0); Hemoglobin 10.4 g/dL (12.2-16.2); Mean Corpuscular Hemoglobin 28.1 pg (27.0-31.2); Mean Corpuscular Volume 90.5 fl (81-99); Mean Platelet Volume 10.5 fl (7.4-10.4); Platelet Count 428 K/mm3 (142-424); Red Cell Distribution Width 14.2 % (11.5-17.5)
[2023-02-25 22:07] LABS: White Blood Count 12.1 K/mm3 (4.8-10.8)
== END 2023-02-25 22:32 | disposition home or self-care (01) ==
PROVIDERS: Emergency Provider Emergency Medicine; PCP Physician Assistant
DX: R07.89 Other chest pain (principal); I49.9 Cardiac arrhythmia, unspecified; F17.210 Nicotine dependence, cigarettes, uncomplicated; J44.9 Chronic obstructive pulmonary disease, unspecified; E78.5 Hyperlipidemia, unspecified; I11.9 Hypertensive heart disease without heart failure; I25.10 Atherosclerotic heart disease of native coronary artery without angina pectoris; K21.9 Gastro-esophageal reflux disease without esophagitis; Z95.0 Presence of cardiac pacemaker
CPT/HCPCS: 71046; 80053; 83880; 84484; 85025; 87636; 93005; 99284

== ENCOUNTER 2023-04-03 13:40 | Outpatient (CLI) | payer MEDICARE, MEDICAID, SELFPAY ==
[2023-04-03 14:11] LABS: Basophils # 0.1 K/mm3 (0-0.2); Basophils % 0.4 % (0.1-2.0); Eosinophils # 0.2 K/mm3 (0.0-0.4); Eosinophils % 1.5 % (0.1-12.0); Hematocrit 32.1 % (37.0-47.0); Hemoglobin 10.7 g/dL (12.2-16.2); Lymphocytes # 2.9 K/mm3 (0.7-4.5); Lymphocytes % 25.2 % (10-50); Mean Corpuscular HGB Conc 33.2 g/dL (31.8-35.4); Mean Corpuscular Hemoglobin 29.2 pg (27.0-31.2); Mean Corpuscular Volume 87.7 fl (81-99); Mean Platelet Volume 7.9 fl (7.4-10.4); Monocytes # 0.4 K/mm3 (0.1-1.0); Monocytes % 3.6 % (1.7-9.3); Neutrophils # 8.1 K/mm3 (1.8-7.8); Neutrophils % 69.3 % (37.0-80.0); Platelet Count 406 K/mm3 (142-424); Red Blood Count 3.66 M/mm3 (4.20-5.40); Red Cell Distribution Width 14.2 % (11.5-17.5); White Blood Count 11.7 K/mm3 (4.8-10.8)
[2023-04-03 15:11] LABS: Alanine Aminotransferase 23 U/L (12-78); Albumin Level 3.9 g/dl (3.5-5.0); Alkaline Phosphatase 98 U/L (38-126); Anion Gap 9.9 mEq/L (5-15); Aspartate Amino Transferase 28 U/L (14-36); Bilirubin,Direct 0.2 mg/dl (0.0-0.4); Bilirubin,Indirect 0.1 mg/dL (0.0-0.9); Bilirubin,Total 0.3 mg/dl (0.2-1.3); Bilirubin,Unconjugated 0.1 mg/dL (0.0-1.1); Blood Urea Nitrogen 17 mg/dl (7-17); Calcium 9.9 mg/dl (8.4-10.2); Carbon Dioxide 33 mmol/L (22.0-30.0); Chloride 102 mmol/L (98-107); Chol/HDL Ratio 5.4 (1-3.5); Cholesterol 163 mg/dl (140-200); Estimated Glomerular Filt Rate 50 ml/min (>60); GFR (African American) 60 ML/MIN (>60); Glucose 108 mg/dl (74-100); HDL Cholesterol 30 mg/dl (40-60); Potassium 4.9 mmoL/L (3.5-5.1); Sodium 140 mmol/L (136-145); Total Protein,Serum 7.1 g/dl (6.3-8.2); Triglycerides 268 mg/dl (30-150); VLDL Cholesterol 54 mg/dL (0-40)
[2023-04-03 15:22] LABS: Direct LDL Cholesterol 87.48 mg/dL (100-129)
[2023-04-03 15:37] LABS: Free T4 (Free Thyroxine) 1.12 ng/dl (0.78-2.19)
[2023-04-03 15:55] LABS: Thyroid Stimulating Hormone 1.03 uIU/mL (0.465-4.68)
== END 2023-04-03 23:59 ==
PROVIDERS: PCP Physician Assistant; Visit Provider Physician Assistant
DX: I11.9 Hypertensive heart disease without heart failure (principal); I25.10 Atherosclerotic heart disease of native coronary artery without angina pectoris; I26.99 Other pulmonary embolism without acute cor pulmonale; D64.9 Anemia, unspecified; E78.5 Hyperlipidemia, unspecified; Z95.0 Presence of cardiac pacemaker; J44.9 Chronic obstructive pulmonary disease, unspecified; F17.210 Nicotine dependence, cigarettes, uncomplicated
CPT/HCPCS: 36415; 80048; 80061; 80076; 83735; 84439; 84443; 85025

== ENCOUNTER 2023-05-05 14:47 | Outpatient (CLI) | payer MEDICARE, SELFPAY ==
--- NOTE | 2023-05-05 14:48 | MM_ITS ---
PROCEDURE INFORMATION: Exam: MG Bilateral Screening 3D Mammography Exam date and time: 05/05/2023 3:22 PM Age: 67 years old Clinical indication: Screening examination TECHNIQUE: Imaging protocol: Bilateral Screening tomosynthesis and 2D mammography including computer-aided detection (CAD) when performed. COMPARISON: 1. MG MM DIG SCREENING MAMM BI W/CAD 03/30/2022 3:59 PM 2. MG MM DIG SCREENING MAMM BI W/CAD 01/20/2021 3:25 PM FINDINGS: MAMMOGRAPHY: Breast composition: There are scattered areas of fibroglandular density. Mass: None. Architectural distortion: None. Calcifications: No suspicious calcifications. Asymmetric density: None. Skin thickening: None. Axillary adenopathy: None. IMPRESSION: No mammographic evidence of malignancy. Annual screening is recommended unless otherwise clinically indicated. ASSESSMENT: BI-RADS Category 1: Negative
== END 2023-05-05 23:59 ==
LOC: RAD 14:48
PROVIDERS: PCP Physician Assistant; Visit Provider Physician Assistant
DX: Z12.31 Encounter for screening mammogram for malignant neoplasm of breast (principal)
CPT/HCPCS: 77063; 77067

== ENCOUNTER 2023-07-12 13:56 | Outpatient (CLI) | payer MEDICARE, MEDICAID, SELFPAY ==
--- NOTE | 2023-07-12 13:57 | CT_ITS ---
FINAL REPORT CLINICAL HISTORY: lung cancer screening current smoker 15 cigarettes per day x 40 years COMPARISON: CTA chest dated 02/22/2023 and 06/25/2022 FINDINGS: Axial images were obtained from the lung apex to the mid abdomen by computed tomography. Low-dose protocol was utilized. CTDl vol(mGy): 2.90 DLP (mGy-cm): 101.60 FINDINGS: There is streak artifact from a left upper anterior pacemaker. There is no axillary adenopathy. There are calcified bilateral hilar and prevascular lymph nodes. The heart size is normal. There is no pericardial or pleural effusion. Limited images of the upper abdomen are unremarkable. Lung window images demonstrate multiple scattered calcified granulomas, bilaterally. There is a 3 mm nodule in the posterior left upper lobe on image 34 of series 4. This is stable compared to June 25, 2022 IMPRESSION: Lung RADS category 1. Recommend 12 month follow-up low-dose chest CT. Reviewed, Interpreted and Dictated by Arthur Spain MD Transcribed by Heide Louie Authenticated and [facility]
[2023-07-12 15:20] VITALS: PULSE 92; PULSE 96
[2023-07-12] MEDS: ALBUTEROL 0.083% 2.5 MG/3 ML NEB IH (15:20)
== END 2023-07-12 23:59 | disposition home or self-care (01) ==
LOC: RAD 13:57
PROVIDERS: PCP Physician Assistant; Visit Provider Internal Medicine Pulmonary Disease
DX: F17.210 Nicotine dependence, cigarettes, uncomplicated (principal); Z12.2 Encounter for screening for malignant neoplasm of respiratory organs; R06.09 Other forms of dyspnea
CPT/HCPCS: 71271; 94060; 94618; 94640; 94726; 94729

== ENCOUNTER 2023-07-19 13:02 | Outpatient (CLI) | payer MEDICARE, MEDICAID, SELFPAY ==
[2023-07-19 13:58] LABS: Basophils # 0.1 K/mm3 (0-0.2); Basophils % 0.8 % (0.1-2.0); Eosinophils # 0.3 K/mm3 (0.0-0.4); Eosinophils % 2.2 % (0.1-12.0); Hematocrit 33.2 % (37.0-47.0); Hemoglobin 10.5 g/dL (12.2-16.2); Lymphocytes # 3.2 K/mm3 (0.7-4.5); Lymphocytes % 29.1 % (10-50); Mean Corpuscular HGB Conc 31.6 g/dL (31.8-35.4); Mean Corpuscular Hemoglobin 28.6 pg (27.0-31.2); Mean Corpuscular Volume 90.5 fl (81-99); Mean Platelet Volume 8.1 fl (7.4-10.4); Monocytes # 0.5 K/mm3 (0.1-1.0); Monocytes % 4.5 % (1.7-9.3); Neutrophils # 6.9 K/mm3 (1.8-7.8); Neutrophils % 63.4 % (37.0-80.0); Platelet Count 410 K/mm3 (142-424); Red Blood Count 3.67 M/mm3 (4.20-5.40); Red Cell Distribution Width 14.7 % (11.5-17.5); White Blood Count 10.9 K/mm3 (4.8-10.8)
[2023-07-24 00:06] LABS: D001-IgE D pteronyssinus 0.55 kU/L (Class I); D002-IgE D farinae 0.48 kU/L (Class I); E001-IgE Cat Dander <0.10 kU/L (Class 0); E005-IgE Dog Dander <0.10 kU/L (Class 0); E072-IgE Mouse Urine <0.10 kU/L (Class 0); G002-IgE Bermuda Grass <0.10 kU/L (Class 0); G006-IgE Timothy Grass 0.65 kU/L (Class II); I006-IgE Cockroach, German 0.31 kU/L (Class 0/I); Immunoglobulin E, Total 67 IU/mL (6-495); M001-IgE Penicillium chrysogen 0.13 kU/L (Class 0/I); M002-IgE Cladosporium herbarum <0.10 kU/L (Class 0); M003-IgE Aspergillus fumigatus <0.10 kU/L (Class 0); T001-IgE Maple/Box Elder <0.10 kU/L (Class 0); T003-IgE Common Silver Birch <0.10 kU/L (Class 0); T006-IgE Cedar, Mountain <0.10 kU/L (Class 0); T007-IgE Oak, White <0.10 kU/L (Class 0); T008-IgE Elm, American <0.10 kU/L (Class 0); T010-IgE Walnut <0.10 kU/L (Class 0); T011-IgE Maple Leaf Sycamore <0.10 kU/L (Class 0); T014-IgE Cottonwood <0.10 kU/L (Class 0); T015-IgE Ash, White <0.10 kU/L (Class 0); T022-IgE Pecan, Hickory <0.10 kU/L (Class 0); T070-IgE White Mulberry <0.10 kU/L (Class 0); W001-IgE Ragweed, Short <0.10 kU/L (Class 0); W011-IgE Thistle, Russian <0.10 kU/L (Class 0); W014-IgE Pigweed, Common <0.10 kU/L (Class 0); W018-IgE Sheep Sorrel <0.10 kU/L (Class 0)
== END 2023-07-19 23:59 | disposition home or self-care (01) ==
PROVIDERS: PCP Physician Assistant; Visit Provider Internal Medicine Pulmonary Disease
DX: J30.9 Allergic rhinitis, unspecified; F17.210 Nicotine dependence, cigarettes, uncomplicated
CPT/HCPCS: 36415; 82785; 85025; 86003

== ENCOUNTER 2023-10-03 12:21 | Outpatient (CLI) | payer MEDICARE, MEDICAID, SELFPAY | END 2023-10-03 23:59 | disposition home or self-care (01) | LOC: RAD 12:21 | PROVIDERS: PCP Nurse Practitioner Family; Visit Provider Nurse Practitioner | DX: I25.10 Atherosclerotic heart disease of native coronary artery without angina pectoris (principal) ==

== ENCOUNTER 2024-03-11 15:07 | Outpatient (CLI) | payer MEDICARE, MEDICAID, SELFPAY ==
--- NOTE | 2024-03-11 15:09 | CA_ITS ---
APPROVED REPORT EXAM: Comprehensive 2D, Doppler, and color-flow Echocardiogram Stock Unloader: Chana [address] RDCS Ht: 5 ft 2 in Wt: 219lbs BSA: 1.99 BP: 140/58 mmHg Indications: SOA,PACEMAKER,CAD M-Mode Dimensions RVDd 3.18 cm (0.9-2.6) LA Diam 3.81 cm (1.9-4.0) LVDd 5.10 cm (3.5-5.7) LVDs 3.67 cm (3.5-5.7) IVSd 0.89 cm (0.6-1.1) PWd 0.80 cm (0.6-1.1) EF (Teich) 54.00% FS 28.00% EDV (Teich) 123.80 mL TAPSE 1.78 (<1.7) ESV (Teich) 57.00 mL LV Diastology E Decel Time 233 (160-240 msec) E/A Ratio 0.9 Mitral Valve MV E Max Shane. 74.0 (40-130 cm/s) MV A Velocity 81.0 (40-130 cm/s) E/A Ratio 0.91 MV PHT 68.0 ms Tricuspid Valve TR P. Velocity 276.00 cm/s RAP Estimate 10.00 mmHg RVSP 40.50 mmHg Left Ventricle The left ventricle is normal size. The left ventricular systolic function is n low normal There is increased LV wall thickness. There is normal LV segmental wall motion. Transmitral Doppler flow pattern suggests impaired LV relaxation. LVEF is 50%. Right Ventricle The right ventricle is is mildly dilated. The right ventricular systolic function is normal. There is a device lead present in the right ventricle. Atria The left atrium is mildly dilated. The right atrium size is normal. There is no Doppler evidence of interatrial shunt. Aortic Valve The aortic valve is mildly thickened. There is no aortic valvular stenosis. No aortic regurgitation is present. Mitral Valve The mitral valve is normal in structure. No evidence of mitral valve stenosis. Trace mitral regurgitation. Tricuspid Valve Tricuspid valve is grossly normal in structure and function. Mild to moderate tricuspid regurgitation. RVSP is 30-35 mmHg. Pulmonic Valve The pulmonary valve is normal in structure. Trace pulmonic regurgitation. Great Vessels The aortic root is normal in size. The ascending aorta is not well-visualized. IVC is normal in size and collapses >50% with inspiration. Pericardium Trivial, anterior pericardial effusion is present. No echo indications of tamponade. Other Information Study Quality: Fair Conclusion Low normal biventricular systolic function (LVEF 50%). Mild RV dilation. Mild LA dilation. Mild to moderate TR. RVSP 30-35 mmHg. Trivial, anterior pericardial effusion. No echo indications of tamponade. Electronically signed by : Yanely Maki MD 03/17/2024 03:08:53
== END 2024-03-11 23:59 | disposition home or self-care (01) ==
LOC: RT 15:07
PROVIDERS: PCP Internal Medicine; Visit Provider Physician Assistant
DX: I51.89 Other ill-defined heart diseases (principal); R06.09 Other forms of dyspnea
CPT/HCPCS: 93306

== ENCOUNTER 2024-03-13 09:07 | Outpatient (CLI) | payer MEDICARE, MEDICAID, SELFPAY ==
[2024-03-13 17:58] LABS: Basophils # 0.1 K/mm3 (0-0.2); Basophils % 0.6 % (0.1-2.0); Eosinophils # 0.2 K/mm3 (0.0-0.4); Eosinophils % 1.7 % (0.1-12.0); Hemoglobin 10.1 g/dL (12.2-16.2); Lymphocytes # 2.9 K/mm3 (0.7-4.5); Lymphocytes % 23.3 % (10-50); Mean Corpuscular HGB Conc 30.6 g/dL (31.8-35.4); Mean Corpuscular Hemoglobin 27.4 pg (27.0-31.2); Mean Corpuscular Volume 89.7 fl (81-99); Mean Platelet Volume 10.3 fl (7.4-10.4); Monocytes # 0.8 K/mm3 (0.1-1.0); Monocytes % 6.2 % (1.7-9.3); Neutrophils # 8.4 K/mm3 (1.8-7.8); Neutrophils % 67.8 % (37.0-80.0); Platelet Count 420 K/mm3 (142-424); Red Blood Count 3.68 M/mm3 (4.20-5.40); Red Cell Distribution Width 14.7 % (11.5-17.5); White Blood Count 12.3 K/mm3 (4.8-10.8)
[2024-03-13 18:42] LABS: Alanine Aminotransferase 20 U/L (12-78); Albumin Level 3.9 g/dl (3.5-5.0); Albumin/Globulin Ratio 1.3 (1.1-1.8); Alkaline Phosphatase 103 U/L (38-126); Anion Gap 12.2 mEq/L (5-15); Aspartate Amino Transferase 25 U/L (14-36); Bilirubin,Total 0.2 mg/dl (0.2-1.3); Blood Urea Nitrogen 13 mg/dl (7-17); Calcium 9.7 mg/dl (8.4-10.2); Carbon Dioxide 28 mmol/L (22.0-30.0); Chloride 105 mmol/L (98-107); Chol/HDL Ratio 5.6 (1-3.5); Cholesterol 146 mg/dl (140-200); Estimated Glomerular Filt Rate 62 ml/min (>60); GFR (African American) 76 ML/MIN (>60); Globulin 2.9 g/dL (1.3-3.2); Glucose 90 mg/dl (74-100); HDL Cholesterol 26 mg/dl (40-60); Potassium 4.2 mmoL/L (3.5-5.1); Sodium 141 mmol/L (136-145); Total Protein,Serum 6.8 g/dl (6.3-8.2); Triglycerides 258 mg/dl (30-150); VLDL Cholesterol 52 mg/dL (0-40)
[2024-03-13 18:48] LABS: 25-OH Vitamin D, Total 32.5 ng/mL (30-100)
[2024-03-13 18:58] LABS: Direct LDL Cholesterol 79.78 mg/dL (100-129)
[2024-03-13 19:16] LABS: Thyroid Stimulating Hormone 0.96 uIU/mL (0.465-4.68)
== END 2024-03-13 23:59 | disposition home or self-care (01) ==
LOC: LAB.DROPOF 03-14 09:07
PROVIDERS: PCP Family Medicine; Visit Provider Family Medicine
DX: E78.2 Mixed hyperlipidemia (principal); I10 Essential (primary) hypertension; E55.9 Vitamin D deficiency, unspecified; I25.118 Atherosclerotic heart disease of native coronary artery with other forms of angina pectoris; Z95.0 Presence of cardiac pacemaker; D64.9 Anemia, unspecified; J44.9 Chronic obstructive pulmonary disease, unspecified; I51.89 Other ill-defined heart diseases; J43.9 Emphysema, unspecified
CPT/HCPCS: 80053; 80061; 82306; 84443; 85025

== ENCOUNTER 2024-03-21 14:01 | Outpatient (CLI) | payer MEDICARE, MEDICAID, SELFPAY ==
[2024-03-21 14:28] LABS: Reticulocyte % (Auto) 1.6 % (0.9-3.2)
[2024-03-21 14:47] LABS: Lactate Dehydrogenase 170 U/L (313-618)
[2024-03-22 15:21] LABS: Haptoglobin 404 mg/dL (37-355)
[2024-03-23 14:04] LABS: Peripheral Smear Review Scanned Result
== END 2024-03-21 23:59 | disposition home or self-care (01) ==
LOC: LAB 14:02
PROVIDERS: PCP Family Medicine; Visit Provider Internal Medicine Medical Oncology
DX: D64.9 Anemia, unspecified (principal); J44.1 Chronic obstructive pulmonary disease with (acute) exacerbation; I10 Essential (primary) hypertension; E78.5 Hyperlipidemia, unspecified; I25.10 Atherosclerotic heart disease of native coronary artery without angina pectoris; Z95.0 Presence of cardiac pacemaker
CPT/HCPCS: 36415; 83010; 83615; 85044; 86880

== ENCOUNTER 2024-04-07 06:06 | Emergency (ER) | payer MEDICARE, MEDICAID, SELFPAY ==
[2024-04-07] VITALS (8 sets, daily range): BP systolic 112–166; BP diastolic 50–92; PULSE 86–98; RESP 15–25; TEMP 36.5–36.8; O2SAT 91–96; BMI 39.3
--- NOTE | 2024-04-07 06:15 | XR_ITS ---
PROCEDURE INFORMATION: Exam: XR Chest Exam date and time: 04/07/2024 6:43 AM Age: 68 years old Clinical indication: Shortness of breath and other: Cp; Additional info: SOA, copd, cp TECHNIQUE: Imaging protocol: Radiologic exam of the chest. Views: 1 view. COMPARISON: CT LUNG SCREENING 07/12/2023 2:05 PM FINDINGS: Tubes, catheters and devices: The left chest wall pacemaker leads are noted in the right atrium and the right ventricle. Lungs: Mild bibasilar opacities likely represent atelectasis or infection. Pleural spaces: Unremarkable. No pleural effusion. No pneumothorax. Heart/Mediastinum: Unremarkable. No cardiomegaly. Bones/joints: Unremarkable. IMPRESSION: Mild bibasilar opacities likely represent atelectasis or infection. The left chest wall pacemaker leads noted in the right atrium and the right ventricle.
--- NOTE | 2024-04-07 06:17 | ECG_ITS ---
APPROVED REPORT Exam: Resting ECG HR:82 bpm ECG Measurements Heart Rate 82 AXES NC 179 P 58 QRSd 84 QRS 67 QT 336 T 49 QTc 374 Conclusion SINUS RHYTHM WITH OCCASIONAL VENTRICULAR PREMATURE COMPLEXES NONSPECIFIC ST & T-WAVE ABNORMALITY BORDERLINE ECG Electronically signed by : YESICA SOL, 04/07/2024 14:46:27
--- NOTE | 2024-04-07 06:18 | ED_ITS ---
Discharge Plan Disposition Patient Disposition: Home, Self-Care Prescriptions Prescriptions: New prednisone 50 mg tablet 50 mg PO DAILY 5 Days Qty: 5 0RF azithromycin [Zithromax Z-Ricky] 250 mg tablet 250 mg PO DAILY 4 Days Qty: 4 0RF Rx Instructions: start on day 2 of therapy No Action ipratropium-albuterol 0.5 mg-3 mg(2.5 mg base)/3 mL solution for nebulization 3 ml inhalation QID PRN (Reason: shortness of breath or wheezing) 90 Days Qty: 270 3RF budesonide-formoterol [Breyna] 160-4.5 mcg/actuation HFA aerosol inhaler 1 puff inhalation .prn lisinopril 5 mg tablet 5 mg PO DAILY Qty: 90 3RF pantoprazole 40 mg tablet,delayed release (DR/EC) See Rx Instructions .ROUTE .COMPLEX Qty: 90 3RF Dose Instruction: TAKE 1 TABLET BY MOUTH ONCE DAILY FOR STOMACH Rx Instructions: TAKE 1 TABLET BY MOUTH ONCE DAILY FOR STOMACH spironolactone 50 mg tablet 50 mg PO BID Qty: 180 3RF Eliquis 5 mg tablet 5 mg PO BID Qty: 180 1RF metoprolol succinate 50 mg tablet extended release 24 hr 50 mg PO DAILY Qty: 90 1RF atorvastatin 40 mg tablet See Rx Instructions .ROUTE .COMPLEX Qty: 90 1RF Dose Instruction: Take 1 tablet by mouth once daily Rx Instructions: Take 1 tablet by mouth once daily meclizine 25 mg tablet See Rx Instructions .ROUTE .COMPLEX Qty: 60 0RF Dose Instruction: TAKE 1 TABLET BY MOUTH ONCE DAILY NEEDED FOR DIZZINESS Rx Instructions: TAKE 1 TABLET BY MOUTH ONCE DAILY NEEDED FOR DIZZINESS aspirin 81 mg Tablet 81 mg PO DAILY Referrals Follow up/Referrals: Ritu Doherty APRN [Primary Care Provider] - See instructions Activity Restrictions/Add. Instructions Additional Instructions/Restrictions: At this time it was felt you are safe to be discharged home. If new or worsening symptoms please do not hesitate to return the emergency department. Please take your medications as prescribed and follow-up with your family doctor within the next few days to ensure things are headed in the right direction Clinical Impressions Clinical Impression: Acute exacerbation of chronic obstructive pulmonary disease Print Language Print Language: Mongolian Discharge ED Provider: Shashank Wiseman General Adult HPI <Shashank Wiseman MD - Last Filed: 04/07/24 06:54> General Chief complaint: Chest Pain Stated complaint: chest pain Time Seen by Provider: 04/07/24 06:10 History of Present Illness HPI narrative: 68-year-old female with history of COPD, obesity, coronary artery disease, PE, pacemaker presents for chest pain shortness of breath. Reports central chest tightness. Reports left jaw pain. She has a chronic cough that is stable for her. She feels nauseous and feels like something is wrong. It started relatively suddenly shortly prior to arrival. Normal sinus rhythm en route with EMS without ischemic changes on EKG. Related Data Home Medications ?Medication ?Instructions ?Recorded ?Confirmed aspirin 81 mg tablet 81 mg PO DAILY Heart health 06/26/22 03/21/24 budesonide-formoterol HFA 160 1 puff inhalation .prn 03/13/24 03/21/24 mcg-4.5 mcg/actuation aerosol inhaler (Breyna) Previous Rx's ?Medication ?Instructions ?Recorded ipratropium 0.5 mg-albuterol 3 mg 3 ml inhalation QID PRN shortness 06/07/23 (2.5 mg base)/3 mL nebulization of breath or wheezing 90 days #270 soln mL lisinopril 5 mg tablet 5 mg PO DAILY High blood pressure 07/26/23 #90 tabs pantoprazole 40 mg tablet,delayed See Rx Instructions .Route 08/21/23 release .COMPLEX #90 tabs spironolactone 50 mg tablet 50 mg PO BID Fluid #180 tabs 09/14/23 apixaban 5 mg tablet (Eliquis) 5 mg PO BID #180 tabs 09/21/23 metoprolol succinate 50 mg 50 mg PO DAILY High blood pressure 01/31/24 tablet,extended release 24 hr #90 tabs atorvastatin 40 mg tablet See Rx Instructions .Route 03/11/24 .COMPLEX #90 tabs meclizine 25 mg tablet See Rx Instructions .Route 04/03/24 .COMPLEX #60 tabs azithromycin 250 mg tablet 250 mg PO DAILY COPD Exacerbation 04/07/24 (Zithromax Z-Ricky) 4 days #4 tabs prednisone 50 mg tablet 50 mg PO DAILY 5 days #5 tabs 04/07/24 Allergies Allergy/AdvReac Type Severity Reaction Status Date / Time latex (LATEX) Allergy Intermediate I-RASH Verified 03/21/24 13:37 codeine (CODEINE) Allergy Mild NA-NAUSEA, Verified 03/21/24 13:37 CHEST PRESSURE tuberculin,PPD,multi-puncture Allergy Mild POSITIVE Verified 03/21/24 13:37 (TUBERCULIN,PPD,MULTI-PUNCTURE) REACTOR sulfamethoxazole (From Allergy Unknown RASH,VOMITI Verified 03/21/24 13:37 BACTRIM) NG trimethoprim (From BACTRIM) Allergy Unknown Verified 03/21/24 13:37 [facility] <Shashank Wiseman MD - Last Filed: 04/07/24 06:54> [facility], [facility] Disclaimer: The information contained in this section may have been updated after the patient was seen, as this information can be updated by other users. Medical History Bilateral pulmonary embolism Pulmonary embolism Atypical chest pain Pre-syncope Acute chest wall pain Diastolic dysfunction Pulmonary emphysema Dyspnea on exertion Encounter for screening for malignant neoplasm of lung History of pulmonary embolism Smoking greater than 30 pack years Renal cyst Headache Tobacco dependence Chronic low back pain GERD (gastroesophageal reflux disease) Chronic anemia Gallstones Sleep apnea COPD (chronic obstructive pulmonary disease) Irritable bowel syndrome (IBS) Allergies Hypertension Hyperlipidemia Cardiac pacemaker in situ CAD (coronary artery disease) Surgical History S/P cardiac cath H/O tubal ligation H/O total hysterectomy History of pacemaker Family History Mother Family history of diabetes mellitus type II Cancer Kidney failure History of open heart surgery Father Family history of acute heart failure Family history of arthritis Social History Smoking Status: Current every day smoker tobacco type: cigarettes packs per day: 1 years smoked: 45 quit status: considering quitting second hand exposure: Yes alcohol intake: never counseling provided: none substance use type: denies use current occupational status: disabled Travel in the last 8 weeks: None household members: spouse housing: house current occupational exposures/hazards: No caffeine: Yes Have you lived/traveled outside [place] in past 30 days?: No Contact w/someone who lives/traveled outside US past 30 days?: No Exposure to someone with infectious disease in past 14 days?: No Do you have a fever (greater than 100.4 F or 38 C)?: No Have you tested positive for COVID-19: No Exposed to someone with COVID-19 in past 14 days?: No Do you have a sore throat?: No Do you have a cough?: No Do you have any weakness?: No Do you have any diarrhea?: No Are you experiencing any unusual bleeding?: No Do you have any muscle aches/pain?: No Do you have any abdominal pain?: No Are you experiencing loss of taste or smell?: No Other Medical History Have you received the Flu Vaccine for this season: No Have you received the Pneumonia Vaccine: Yes <Shashank Wiseman MD - Last Filed: 04/07/24 06:54> ROS Obtained: Yes All systems reviewed & no additional complaints except as documented Physical Exam <Shashank Wiseman MD - Last Filed: 04/07/24 06:54> General General appearance: alert Comment: Uncomfortable appearing Head Head exam: atraumatic and normocephalic Eye Eye exam: Present normal appearance, PERRL and EOMI ENT ENT exam: Present normal oropharynx and normal external ear exam Neck Neck exam: Present normal inspection and full ROM Chest Chest inspection: Present normal inspection and symmetric chest wall rise; Absent tenderness Respiratory Respiratory exam: Present wheezes (Bilateral, faint.) and other (Patient mildly tachypneic) Cardiovascular Cardiovascular exam: Present regular rate and normal rhythm Abdominal Exam Abdominal exam: Present soft; Absent distention, tenderness or guarding Extremities Exam Extremities exam: Present normal inspection; Absent edema or joint swelling Back Exam Back exam: Present normal inspection; Absent tenderness Neurological Exam Neurological exam: Present alert and oriented X3; Absent motor sensory deficit Psychiatric Psychiatric exam: Present normal affect and normal mood Skin Skin exam: Present warm, dry and normal color Lymphatic Lymphatic Findings: no adenopathy Medical Decision Making <Shashank Wiseman MD - Last Filed: 04/07/24 06:54> Medical Records Medical records reviewed: Yes I reviewed the patient's medical records. Screening: Per USPSTF and CDC recommendations, given the prevalence of disease in our region, it is our hospital?s policy to screen for HIV and viral Hepatitis for all patients aged 18 and over and those with ongoing risk factors. John Inquiry Pt receiving controlled substance: No John was queried for this patient: No Vital Signs: 04/07/24 06:06 04/07/24 06:31 04/07/24 06:47 Temperature 97.7 F Temperature Source Oral Pulse Rate 91 H 98 H Pulse Rate [Left] 96 H Respiratory Rate 15 21 Blood Pressure 125/62 Blood Pressure [Right Arm] 166/92 H Blood Pressure Mean [Right Arm] 116 Blood Pressure Position [Right Arm] Supine 02 Sat by Pulse Oximetry 96 92 L Oxygen Delivery Method Room Air 04/07/24 07:01 04/07/24 07:30 04/07/24 08:01 Temperature Temperature Source Pulse Rate 96 H 97 H 86 Pulse Rate [Left] Respiratory Rate 15 25 H 25 H Blood Pressure 126/50 L 133/53 L 112/53 L Blood Pressure [Right Arm] Blood Pressure Mean [Right Arm] Blood Pressure Position [Right Arm] 02 Sat by Pulse Oximetry 92 L 92 L 91 L Oxygen Delivery Method 04/07/24 08:35 Temperature Temperature Source Pulse Rate 90 Pulse Rate [Left] Respiratory Rate 19 Blood Pressure 137/70 Blood Pressure [Right Arm] Blood Pressure Mean [Right Arm] Blood Pressure Position [Right Arm] 02 Sat by Pulse Oximetry 93 L Oxygen Delivery Method Room Air Lab Data Lab results reviewed: Yes I reviewed the patient's lab results. Lab Results 04/07/24 06:10: WBC 13.8 H, RBC 3.68 L, Hgb 10.1 L, Hct 32.5 L, MCV 88.3, MCH 27.4, MCHC 31.1 L, RDW 14.6, Plt Count 391, MPV 9.9, Neut % (Auto) 60.7, Lymph % (Auto) 31.5, [place] % (Auto) 5.2, Eos % (Auto) 1.7, Baso % (Auto) 0.5, Neut # (Auto) 8.4 H, Lymph # (Auto) 4.4, [place] # (Auto) 0.7, Eos # (Auto) 0.2, Baso # (Auto) 0.1, D-Dimer 0.47, Sodium 142, Potassium 3.6, Chloride 103, Carbon Dioxide 31 H, Anion Gap 11.6, BUN 14, Creatinine 1.00, Estimated GFR 55 L, Est GFR ( Amer) 67, Glucose 108 H, Calcium 9.6, Total Bilirubin 0.2, AST 27, ALT 23, Alkaline Phosphatase 112, Troponin I < 0.01, Total Protein 8.0, Albumin 4.3, Globulin 3.7 H, Albumin/Globulin Ratio 1.2 04/07/24 06:31: SARS-CoV-2 (PCR) Not detected, Influenza A Untype (PCR) Not detected, Influenza Type B (PCR) Not detected 04/07/24 06:33: VBG pH 7.34, VBG pCO2 54.8 H, VBG pO2 45.8 H, VBG HCO3 29.0, VBG Total CO2 30.7 H, VBG O2 Saturation 79.5 H, VBG Base Excess 3.3 H, VBG Lactic Acid 1.8 04/07/24 08:30: Troponin I < 0.01 04/07/24 06:10 04/07/24 06:10 Orders (Tests/Meds): ED MEDICATIONS Generic Name Dose Route Start Last Admin Trade Name Freq PRN Reason Stop Dose Admin Nitroglycerin 0.4 mg 04/07/24 06:15 Nitroglycerin 0.4mg Sl Tablet SL 05/07/24 06:14 [id number] PRN Chest Pain Discontinued Medications Generic Name Dose Route Start Last Admin Trade Name Freq PRN Reason Stop Dose Admin Albuterol/Ipratropium 6 ml 04/07/24 06:15 04/07/24 06:20 Ipratropium/Albuterol 3 Ml Neb IH 04/07/24 06:16 6 ml ONCE ONE Administration Aspirin 324 mg 04/07/24 06:15 04/07/24 06:21 Aspirin 81mg Chewable Tablet PO 04/07/24 06:16 324 mg ONCE ONE Administration Azithromycin 500 mg 04/07/24 08:45 04/07/24 09:09 Azithromycin 250mg Tablet PO 04/07/24 08:46 500 mg ONCE ONE Administration Methylprednisolone Sodium Succinate 80 mg 04/07/24 07:20 04/07/24 07:31 Methylprednisolone Sod Succ 125mg Vial IV 04/07/24 07:21 80 mg ONCE ONE Administration ORDERS Category Date Time Status CXR --portable [XR chest portable] Stat Exams 04/07/24 06:15 Completed CBC w/Auto Diff [Complete Blood Count Auto Diff] Stat Lab 04/07/24 06:10 Completed CMP [Comprehensive Metabolic Panel] Stat Lab 04/07/24 06:10 Completed D-Dimer Stat Lab 04/07/24 06:10 Completed Rapid PCR Covid and Flu A/B Stat Lab 04/07/24 06:31 Completed Troponin I Q3H Lab 04/07/24 06:10 Completed Troponin I Q3H Lab 04/07/24 08:30 Completed VBG [Venous Blood Gas] Stat RT 04/07/24 06:33 Completed ECG Data Tracing #1: I reviewed this ECG and interpreted as documented below: Sinus rhythm, ventricular rate of 82, PVC noted, no significant ST changes. ECG initial impression date: 04/07/24 ECG initial impression time: 06:17 HEART Score History (anamnesis): Moderately suspicious ECG: Normal Age: >65 years Risk factors: Atherosclerosis history Troponin: </= normal limit HEART Score: 5 Medical Decision Narrative: 68-year-old female with history of PE, COPD, coronary artery disease presents with relatively sudden onset chest pain shortness of breath. History was obtained via interactive discussion with patient. On arrival, patient is [afebrile, hemodynamically stable, satting appropriately, alert, oriented x4, GCS 15], moving all extremities spontaneously. Full physical exam performed and significant for mild wheezing bilaterally. Differential includes but is not limited to COPD exacerbation, PE, ACS, pneumonia, pneumothorax. Patient was given full dose aspirin, DuoNeb x 2, nitro for symptomatic management and correction of underlying abnormalities. Workup initiated including CBC CMP troponin D-dimer EKG chest x-ray. On re-evaluation, patient [remains afebrile, HD stable.] Laboratory workup independently interpreted by me and significant for D-dimer, negative initial troponin, mild leukocytosis, VBG with mild hypercarbia. Imaging independently interpreted by me and significant for chest x-ray without obvious opacity. See radiology read for full review of final results. EKG independently interpreted by me and significant for sinus rhythm without significant ST changes. Patient was placed in ED observation status for serial troponins and cardiac monitoring. <Jorge Kellogg MD - Last Filed: 04/07/24 09:19> Vital Signs: 04/07/24 06:06 04/07/24 06:31 04/07/24 06:47 Temperature 97.7 F Temperature Source Oral Pulse Rate 91 H 98 H Pulse Rate [Left] 96 H Respiratory Rate 15 21 Blood Pressure 125/62 Blood Pressure [Right Arm] 166/92 H Blood Pressure Mean [Right Arm] 116 Blood Pressure Position [Right Arm] Supine 02 Sat by Pulse Oximetry 96 92 L Oxygen Delivery Method Room Air 04/07/24 07:01 04/07/24 07:30 04/07/24 08:01 Temperature Temperature Source Pulse Rate 96 H 97 H 86 Pulse Rate [Left] Respiratory Rate 15 25 H 25 H Blood Pressure 126/50 L 133/53 L 112/53 L Blood Pressure [Right Arm] Blood Pressure Mean [Right Arm] Blood Pressure Position [Right Arm] 02 Sat by Pulse Oximetry 92 L 92 L 91 L Oxygen Delivery Method 04/07/24 08:35 Temperature Temperature Source Pulse Rate 90 Pulse Rate [Left] Respiratory Rate 19 Blood Pressure 137/70 Blood Pressure [Right Arm] Blood Pressure Mean [Right Arm] Blood Pressure Position [Right Arm] 02 Sat by Pulse Oximetry 93 L Oxygen Delivery Method Room Air Lab Data Lab Results 04/07/24 06:10: WBC 13.8 H, RBC 3.68 L, Hgb 10.1 L, Hct 32.5 L, MCV 88.3, MCH 27.4, MCHC 31.1 L, RDW 14.6, Plt Count 391, MPV 9.9, Neut % (Auto) 60.7, Lymph % (Auto) 31.5, [place] % (Auto) 5.2, Eos % (Auto) 1.7, Baso % (Auto) 0.5, Neut # (Auto) 8.4 H, Lymph # (Auto) 4.4, [place] # (Auto) 0.7, Eos # (Auto) 0.2, Baso # (Auto) 0.1, D-Dimer 0.47, Sodium 142, Potassium 3.6, Chloride 103, Carbon Dioxide 31 H, Anion Gap 11.6, BUN 14, Creatinine 1.00, Estimated GFR 55 L, Est GFR ( Amer) 67, Glucose 108 H, Calcium 9.6, Total Bilirubin 0.2, AST 27, ALT 23, Alkaline Phosphatase 112, Troponin I < 0.01, Total Protein 8.0, Albumin 4.3, Globulin 3.7 H, Albumin/Globulin Ratio 1.2 04/07/24 06:31: SARS-CoV-2 (PCR) Not detected, Influenza A Untype (PCR) Not detected, Influenza Type B (PCR) Not detected 04/07/24 06:33: VBG pH 7.34, VBG pCO2 54.8 H, VBG pO2 45.8 H, VBG HCO3 29.0, VBG Total CO2 30.7 H, VBG O2 Saturation 79.5 H, VBG Base Excess 3.3 H, VBG Lactic Acid 1.8 04/07/24 08:30: Troponin I < 0.01 Orders (Tests/Meds): ED MEDICATIONS Generic Name Dose Route Start Last Admin Trade Name Freq PRN Reason Stop Dose Admin Nitroglycerin 0.4 mg 04/07/24 06:15 Nitroglycerin 0.4mg Sl Tablet SL 05/07/24 06:14 [id number] PRN Chest Pain Discontinued Medications Generic Name Dose Route Start Last Admin Trade Name Freq PRN Reason Stop Dose Admin Albuterol/Ipratropium 6 ml 04/07/24 06:15 04/07/24 06:20 Ipratropium/Albuterol 3 Ml Neb IH 04/07/24 06:16 6 ml ONCE ONE Administration Aspirin 324 mg 04/07/24 06:15 04/07/24 06:21 Aspirin 81mg Chewable Tablet PO 04/07/24 06:16 324 mg ONCE ONE Administration Azithromycin 500 mg 04/07/24 08:45 04/07/24 09:09 Azithromycin 250mg Tablet PO 04/07/24 08:46 500 mg ONCE ONE Administration Methylprednisolone Sodium Succinate 80 mg 04/07/24 07:20 04/07/24 07:31 Methylprednisolone Sod Succ 125mg Vial IV 04/07/24 07:21 80 mg ONCE ONE Administration ORDERS Category Date Time Status CXR --portable [XR chest portable] Stat Exams 04/07/24 06:15 Completed CBC w/Auto Diff [Complete Blood Count Auto Diff] Stat Lab 04/07/24 06:10 Completed CMP [Comprehensive Metabolic Panel] Stat Lab 04/07/24 06:10 Completed D-Dimer Stat Lab 04/07/24 06:10 Completed Rapid PCR Covid and Flu A/B Stat Lab 04/07/24 06:31 Completed Troponin I Q3H Lab 04/07/24 06:10 Completed Troponin I Q3H Lab 04/07/24 08:30 Completed VBG [Venous Blood Gas] Stat RT 04/07/24 06:33 Completed HEART Score HEART Score: 5 Medical Decision Narrative: 68-year-old female with history of PE, COPD, coronary artery disease presents with relatively sudden onset chest pain shortness of breath. History was obtained via interactive discussion with patient. On arrival, patient is [afebrile, hemodynamically stable, satting appropriately, alert, oriented x4, GCS 15], moving all extremities spontaneously. Full physical exam performed and significant for mild wheezing bilaterally. Differential includes but is not limited to COPD exacerbation, PE, ACS, pneumonia, pneumothorax. Patient was given full dose aspirin, DuoNeb x 2, nitro for symptomatic management and correction of underlying abnormalities. Workup initiated including CBC CMP troponin D-dimer EKG chest x-ray. On re-evaluation, patient [remains afebrile, HD stable.] Laboratory workup independently interpreted by me and significant for D-dimer, negative initial troponin, mild leukocytosis, VBG with mild hypercarbia. Imaging independently interpreted by me and significant for chest x-ray without obvious opacity. See radiology read for full review of final results. EKG independently interpreted by me and significant for sinus rhythm without significant ST changes. Patient was placed in ED observation status for serial troponins and cardiac monitoring. Jorge Kellogg upon assumption of care patient was hemodynamically stable. Workup reviewed by me, initial hematologic labs are nonactionable, compensated acid-base status, no CRISTIAN or critical electrolyte abnormality. Initial troponin undetectably low. Patient was clear to auscultation upon my repeat evaluation. The patient was placed in observation status at 0800. Medical necessity for observational status is serial troponins and repeat physical exam. The patient was provided serial reevaluations and cardiac monitoring while awaiting results. Results of testing during observation remarkable for serial undetectably low troponins. Upon repeat evaluation patient did not have chest pain, just had some tightness which has been going on for multiple days with her increased cough. Chest x-ray informally visualized by me, low lung volumes with some haziness in the bilateral lower lobes and perihilar regions. Formal read mild bibasilar opacities [employer] of atelectasis or infection. Given slightly low lung volumes and bilateral symmetry of this I suspect this is due to atelectasis and not true lobar pneumonia. Patient underwent ambulatory pulse ox at bedside and did not go below 90%. Given this I feel the patient is appropriate for outpatient management at this time will be discharged with a course of steroids and azithromycin was given return precautions. Total time in observation was 79 minutes. Procedures <Shashank Wiseman MD - Last Filed: 04/07/24 06:54> Risk/Benefits of Procedure(s) Were Explained: Yes Critical Care <Shashank Wiseman MD - Last Filed: 04/07/24 06:54> Critical Care Time Critical Care Time: Yes Attestation: On 04/07/24, the high probability of a clinically significant, sudden or life threatening deterioration of the following system(s) required my full and direct attention, intervention and personal management. The time I documented below is in addition to time spent performing reported procedures but includes the following listed in this critical care notation. Total Time Total Critical Care Time: 35
[2024-04-07] MEDS: IPRATROPIUM/ALBUTEROL 3 ML NEB 6 ML IH (06:20)
[2024-04-07] MEDS: ASPIRIN 81MG CHEWABLE TABLET 324 MG PO (06:21)
[2024-04-07 06:23] LABS: Basophils # 0.1 K/mm3 (0-0.2); Basophils % 0.5 % (0.1-2.0); Eosinophils # 0.2 K/mm3 (0.0-0.4); Eosinophils % 1.7 % (0.1-12.0); Hematocrit 32.5 % (37.0-47.0); Hemoglobin 10.1 g/dL (12.2-16.2); Lymphocytes # 4.4 K/mm3 (0.7-4.5); Lymphocytes % 31.5 % (10-50); Mean Corpuscular HGB Conc 31.1 g/dL (31.8-35.4); Mean Corpuscular Hemoglobin 27.4 pg (27.0-31.2); Mean Corpuscular Volume 88.3 fl (81-99); Mean Platelet Volume 9.9 fl (7.4-10.4); Monocytes # 0.7 K/mm3 (0.1-1.0); Monocytes % 5.2 % (1.7-9.3); Neutrophils # 8.4 K/mm3 (1.8-7.8); Neutrophils % 60.7 % (37.0-80.0); Platelet Count 391 K/mm3 (142-424); Red Blood Count 3.68 M/mm3 (4.20-5.40); Red Cell Distribution Width 14.6 % (11.5-17.5); White Blood Count 13.8 K/mm3 (4.8-10.8)
[2024-04-07 06:26] LABS: Albumin Level 4.3 g/dl (3.5-5.0); Chloride 103 mmol/L (98-107); Potassium 3.6 mmoL/L (3.5-5.1); Sodium 142 mmol/L (136-145)
[2024-04-07 06:28] LABS: Blood Urea Nitrogen 14 mg/dl (7-17); Estimated Glomerular Filt Rate 55 ml/min (>60); GFR (African American) 67 ML/MIN (>60)
[2024-04-07 06:29] LABS: Alanine Aminotransferase 23 U/L (12-78); Albumin/Globulin Ratio 1.2 (1.1-1.8); Alkaline Phosphatase 112 U/L (38-126); Anion Gap 11.6 mEq/L (5-15); Aspartate Amino Transferase 27 U/L (14-36); Bilirubin,Total 0.2 mg/dl (0.2-1.3); Calcium 9.6 mg/dl (8.4-10.2); Carbon Dioxide 31 mmol/L (22.0-30.0); Globulin 3.7 g/dL (1.3-3.2); Glucose 108 mg/dl (74-100)
[2024-04-07 06:33] LABS: D-Dimer 0.47 ug/mL (0.0-0.5)
[2024-04-07 06:35] LABS: Coronavirus 19, PCR Not Detected (NotDetected); Influenza A, PCR Not Detected (NotDetected); Influenza B, PCR Not Detected (NotDetected)
[2024-04-07 06:46] LABS: Lactate Venous 1.8 mmol/L (0.4-2.0); VBG Base Excess 3.3 mmol/L (-2.4-2.3); VBG Oxygen Saturation 79.5 % (50-70); VBG PH 7.34 mmol/L (7.31-7.41); VBG PO2 45.8 mmol/L (28-40); VBG Total CO2 30.7 mmol/L (23-27)
[2024-04-07 06:46] LABS: Troponin I < 0.01 ng/ml (0.00-0.034)
[2024-04-07 06:48] LABS: VBG PCO2 54.8 mmol/L (35-51)
--- NOTE | 2024-04-07 06:54 | PC.NURSE ---
Blood cultures collected and sent to lab
[2024-04-07] MEDS: METHYLPREDNISOLONE SOD SUCC 125MG VIAL 80 MG IV (07:31)
--- NOTE | 2024-04-07 07:38 | PC.NURSE ---
ROUNDED ON THE PT. THE PT VOICES THAT SHE DOES NOT NEED ANYTHING AT THIS TIME. CALL LIGHT IS WITHIN REACH OF THE PT.
--- NOTE | 2024-04-07 08:27 | PC.NURSE ---
dr holloway at bedside to update pt on poc
--- NOTE | 2024-04-07 08:27 | PC.NURSE ---
ROUNDED ON THE PT. THE PT VOICES THAT SHE DOES NOT NEED ANYTHING AT THIS TIME. CALL LIGHT IS WITHIN REACH OF THE PT.
[2024-04-07] MEDS: AZITHROMYCIN 250MG TABLET 500 MG PO (09:09)
[2024-04-07 09:11] LABS: Troponin I < 0.01 ng/ml (0.00-0.034)
== END 2024-04-07 09:39 | disposition home or self-care (01) ==
PROVIDERS: Emergency Provider Emergency Medicine; PCP Nurse Practitioner
DX: J44.1 Chronic obstructive pulmonary disease with (acute) exacerbation (principal); R07.9 Chest pain, unspecified; R06.02 Shortness of breath; R68.84 Jaw pain; F17.210 Nicotine dependence, cigarettes, uncomplicated
CPT/HCPCS: 71045; 80053; 82803; 84484; 85025; 85378; 87636; 93005; 96374; 99291; J2919; J7620

== ENCOUNTER 2024-05-02 16:29 | Outpatient (CLI) | payer MEDICARE, SELFPAY ==
--- NOTE | 2024-05-02 16:38 | XR_ITS ---
PROCEDURE INFORMATION: Exam: XR Chest Exam date and time: 05/02/2024 4:39 PM Age: 68 years old Clinical indication: Cough TECHNIQUE: Imaging protocol: Radiologic exam of the chest. Views: 2 views. COMPARISON: CR XR CHEST PORTABLE 04/07/2024 6:43 AM FINDINGS: Tubes, catheters and devices: Cardiac pacemaker remains in place Lungs: Scattered calcified granulomas are present in both lungs. No active pulmonary infiltrate. Lung volumes appear normal. Pleural spaces: Unremarkable. No pleural effusion. No pneumothorax. Heart/Mediastinum: Unremarkable. No cardiomegaly. Bones/joints: Moderate degenerative changes in the spine and shoulders. IMPRESSION: No acute disease
[2024-05-02 19:06] LABS: Coronavirus 19, PCR Not Detected (NotDetected); Influenza A, PCR Not Detected (NotDetected); Influenza B, PCR Not Detected (NotDetected)
[2024-05-02 19:51] LABS: Basophils # 0.1 K/mm3 (0-0.2); Basophils % 0.7 % (0.1-2.0); Eosinophils # 0.1 K/mm3 (0.0-0.4); Eosinophils % 1.4 % (0.1-12.0); Hemoglobin 9.9 g/dL (12.2-16.2); Lymphocytes % 28.2 % (10-50); Mean Corpuscular HGB Conc 30.9 g/dL (31.8-35.4); Mean Corpuscular Hemoglobin 27.7 pg (27.0-31.2); Mean Corpuscular Volume 89.4 fl (81-99); Mean Platelet Volume 10.3 fl (7.4-10.4); Monocytes # 0.6 K/mm3 (0.1-1.0); Monocytes % 8.5 % (1.7-9.3); Neutrophils # 4.2 K/mm3 (1.8-7.8); Neutrophils % 60.6 % (37.0-80.0); Platelet Count 364 K/mm3 (142-424); Red Blood Count 3.58 M/mm3 (4.20-5.40); Red Cell Distribution Width 15.2 % (11.5-17.5); White Blood Count 6.9 K/mm3 (4.8-10.8)
[2024-05-02 19:57] LABS: Alanine Aminotransferase 32 U/L (12-78); Albumin/Globulin Ratio 1.4 (1.1-1.8); Alkaline Phosphatase 85 U/L (38-126); Anion Gap 11.8 mEq/L (5-15); Aspartate Amino Transferase 43 U/L (14-36); Bilirubin,Total 0.3 mg/dl (0.2-1.3); Blood Urea Nitrogen 13 mg/dl (7-17); Carbon Dioxide 26 mmol/L (22.0-30.0); Chloride 103 mmol/L (98-107); Estimated Glomerular Filt Rate 50 ml/min (>60); GFR (African American) 60 ML/MIN (>60); Globulin 2.9 g/dL (1.3-3.2); Glucose 85 mg/dl (74-100); Potassium 4.8 mmoL/L (3.5-5.1); Sodium 136 mmol/L (136-145); Total Protein,Serum 6.9 g/dl (6.3-8.2)
[2024-05-02 20:00] LABS: NT Pro Brain Natriuretic Pep. 99.2 pg/mL (0-125)
== END 2024-05-02 23:59 | disposition home or self-care (01) ==
LOC: RAD 16:30
PROVIDERS: PCP Family Medicine; Visit Provider Family Medicine
DX: R05.9 Cough, unspecified (principal); R69 Illness, unspecified; I51.89 Other ill-defined heart diseases; J44.1 Chronic obstructive pulmonary disease with (acute) exacerbation
CPT/HCPCS: 71046; 80053; 83880; 85025; 87636

== ENCOUNTER 2024-06-19 13:30 | Outpatient (CLI) | payer MEDICARE, SELFPAY ==
[2024-06-19 19:04] LABS: Basophils # 0.1 K/mm3 (0-0.2); Basophils % 0.6 % (0.1-2.0); Eosinophils # 0.2 Kmm3 (0.0-0.4); Eosinophils % 1.6 % (0.1-12.0); Hematocrit 31.5 % (37.0-47.0); Hemoglobin 9.7 g/dL (12.2-16.2); Immature Granulocytes # 0.04 10^3uL; Immature Granulocytes % 0.4 %; Lymphocytes # 2.6 K/mm3 (0.7-4.5); Lymphocytes % 24.7 % (10-50); Mean Corpuscular HGB Conc 30.8 g/dL (31.8-35.4); Mean Corpuscular Hemoglobin 28.2 pg (27.0-31.2); Mean Corpuscular Volume 91.6 fl (81-99); Mean Platelet Volume 10.6 fl (7.4-10.4); Monocytes # 0.5 K/mm3 (0.1-1.0); Monocytes % 4.9 % (1.7-9.3); Neutrophils % 67.8 % (37.0-80.0); Nucleated Red Blood Cells # 0 10^3/uL; Nucleated Red Blood Cells % 0 %; Platelet Count 355 K/mm3 (142-424); Red Blood Count 3.44 M/mm3 (4.20-5.40); Red Cell Distribution Width 15.7 % (11.5-17.5); Red Cell Distribution Width-SD 52.2 fL; White Blood Count 10.4 K/mm3 (4.8-10.8)
[2024-06-19 19:31] LABS: Alanine Aminotransferase 18 U/L (12-78); Albumin Level 3.9 g/dl (3.5-5.0); Albumin/Globulin Ratio 1.4 (1.1-1.8); Alkaline Phosphatase 93 U/L (38-126); Aspartate Amino Transferase 25 U/L (14-36); Bilirubin,Total 0.3 mg/dl (0.2-1.3); Blood Urea Nitrogen 14 mg/dl (7-17); Calcium 9.2 mg/dl (8.4-10.2); Carbon Dioxide 25 mmol/L (22.0-30.0); Chloride 108 mmol/L (98-107); Estimated Glomerular Filt Rate 62 ml/min (>60); GFR (African American) 76 ML/MIN (>60); Globulin 2.8 g/dL (1.3-3.2); Glucose 119 mg/dl (74-100); Sodium 139 mmol/L (136-145); Total Protein,Serum 6.7 g/dl (6.3-8.2)
== END 2024-06-19 23:59 | disposition home or self-care (01) ==
LOC: LAB.DROPOF 06-20 08:21
PROVIDERS: PCP Family Medicine; Visit Provider Family Medicine
DX: J43.9 Emphysema, unspecified (principal); J44.1 Chronic obstructive pulmonary disease with (acute) exacerbation; I10 Essential (primary) hypertension; F17.210 Nicotine dependence, cigarettes, uncomplicated
CPT/HCPCS: 80053; 85025

== ENCOUNTER 2024-06-27 15:35 | Outpatient (CLI) | payer MEDICARE, MEDICAID, SELFPAY ==
--- NOTE | 2024-06-27 16:00 | MM_ITS ---
PROCEDURE INFORMATION: Exam: MG Bilateral Screening 3D Mammography Exam date and time: 06/27/2024 3:51 PM Age: 68 years old Clinical indication: Screening mammogram/tomogram TECHNIQUE: Imaging protocol: Bilateral Screening tomosynthesis and 2D mammography including computer-aided detection (CAD) when performed. COMPARISON: 1. MG MM DIG SCREENING MAMM BI W/CAD 05/05/2023 3:22 PM 2. MG MM DIG SCREENING MAMM BI W/CAD 03/30/2022 3:59 PM 3. MG MM DIG SCREENING MAMM BI W/CAD 01/20/2021 3:25 PM 4. MG MM DIG SCREENING MAMM BI W/CAD 09/23/2019 4:23 PM FINDINGS: MAMMOGRAPHY: Breast composition: There are scattered areas of fibroglandular density. No new mass, architectural distortion, or suspicious cluster of calcifications has developed to suggest malignancy. No axillary adenopathy. IMPRESSION: No mammographic evidence of malignancy. Annual screening is recommended unless otherwise clinically indicated. ASSESSMENT: BI-RADS 1, Negative.
== END 2024-06-27 23:59 | disposition home or self-care (01) ==
LOC: RAD 15:36
PROVIDERS: PCP Family Medicine; Visit Provider Family Medicine
DX: Z12.31 Encounter for screening mammogram for malignant neoplasm of breast (principal)
CPT/HCPCS: 77063; 77067

== ENCOUNTER 2024-07-03 12:53 | Outpatient (CLI) | payer MEDICARE, MEDICAID, SELFPAY | END 2024-07-03 23:59 | disposition home or self-care (01) | LOC: RAD 12:53 | PROVIDERS: PCP Family Medicine; Visit Provider Family Medicine | DX: I11.9 Hypertensive heart disease without heart failure (principal); F17.210 Nicotine dependence, cigarettes, uncomplicated; E78.5 Hyperlipidemia, unspecified; I25.118 Atherosclerotic heart disease of native coronary artery with other forms of angina pectoris ==

== ENCOUNTER 2024-09-12 13:29 | Outpatient (CLI) | payer MEDICARE, SELFPAY ==
--- OUTSIDE RECORDS SUMMARY | 2024-09-12 13:31 | XMS_ITS ---
Author Organization Unknown TREATMENT PLAN [facility] Start Date Provider Encounter for Check-up [id number] [facility]
--- OUTSIDE RECORDS SUMMARY | 2024-09-12 13:31 | XMS_ITS | Clinical Summary ---
Author Organization Healthcare Address [address] [place] [address] Care Team Providers Care Tourist Escort Name Role Phone Luis Eckert MD Primary Care Provider Immunizations Immunization Administration Dates Next Due Influenza, Unspecified 11/16/2016 Family History Medical History Relation Name Comments Coronary artery disease Other 1 Diabetes Other 2 Hypertension Other 3 Other cancer Other 4 Relation Name Status Comments Other 1 Other 2 Other 3 Other 4 Social History Tobacco Use Types Packs/Day Years Used Date Smoking Tobacco: Every Day Comments Unknown Sex and Gender Information Value Date Recorded Sex Assigned at Not on file Legal Sex Female 6:34 PM EDT Gender Identity Not on file Sexual Orientation Not on file Last Filed Vital Signs Vital Sign Reading Time Taken Comments Blood Pressure 155/69 08/01/2022 4:53 PM EDT Pulse 80 10/10/2017 1:38 PM EDT Temperature 36.7 C (98 F) 10/10/2017 1:38 PM EDT Respiratory Rate 16 10/10/2017 1:38 PM EDT Oxygen Saturation - - Inhaled Oxygen Concentration - - Weight 93.9 kg (207 lb) 08/01/2022 4:53 PM EDT Height 157.5 cm (5' 2 ) 08/01/2022 4:53 PM EDT Body Mass Index 37.86 08/01/2022 4:53 PM EDT Plan of Treatment Health Maintenance Due Date Last Done Comments [facility]-Bone Density Scan 1956 [facility]-Depression Screening 1956 [facility]-/Child/Adol SDOH Screenings 1956 [facility]- SDOH Screenings 1974 [facility]-Adult SDOH Screenings 1974 [facility]-DTaP,Tdap,and Td Vaccines (1 - Tdap) 10/13/1975 CT Colonography 2001 Colonoscopy 2001 FIT-DNA 2001 FIT 2001 FOBT 2001 Sigmoidoscopy 2001 [facility]-Colorectal Cancer Screening 2001 [facility]-Pneumococcal Vaccine: 50+ Years (1 of 1 - PCV) 2006 [facility]-Zoster Vaccines (1 of 2) 2006 [facility]X-SYLXP-61 Vaccine (3 - season) 2023 11/16/2020, 10/02/2020 [facility]-Influenza Vaccine (#1) 10/14/202411/21, 11/23/2018, 11/16/2017, Additional history exists [facility]-RSV Vaccine: 60+ Years or (1 - 1-dose 75+ series) 10/13/2031 HPV Vaccines Aged Out No longer eligi ble based on patient's age to complete this topic [facility]-HIB Vaccines Aged Out No longer e ligible based on patient's age to complete this topic [facility]-Hepatitis A Vaccines Aged Out No longer eligible based on patient's age to complete this topic [facility]-IPV Vaccines Aged Out No longer e ligible based on patient's age to complete this topic [facility]-Rotavirus Vaccines Aged Out No lo nger eligible based on patient's age to complete this topic Insurance Care Teams Tourist Escort Relationship Specialty Start Date End Date Luis Eckert MD [address] [place] [address] [place] [address] PCP - General 06/26/20
--- NOTE | 2024-09-12 14:00 | CT_ITS ---
FINAL REPORT TECHNIQUE: Thin section axial images were obtained through the lungs using a low-dose technique per lung cancer screening protocol. Reconstruction images were obtained using the axial data. Exam was performed using dose reduction technique. CLINICAL HISTORY: lung cancer screening, current smoker for 40 years 1.5ppd COMPARISON: 07/12/2023 FINDINGS: CTDLvol: 2.90 DLP: 109.68 Current smoker 60 pack year history Lungs: Left upper lobe 3 mm nodule on series 4, image 30 is stable for greater than 2 years per report. There is evidence of prior granulomatous disease. The lungs are otherwise clear. No consolidation. Lymph nodes: No thoracic lymphadenopathy. Mediastinum: Heart size is normal. Pleura/pericardium: No pleural or pericardial effusion. Other: Limited images of the upper abdomen demonstrate gallstones. No acute findings. IMPRESSION: Left upper lobe 3 mm nodule stable for greater than 2 years per report. Lung RADS: 1 Recommendation: 12 month follow-up low-dose CT. Reviewed, Interpreted and Dictated by Leeanna Shannon MD Transcribed by Maria Elena Lizarraga Authenticated and [facility]
== END 2024-09-12 23:59 | disposition home or self-care (01) ==
LOC: RAD 13:29
PROVIDERS: PCP Family Medicine; Visit Provider Internal Medicine Pulmonary Disease
DX: R91.1 Solitary pulmonary nodule (principal); F17.210 Nicotine dependence, cigarettes, uncomplicated; Z12.2 Encounter for screening for malignant neoplasm of respiratory organs
CPT/HCPCS: 71271

== ENCOUNTER 2024-11-28 12:59 | Day surgery (SDC) | payer MEDICARE, SELFPAY ==
[2024-11-21 15:38] VITALS: BMI 38.4
--- NOTE | 2024-11-27 16:58 | P.HP_ITS ---
History of Present Illness *Admission Date: 11/28/24 *History of present illness: Mrs. Johnson is a 69-year-old female who is here for diagnostic colonoscopy. The patient does report bleeding internal hemorrhoids and a long history of chronic constipation. She does have some hemorrhoidal prolapse. She is on Eliquis and when they decrease the dosage, she had some reduction of the rectal bleeding but not resolution. She did undergo a colonoscopy with Dr. Andrew Weaver M.D. in October 2018 and had 3 benign polyps (hyperplastic polyps x 3) which were removed. Preparation was described as very poor. She has not had a colonoscopy since then. She does get a lot of gassiness and bloating. The examination is deemed medically necessary for diagnostic colonoscopy. The patient has been seen, interviewed and examined prior to the procedure by both myself and the anesthesia provider. [facility] Disclaimer: The information contained in this section may have been updated after the patient was seen, as this information can be updated by other users. Medical History Salivary cyst Bilateral pulmonary embolism Pulmonary embolism Atypical chest pain Pre-syncope Acute chest wall pain Diastolic dysfunction Pulmonary emphysema Dyspnea on exertion Encounter for screening for malignant neoplasm of lung History of pulmonary embolism Smoking greater than 30 pack years Renal cyst Headache Tobacco dependence Chronic low back pain GERD (gastroesophageal reflux disease) Chronic anemia Gallstones Sleep apnea COPD (chronic obstructive pulmonary disease) Irritable bowel syndrome (IBS) Allergies Hypertension Hyperlipidemia Cardiac pacemaker in situ CAD (coronary artery disease) Surgical History S/P cardiac cath H/O tubal ligation H/O total hysterectomy History of pacemaker Family History Mother Family history of diabetes mellitus type II Cancer Kidney failure History of open heart surgery Father Family history of acute heart failure Family history of arthritis Social History (Updated 11/28/24 @ 13:21 by Cydney Bess RN) Smoking Status: Current every day smoker tobacco type: cigarettes packs per day: 1 years smoked: 45 quit status: considering quitting second hand exposure: Yes alcohol intake: never counseling provided: none substance use type: denies use current occupational status: disabled Travel in the last 8 weeks?: None household members: spouse housing: house current occupational exposures/hazards: No caffeine: Yes Have you lived/traveled outside [place] in past 30 days?: No Contact w/someone who lives/traveled outside US past 30 days?: No Exposure to someone with infectious disease in past 14 days?: No Do you have a fever (greater than 100.4 F or 38 C)?: No Have you tested positive for COVID-19?: No Exposed to someone with COVID-19 in past 14 days?: No Do you have a sore throat?: No Do you have a cough?: No Do you have any weakness?: No Are you experiencing any nausea/vomitting?: Yes Do you have any diarrhea?: No Are you experiencing any unusual bleeding?: No Do you have any muscle aches/pain?: No Do you have any abdominal pain?: No Are you experiencing loss of taste or smell?: No Other Medical History Have you received the Flu Vaccine for this season: No Have you received the Pneumonia Vaccine: Yes Review of Systems Review of Systems Review of systems (narrative): Negative *Cardiovascular Comments: Negative *Gastrointestinal Comments: Negative *Genitourinary Comments: Negative *Musculoskeletal Comments: Negative *Neurologic Comments: Negative Meds Home Medications and Allergies Home Medications ?Medication ?Instructions ?Recorded ?Confirmed ?Type metoprolol succinate 50 mg 50 mg PO DAILY High blood p ressure 05/01/24 11/28/24 Rx tablet,extended release 24 hr #90 tabs lisinopril 5 mg tablet 5 mg PO DAILY High blood pre ssure 07/15/24 11/28/24 Rx #90 tabs fluticasone propionate 50 2 spray intranasal DAILY 90 days 07/30/24 11/28/24 Rx mcg/actuation nasal #16 grams spray,suspension (Flonase Allergy Relief) pantoprazole 40 mg tablet,delayed See Rx Instructions .Route 08/26/24 11/28/24 Rx release .COMPLEX #90 tabs apixaban 2.5 mg tablet (Eliquis) 2.5 mg PO BID #60 tab s 08/27/24 11/28/24 Rx atorvastatin 40 mg tablet See Rx Instructions .Route 0 08/30/24 11/28/24 Rx .COMPLEX #90 tabs spironolactone 50 mg tablet 50 mg PO BID Fluid #180 ta bs 08/30/24 11/28/24 Rx multivitamin-calcium, 1 tab PO DAILY 09/23/2411/13 History [id number] isoflavone 400 mcg-60 mg tablet (One-A-Day Menopause Formula) acetaminophen 325 mg tablet 325 mg PO QID PRN Pain 11/28/24 History (Tylenol) vitamins-lipotropics 200 mg-100 mg 1 tab PO .every oth er day 10/08/24 11/28/24 History tablet (Lipo-Flavonoid Plus) meclizine 25 mg tablet See Rx Instructions .Route 0 10/09/24 11/28/24 Rx .COMPLEX #60 tabs sodium,potassium,mag sulfates 17.5 See Rx Instructions PO .COMPLEX 11/15/24 11/28/24 Rx gram-3.13 gram-1.6 gram oral soln #354 mL (Suprep Bowel Prep Kit) budesonide-formoterol HFA 160 2 puff inhalation BID 90 days 11/18/24 11/28/24 Rx mcg-4.5 mcg/actuation aerosol #10.2 grams inhaler (Symbicort) albuterol sulfate 90 mcg/actuation 1 puff inhalation A S NEEDED PRN 11/21/24 11/28/24 History aerosol inhaler Shortness Of Breath New Prescriptions to Start Prescriptions: Allergies Allergy/AdvReac Type Severity Reaction Status Date / Time latex (LATEX) Allergy Intermediate I-RASH Verified 11/28/24 13:30 codeine (CODEINE) Allergy Mild NA-NAUSEA, Verified 11/28/24 13:30 CHEST PRESSURE tuberculin,PPD,multi-puncture Allergy Mild POSITIVE Verified 11/28/24 13:30 (TUBERCULIN,PPD,MULTI-PUNCTURE) REACTOR sulfamethoxazole (From Allergy Unknown RASH,VOMITI Verified 11/28/24 13:30 BACTRIM) NG trimethoprim (From BACTRIM) Allergy Unknown Rash Verified 11/28/24 13:30 Exam *Routine HEENT Exam Head: Present normocephalic Eye: Present EOMI and PERRL ENT: Present mucous membranes moist *Routine Neck Exam Neck: Present supple *Routine Respiratory Exam Respiratory: Present CTA bilaterally *Routine Cardiovascular Exam Cardiovascular: Present RRR *Routine Abdominal Exam Abdominal: Present soft and normoactive bowel sounds; Absent tenderness *Routine Rectal Exam Rectal:: deferred *Routine Genitalia Exam Genitalia:: deferred *Routine Extremities Exam Extremities: Absent cyanosis, clubbing or edema *Routine Skin Exam Skin: Present warm; Absent rash *Routine Neurological Exam Neurological: Present alert and oriented X3 Assessment and Plan *Assessment and plan (1) Chronic constipation: Status: Acute Category: Medical Code(s): K59.09 - Other constipation (2) Bloating: Status: Acute Category: Medical Code(s): R14.0 - Abdominal distension (gaseous) (3) Bleeding internal hemorrhoids: Status: Acute Category: Medical Code(s): K64.8 - Other hemorrhoids Plan A/P: 1. Bleeding internal hemorrhoids with bloating and chronic constipation is the preprocedural diagnosis. The patient will be anesthetized/sedated using MAC sedation. The patient has been seen and examined. Cardiac and lung assessment prior to the examination is stable. Proceed with planned diagnostic colonoscopy.
--- NOTE | 2024-11-28 07:19 | HMH.PROCNOTE ---
[facility] Procedure Note Date: 11/28/24 Time: 14:53 Procedure Note:: Colonoscopy Procedure Report: Colonoscopy with cold snare polypectomy and hemorrhoid band ligation Endoscopist: Jerel Adkins II, MD Referring physician: BUD Gilmore Date of Procedure: November 28, 2024 Equipment: Olympus [id number] adult colonoscope Sedation: MAC sedation Indication: Mrs. Johnson is a 69-year-old female who is here for diagnostic colonoscopy. The patient does report bleeding internal hemorrhoids and a long history of chronic constipation. She does have some hemorrhoidal prolapse. She is on Eliquis and when they decrease the dosage, she had some reduction of the rectal bleeding but not resolution. She continues to have bleeding and hemorrhoid prolapse. She does have some bloating and lower abdominal discomfort. She does take MiraLAX for her chronic constipation. She reports no family history of colon cancer. She did undergo a colonoscopy with Dr. Andrew Weaver M.D. in October 2018 and had 3 benign polyps (hyperplastic polyps x 3) which were removed. Preparation was described as very poor. She has not had a colonoscopy since then. She does get a lot of gassiness and bloating. The examination is deemed medically necessary for diagnostic colonoscopy. Procedure: Prior to the procedure, a history and physical exam was performed, and patient's medications and allergies were reviewed. The risks, benefits and alternatives of the sedation and procedure were discussed with the patient. All questions were answered and informed consent was obtained. The patient was brought to the procedure room. Patient identification and proposed procedure were verified by the physician and the nurse. The patient was placed in a left lateral decubitus position and the scope was passed under direct vision. Throughout the procedure, the patient's blood pressure, pulse, and oxygen saturations were monitored continuously. The colonoscopy was accomplished without difficulty. The patient tolerated the procedure well. Findings: On digital rectal examination there was normal rectal tone. There were no external hemorrhoids. The colonoscope was introduced through the anal canal to the rectum and advanced to the cecum. The ileocecal valve and appendiceal orifice were identified. The scope was advanced a short distance into the ileum which appeared grossly normal. The scope was then withdrawn into the colon. The cecum, ascending, transverse, descending, sigmoid and rectum were grossly normal. There were 2 hyperplastic appearing polyps (sigmoid x 1 (5 mm) and rectum x 1 (5 mm)). Both of these were removed via cold snare polypectomy. There were no other mucosal abnormalities identified. Upon retroflexion within the rectum there were grade 2-3 internal hemorrhoids. 3 columns of hemorrhoids were banded using 4 bands with excellent ligation effect. The preparation was excellent throughout with [place] Preparation Score of 9. The cecal time was 14 minutes. Impression: 1. Diminutive hyperplastic appearing polyps x 2 2. Grade 2-3 internal hemorrhoids status post band ligation x 4 Plan: I will follow-up the polyp histology and recommend repeat screening/surveillance colonoscopy again in 10 years if the polyps are hyperplastic. I would continue MiraLAX on a regular daily basis with the addition of Citrucel. I will discuss the findings with the patient and family.
[2024-11-28 13:20] VITALS: BP 143/77; PULSE 78; RESP 16; TEMP 36.6; O2SAT 95
[2024-11-28 13:29] VITALS: BMI 38.4
[2024-11-28] MEDS: LACTATED RINGERS 1000ML 1,000 ML 50 ML IV (13:33)
--- NOTE | 2024-11-28 14:05 | EXP.ANES.CKL ---
[facility] Disclaimer: The information contained in this section may have been updated after the patient was seen, as this information can be updated by other users. Medical History Salivary cyst Bilateral pulmonary embolism Pulmonary embolism Atypical chest pain Pre-syncope Acute chest wall pain Diastolic dysfunction Pulmonary emphysema Dyspnea on exertion Encounter for screening for malignant neoplasm of lung History of pulmonary embolism Smoking greater than 30 pack years Renal cyst Headache Tobacco dependence Chronic low back pain GERD (gastroesophageal reflux disease) Chronic anemia Gallstones Sleep apnea COPD (chronic obstructive pulmonary disease) Irritable bowel syndrome (IBS) Allergies Hypertension Hyperlipidemia Cardiac pacemaker in situ CAD (coronary artery disease) Surgical History S/P cardiac cath H/O tubal ligation H/O total hysterectomy History of pacemaker Family History Mother Family history of diabetes mellitus type II Cancer Kidney failure History of open heart surgery Father Family history of acute heart failure Family history of arthritis Social History (Updated 11/28/24 @ 13:21 by Cydney Bess RN) Smoking Status: Current every day smoker tobacco type: cigarettes packs per day: 1 years smoked: 45 quit status: considering quitting second hand exposure: Yes alcohol intake: never counseling provided: none substance use type: denies use current occupational status: disabled Travel in the last 8 weeks?: None household members: spouse housing: house current occupational exposures/hazards: No caffeine: Yes Have you lived/traveled outside US in past 30 days?: No Contact w/someone who lives/traveled outside US past 30 days?: No Exposure to someone with infectious disease in past 14 days?: No Do you have a fever (greater than 100.4 F or 38 C)?: No Have you tested positive for COVID-19?: No Exposed to someone with COVID-19 in past 14 days?: No Do you have a sore throat?: No Do you have a cough?: No Do you have any weakness?: No Are you experiencing any nausea/vomitting?: Yes Do you have any diarrhea?: No Are you experiencing any unusual bleeding?: No Do you have any muscle aches/pain?: No Do you have any abdominal pain?: No Are you experiencing loss of taste or smell?: No [facility] Anesthesia Checklist Patient Identification Patient Identification: Arm Band Structural Data Admitted From: Home Planned Operative Procedure/s: Colonoscopy Consent for Planned Operative Procedure(s) Verified: Yes Verified Documents: Surgical Consent and History and Physical NPO Status Verified Time NPO: 09:00 (finished prep) Additional verifications Anesthesia Reactions: No Airway Assessment Mallampati Score:: Class II C-Spine Mobility Assessed: Yes TMJ Mobility Assessed: Yes Dentition: Edentulous Neurological Assessment Level of Consciousness: Awake, Alert and Appropriate Anesthesia Plan Anesthesia Risk discussed: Yes Anesthesia Plan: Verified ASA Class: III Anesthesia Type: MAC
[2024-11-28 15:05] VITALS: BP 96/48; PULSE 77; RESP 18; TEMP 36.1; O2SAT 93
[2024-11-28 15:15] VITALS: BP 117/52; BP 135/74; PULSE 69; PULSE 74; RESP 18; O2SAT 95; O2SAT 96
[2024-11-28 15:25] VITALS: BP 135/74; PULSE 74; RESP 18; O2SAT 96
[2024-11-28 15:35] VITALS: BP 118/75; PULSE 82; RESP 18; O2SAT 96
[2024-11-28] MEDS: diazePAM 5MG TABLET 5 MG PO (16:05)
== END 2024-11-28 16:12 | disposition home or self-care (01) ==
PROVIDERS: PCP Family Medicine; Visit Provider Internal Medicine Gastroenterology
PROC: 0DJD8ZZ Inspection of Lower Intestinal Tract, Via Natural or Artificial Opening Endoscopic (ICD-10-PCS; CPT 45378; principal; 2024-11-28 14:30)
DX: K63.5 Polyp of colon (principal); K59.09 Other constipation; K64.1 Second degree hemorrhoids; K64.2 Third degree hemorrhoids; J44.9 Chronic obstructive pulmonary disease, unspecified; F17.210 Nicotine dependence, cigarettes, uncomplicated; E78.5 Hyperlipidemia, unspecified; I10 Essential (primary) hypertension; I25.10 Atherosclerotic heart disease of native coronary artery without angina pectoris; K21.9 Gastro-esophageal reflux disease without esophagitis; Z79.01 Long term (current) use of anticoagulants; Z88.2 Allergy status to sulfonamides; Z88.6 Allergy status to analgesic agent; Z86.0102 Personal history of hyperplastic colon polyps
CPT/HCPCS: 45385; 88305; C1889; J2003; J2704; J7120